=== PATIENT | male | born 1940 | race Caucasian/White ===

== ENCOUNTER 2021-06-28 12:51 | Inpatient (IN) | payer MEDICARE, OTHER ==
[~2021-06-28] VITALS: Ht 162.6 cm; Wt 66.7 kg
--- NOTE | 2021-06-28 13:00 | NUR ---
TONA PA FROM [facility]ARE [facility]ACILITY,LACERATION TO LEFT EYEBROW,S/P UNWITNESSED GLF. THE PATIENT DENIES PAIN. IN ROOM AIR AND DENIES SOB. RESPIRATION REGULAR AND UNLABORED. WILL CONTINUE TO MONITOR THE PATIENT.
--- NOTE | 2021-06-28 13:01 | NUR ---
PT ABLE TO AMBULATE. AWARE.
[2021-06-28] MEDS ORDERED: BACI/NEOM/POLY B OINT PKT 1 UDPKT PACKET TP ONE (13:30)
[2021-06-28] MEDS ORDERED: IV NS 0.9% 500 ML BAG IV ONE (14:00)
[2021-06-28 14:10] LABS: BASOPHILS % (AUTO) 0.3 % (0.0-2.0); HEMATOCRIT 34 % (39-51); HEMOGLOBIN 11.4 g/dL (13.5-17.5); LYMPHOCYTES # (AUTO) 0.8 K/uL (0.8-4.8); LYMPHOCYTES % (AUTO) 15.6 % (20.0-44.0); MEAN CORPUSCULAR HGB CONC 33 g/dl (31.0-36.0); MEAN CORPUSCULAR VOLUME 83 fL (80-96); MONOCYTES # (AUTO) 0.4 K/uL (0.1-1.30); MONOCYTES % (AUTO) 7.9 % (2.0-12.0); NEUTROPHILS # (AUTO) 3.8 K/uL (1.8-8.9); NEUTROPHILS % (AUTO) 72.2 % (43.0-81.0); PLATELET COUNT (AUTO) 172 K/uL (150-450); RED BLOOD CELL COUNT(AUTO) 4.12 MIL/uL (4.5-6.0); WHITE BLOOD COUNT (AUTO) 5.3 K/uL (4.3-11.0)
[2021-06-28] MEDS ORDERED: DOCU-270 PO (14:18)
[2021-06-28] MEDS ORDERED: CHOL200013 PO (14:18)
[2021-06-28] MEDS ORDERED: CRAN400C PO (14:18)
[2021-06-28] MEDS ORDERED: PROP10TA10 PO (14:18)
[2021-06-28] MEDS ORDERED: FERR325T23 PO (14:18)
[2021-06-28] MEDS ORDERED: RISP2TAB85 PO (14:18)
[2021-06-28] MEDS ORDERED: TAMS-12 PO (14:18)
[2021-06-28] MEDS ORDERED: DONE5TAB34 PO (14:18)
[2021-06-28] MEDS ORDERED: GABA-532 PO (14:18)
[2021-06-28] MEDS ORDERED: TRAZ-257 PO (14:18)
[2021-06-28 14:26] LABS: CALCIUM, SERUM 8.6 mg/dL (8.5-10.1); CARBON DIOXIDE 27 mmol/L (21-32); CHLORIDE 94 mmol/L (98-107); CREATININE 0.6 mg/dL (0.6-1.3); GLUCOSE 102 mg/dL (74-106); POTASSIUM 5.1 mmol/L (3.5-5.1); SODIUM SERUM 126 mmol/L (136-145); UREA NITROGEN, BLOOD 20 mg/dL (7-18)
[2021-06-28 14:33] LABS: ALANINE AMINOTRANSFERASE 25 U/L (12-78); ALBUMIN 3.7 g/dL (3.4-5.0); ALKALINE PHOSPHATASE 101 U/L (46-116); ASPARTATE AMINOTRANSFERASE 27 U/L (15-37); BILIRUBIN,DIRECT 0.1 mg/dL (0.0-0.2); BILIRUBIN,TOTAL 0.4 mg/dL (0.2-1.0)
--- NOTE | 2021-06-28 14:34 | NUR ---
COVID ANTIGEN SWAB DONE AND SENT TO THE LAB
[2021-06-28 14:35] LABS: SERUM AMMONIA 16 umol/L (11-32)
[2021-06-28 14:37] LABS: ACETAMINOPHEN < 0 ug/ml (10-30); ALCOHOL, BLOOD < 3 mg/dL (0-0)
--- NOTE | 2021-06-28 15:00 | NUR ---
URINE COLLECTED AND SENT TO THE LAB
[2021-06-28 15:21] LABS: THYROID STIMULATING HORMONE 2.243 uIU/mL (0.358-3.74)
[2021-06-28 15:36] LABS: BILIRUBIN,URINE NEGATIVE (NEGATIVE); COLOR,URINE YELLOW (YELLOW); LEUKOCYTE ESTERASE ,URINE NEGATIVE (NEGATIVE); NITRITE, URINE NEGATIVE (NEGATIVE); PH,URINE 6.5 (5.0-8.0); PROTEIN,URINE NEGATIVE (NEGATIVE); UGLUCOSE NEGATIVE (NEGATIVE); UROBILINOGEN,URINE 0.2 EU/dL (0.2)
[2021-06-28 16:15] LABS: BACTERIA,URINE Few /HPF (None Seen); RBC,URINE 0-2 /HPF (0-2); SQUAMOUS EPITHELIAL CELL,UR Few /HPF (None Seen); WBC,URINE 0-2 /HPF (0-3)
[2021-06-28] MEDS ORDERED: TDAP [DIPH/PERTUSSIS/TET] 0.5 ML VIAL IM ONE ×2 (16:30→16:38)
--- NOTE | 2021-06-28 19:12 | NUR ---
REPORT GIVEN TO NURSE CARLIN FOR JUAN
--- NOTE | 2021-06-28 22:20 | NUR ---
GAVE REPORT TO AKOSUA LANE FOR JUAN
--- NOTE | 2021-06-28 22:30 | NUR ---
RN NOTES TELE PT RECEIVED FROM ER ASSESTED BY TWO PERSONEL WITH DELL.PT AOX1 ABLE TO FOLLOW SIMPLE DIRECTION.RM AIR CAROLINA WELL.NO SIGN SOB DISTRESS NOTED.NO COMPLAIN OF PAIN/DISCOMFORT NOTED.V/S TAKEN AND RECORDED.ALL NEEDS ATTENDED.CALL LIGHT WITHIN REACH.BED LUCK AND LOW POSITION.CONTINUE TO MONITOR.
[2021-06-28] MEDS: TRAZODONE 50 MG TABLET PO SCH (23:24)
[2021-06-28] MEDS: DONEPEZIL 5 MG TABLET PO SCH (23:24)
[2021-06-28] MEDS: TAMSULOSIN 0.4 MG CAP.SR.24H PO SCH (23:24)
[2021-06-28] MEDS: GABAPENTIN 100 MG CAPSULE PO SCH (23:24)
[2021-06-28 23:30] VITALS: BP 123/55
[2021-06-29] VITALS: BP 127/58
[2021-06-29] MEDS: IV NS 0.9% 1,000 ML IV PRN (01:18)
[2021-06-29] MEDS ORDERED: ACETAMINOPHEN 325 MG TABLET PO PRN (01:30)
[2021-06-29] MEDS ORDERED: MAG HYDROX/AL HYDROX/SIMETH 30 ML UDC PO PRN (01:30)
[2021-06-29] MEDS ORDERED: MAGNESIUM HYDROXIDE 30 ML UDC PO PRN (01:30)
[2021-06-29] MEDS ORDERED: ONDANSETRON HCL/PF 4 MG/2 ML VIAL IVP PRN (01:30)
[2021-06-29] MEDS: ENOXAPARIN SODIUM 40 MG/0.4 ML DISP.SYRIN SQ SCH ×2 (01:32→21:27)
--- NOTE | 2021-06-29 01:55 | NUR ---
RN NOTES TELE PT WAS AGITATED.GETTING OUT OF BED MANYTIMES.WONDERING AROUND THE HALLWAY.DOC DEX ORDERED SEROQUEL 25 MG PO ONE TIME.EFFECTIVE.NO A/R NOTED.
[2021-06-29] MEDS ORDERED: QUETIAPINE FUMARATE 25 MG TABLET PO ONE (02:30)
[2021-06-29 03:01] VITALS: BP 123/55
[2021-06-29 04:00] VITALS: BP_SYST 105; BP_SYST 127; BP_DIAS 58; BP_DIAS 60
--- NOTE | 2021-06-29 06:25 | NUR ---
RN CLOSING NOTES TELE PT IN BED SLEEPING IN RM AIR SATING 98%.NO SIGN SOB/DISTRESS NOTED.IV LINE RFA #20G PATENT/INTACT RUNNING 0.9% NS @ 75ML/HRS CAROLINA WELL.BREATHING EVEN AND UNLABORED.NO COMPLAIN PAIN/DISCOMFORT DURING SHIFT.CALL LIGHT WITHIN REACH,SAFETY MEASURED INPLACE.BED LOCKED AND LOW POSITION.WILL ENDORSED NEXT SHIFT.
--- NOTE | 2021-06-29 07:26 | NUR ---
RN NOTES RESTING IN BED, AWAKE AND VERBALLY RESPONSIVE. NOT IN ACUTE DISTRESS. ABLE TO AMBULATE TO BATHROOM W/ ASSIST. CONFUSED, REORIENTATION PROVIDED APPLICABLE. IV LINE INTACT W/ IVF INFUSING. SAFETY MEASURES IN PLACE.
[2021-06-29 08:00] VITALS: BP 139/78
[2021-06-29] MEDS: PROPRANOLOL HCL 10 MG TABLET PO SCH ×2 (08:07→17:10)
[2021-06-29] MEDS: FERROUS SULFATE (325 MG) 325 MG/TAB TABLET PO SCH (08:07)
[2021-06-29] MEDS: DOCUSATE SODIUM 100 MG CAPSULE PO SCH (08:07)
[2021-06-29] MEDS: GABAPENTIN 100 MG CAPSULE PO SCH ×4 (08:07→21:23)
[2021-06-29] MEDS: risperiDONE 0.25 MG TABLET PO SCH ×3 (08:07→17:10)
--- NOTE | 2021-06-29 09:22 | NUR ---
RN NOTES SITTING UP IN CHAIR NEAR BED; DOES NOT WANT IVF AT THIS TIME. ABLE TO EAT BREAKFAST AND DRINK FLUIDS.
--- NOTE | 2021-06-29 09:45 | NUR ---
RN NOTES PT AT BEDSIDE FOR EVAL AND TX.
--- NOTE | 2021-06-29 10:50 | NUR ---
RN NOTES PATIENT SEEN BY SPEECH THERAPIST FOR EVAL; NO SWALLOWING ISSUES PER ST.
[2021-06-29 16:00] VITALS: BP 117/59
--- NOTE | 2021-06-29 19:28 | NUR ---
RN OPENING NOTES TELE PT IN BED SLEEPING IN AIR SATING 98%.NO SIGN SOB/DISTRESS NOTED.IV LINE RFA #20G PATENT/INTACT RUNNING 0.9% NS @ 75ML/HRS CAROLINA WELL.BREATHING EVEN AND UNLABORED.NO COMPLAIN PAIN/DISCOMFORT DURING SHIFT.CALL LIGHT WITHIN REACH,SAFETY MEASURED INPLACE.BED LOCKED AND LOW POSITION.WILL CONTINUE TO MONITOR.. Addendum: 06/30/21 at 1947 by LIANA NICOLE RN ON TELE MONITOR READING NS 76
[2021-06-29 20:00] VITALS: BP 119/60
[2021-06-29] MEDS: DONEPEZIL 5 MG TABLET PO SCH (21:23)
[2021-06-29] MEDS: TRAZODONE 50 MG TABLET PO SCH (21:23)
[2021-06-29] MEDS: TAMSULOSIN 0.4 MG CAP.SR.24H PO SCH (21:23)
[2021-06-30] VITALS: BP 137/69
[2021-06-30] MEDS: IV NS 0.9% 1,000 ML IV PRN (01:02)
[2021-06-30 01:17] VITALS: BP 119/60
[2021-06-30 04:00] VITALS: BP 129/52
--- NOTE | 2021-06-30 06:35 | NUR ---
RN CLOSING NOTES TELE PT IN BED SLEEPING CAROLINA WELL ON ROOM AIR.NO SIGN SOB/DISTRESS NOTED.IV LINE RFA #20G PATENT/INTACT RUNNING 0.9% NS @ 75ML/HRS CAROLINA WELL.BREATHING EVEN AND UNLABORED.NO COMPLAIN PAIN/DISCOMFORT DURING SHIFT.CALL LIGHT WITHIN REACH,SAFETY MEASURED INPLACE.BED LOCKED AND LOW POSITION.WILL ENDORSED NEXT SHIFT.
[2021-06-30 06:42] LABS: BASOPHILS % (AUTO) 0.6 % (0.0-2.0); HEMATOCRIT 32 % (39-51); HEMOGLOBIN 10.6 g/dL (13.5-17.5); LYMPHOCYTES # (AUTO) 1.2 K/uL (0.8-4.8); LYMPHOCYTES % (AUTO) 32.4 % (20.0-44.0); MEAN CORPUSCULAR HGB CONC 33 g/dl (31.0-36.0); MEAN CORPUSCULAR VOLUME 83 fL (80-96); MONOCYTES # (AUTO) 0.6 K/uL (0.1-1.30); MONOCYTES % (AUTO) 15.5 % (2.0-12.0); NEUTROPHILS # (AUTO) 1.7 K/uL (1.8-8.9); NEUTROPHILS % (AUTO) 44.5 % (43.0-81.0); PLATELET COUNT (AUTO) 173 K/uL (150-450); RED BLOOD CELL COUNT(AUTO) 3.83 MIL/uL (4.5-6.0); WHITE BLOOD COUNT (AUTO) 3.8 K/uL (4.3-11.0)
--- NOTE | 2021-06-30 07:00 | NUR ---
FLAKING ROLL OPERATOR NOTES PATIENT WITH TELE MONITOR READING NS 78
--- NOTE | 2021-06-30 07:00 | NUR ---
PRODUCT DEVELOPMENT MANAGER OPENING NOTES PATIENT LAYING IN BED, A/O X 1, ABLE TO MAKE NEEDS KNOWN BUT WITH PERIODS OF CONFUSION. TOLERATING WELL ON ROOM AIR WITH NO SOB OR S/S RESPIRATORY DISTRESS. NO COMPLAINTS OF PAIN OR DISCOMFORT AT THIS TIME. R FA # 20G IV CLEAN, INTACT, AND FLUSHING WELL WITH NS @ 75 ML/HR. SAFETY MEASURES IN PLACE: BED IN LOWEST LOCKED POSITION, SIDE RAILS UP X 2, CALL LIGHT WITHIN REACH. WILL CONTINUE TO MONITOR.
[2021-06-30 07:25] LABS: ALBUMIN 3.2 g/dL (3.4-5.0); BILIRUBIN,TOTAL 0.3 mg/dL (0.2-1.0); CALCIUM, SERUM 8.2 mg/dL (8.5-10.1); CREATININE 0.7 mg/dL (0.6-1.3); MAGNESIUM 2.1 mg/dL (1.8-2.4); PHOSPHORUS 3.9 mg/dL (2.5-4.9); POTASSIUM 4.1 mmol/L (3.5-5.1); TOTAL PROTEIN, SERUM 6.2 g/dL (6.4-8.2)
[2021-06-30 07:48] LABS: THYROID STIMULATING HORMONE 2.51 uIU/mL (0.358-3.74)
[2021-06-30] MEDS: DOCUSATE SODIUM 100 MG CAPSULE PO SCH (08:57)
[2021-06-30] MEDS: GABAPENTIN 100 MG CAPSULE PO SCH ×4 (08:57→21:57)
[2021-06-30] MEDS: risperiDONE 0.25 MG TABLET PO SCH ×3 (08:57→17:19)
[2021-06-30] MEDS: FERROUS SULFATE (325 MG) 325 MG/TAB TABLET PO SCH (08:57)
[2021-06-30] MEDS: PROPRANOLOL HCL 10 MG TABLET PO SCH ×2 (08:58→17:20)
[2021-06-30 09:55] LABS: EOSINOPHILS % (MANUAL) 6 % (0-4); LYMPHOCYTES % (MANUAL) 41 % (16-48); MONOCYTES % (MANUAL) 11 % (0-11.0); NEUTROPHILS % (MANUAL) 42 (42-76)
--- NOTE | 2021-06-30 19:00 | NUR ---
IRRIGATION SPECIALIST CLOSING NOTES PATIENT LAYING IN BED, A/O X 1, ABLE TO MAKE NEEDS KNOWN BUT WITH PERIODS OF CONFUSION. TOLERATING WELL ON ROOM AIR WITH NO SOB OR S/S RESPIRATORY DISTRESS. NO COMPLAINTS OF PAIN OR DISCOMFORT AT THIS TIME. TELE MONITOR IN PLACE READING NS 82. PATIENT WITH IV LINE RECENTLY PULLED OUT, NO IV ACCESS AT THIS TIME. WILL ENDORSE TO HELPER/DRIVER. SAFETY MEASURES IN PLACE: BED IN LOWEST LOCKED POSITION, SIDE RAILS UP X 2, CALL LIGHT WITHIN REACH. ALL NEEDS MET. WILL ENDORSE TO HELPER/DRIVER FOR JUAN.
--- NOTE | 2021-06-30 19:26 | NUR ---
RN OPENING NOTES TELE PT RECEIVED IN AAOX1 ABLE TO FOLLOW SIMPLE DIRECTION.ON RM AIR CAROLINA WELL,NO SIGN SOB/DISTRESS NOTED.NO COMPLAIN PAIN/DISCOMFORT AT THIS TIME.NOTED IV LINE WAS OUT.MORNING NURSE AWARE.PT IN GOOD POSITION HOB ELEVATED.CALL LIGHT WITHIN REACH,SAFETY MEASURED INPLACE.BED LOCKED AND LOW POSITION.WILL CONTINUE TO MONITOR..
[2021-06-30 20:00] VITALS: BP 151/67
[2021-06-30] MEDS: DONEPEZIL 5 MG TABLET PO SCH (21:57)
[2021-06-30] MEDS: TAMSULOSIN 0.4 MG CAP.SR.24H PO SCH (21:57)
[2021-06-30] MEDS: TRAZODONE 50 MG TABLET PO SCH (21:58)
[2021-06-30] MEDS: ENOXAPARIN SODIUM 40 MG/0.4 ML DISP.SYRIN SQ SCH (22:00)
[2021-07-01] VITALS: BP 159/66
[2021-07-01] MEDS: IV NS 0.9% 1,000 ML IV PRN (03:11)
[2021-07-01 03:30] VITALS: BP 156/67
[2021-07-01 04:00] VITALS: BP 125/60
[2021-07-01 06:31] LABS: BASOPHILS % (AUTO) 0.4 % (0.0-2.0); EOSINOPHILS % (AUTO) 6.5 % (0.0-6.0); HEMATOCRIT 33 % (39-51); HEMOGLOBIN 11.1 g/dL (13.5-17.5); LYMPHOCYTES # (AUTO) 1.2 K/uL (0.8-4.8); LYMPHOCYTES % (AUTO) 29.9 % (20.0-44.0); MEAN CORPUSCULAR HGB CONC 33 g/dl (31.0-36.0); MEAN CORPUSCULAR VOLUME 83 fL (80-96); MONOCYTES # (AUTO) 0.6 K/uL (0.1-1.30); MONOCYTES % (AUTO) 16.3 % (2.0-12.0); NEUTROPHILS # (AUTO) 1.8 K/uL (1.8-8.9); NEUTROPHILS % (AUTO) 46.9 % (43.0-81.0); PLATELET COUNT (AUTO) 169 K/uL (150-450); RED BLOOD CELL COUNT(AUTO) 4.03 MIL/uL (4.5-6.0); WHITE BLOOD COUNT (AUTO) 3.9 K/uL (4.3-11.0)
[2021-07-01 06:45] LABS: CALCIUM, SERUM 8.6 mg/dL (8.5-10.1); CREATININE 0.7 mg/dL (0.6-1.3); MAGNESIUM 2.2 mg/dL (1.8-2.4); PHOSPHORUS 3.6 mg/dL (2.5-4.9); POTASSIUM 4.1 mmol/L (3.5-5.1)
--- NOTE | 2021-07-01 07:08 | NUR ---
WHISKEY FILTERER CLOSING NOTES PATIENT LAYING IN BED, A/O X 1, ABLE TO MAKE NEEDS KNOWN BUT WITH PERIODS OF CONFUSION. TOLERATING WELL ON ROOM AIR WITH NO SOB OR S/S RESPIRATORY DISTRESS. NO COMPLAINTS OF PAIN OR DISCOMFORT AT THIS TIME. TELE MONITOR IN PLACE READING NS 61 PATIENT WITH IV LINE RECENTLY PULLED OUT, NO IV ACCESS AT THIS TIME. WILL ENDORSE TO HANDKERCHIEF FOLDER. SAFETY MEASURES IN PLACE: BED IN LOWEST LOCKED POSITION, SIDE RAILS UP X 2, CALL LIGHT WITHIN REACH. ALL NEEDS MET. WILL ENDORSE TO HANDKERCHIEF FOLDER FOR JUAN.
--- NOTE | 2021-07-01 07:30 | NUR ---
SAND SLINGER OPERATOR OPENING NOTES RECEIVED PATIENT ON BED, AWAKE AND A/O X1. ON ROOM AIR TOLERATING WELL. NO SOB NOTED. NOT IN DISTRESS. WITH NO COMPLAINTS OF PAIN AT THIS TIME. ON TELE MONITOR CURRENTLY READING SINUS BRADYCARDIA AT 56BPM. WITH IV ACCESS AT THE RIGHT FOREARM G20 WITH IVF NS AT 75ML/HR INFUSING WELL. SAFETY MEASURES IN PLACED. CALL LIGHT WITHIN REACH. BED ON LOWEST LOCKED POSITION, SIDE RAILS UP X2. WILL CONTINUE TO MONITOR.
--- NOTE | 2021-07-01 07:30 | NUR ---
OPTOMETRY ASSISTANT OPENING NOTES RECEIVED PATIENT ON BED, AWAKE AND A/O X4. ON ROOM AIR TOLERATING WELL. NO SOB NOTED. NOT IN DISTRESS. WITH NO COMPLAINTS OF PAIN AT THIS TIME. ON TELE MONITOR CURRENTLY READING SINUS BRADYCARDIA AT 56BPM. WITH IV ACCESS AT THE RIGHT FOREARM G20 WITH IVF NS AT 75ML/HR INFUSING WELL. SAFETY MEASURES IN PLACED. CALL LIGHT WITHIN REACH. BED ON LOWEST LOCKED POSITION, SIDE RAILS UP X2. WILL CONTINUE TO MONITOR. Addendum: 07/01/21 at 1430 by FAUSTO MANZANO RN ERROR
[2021-07-01 07:56] VITALS: BP 127/51
[2021-07-01] MEDS: PROPRANOLOL HCL 10 MG TABLET PO SCH (09:00)
[2021-07-01] MEDS: GABAPENTIN 100 MG CAPSULE PO SCH ×2 (09:29→12:05)
[2021-07-01] MEDS: FERROUS SULFATE (325 MG) 325 MG/TAB TABLET PO SCH (09:29)
[2021-07-01] MEDS: DOCUSATE SODIUM 100 MG CAPSULE PO SCH (09:29)
[2021-07-01] MEDS: risperiDONE 1 MG TABLET PO SCH ×2 (09:32→12:05)
[2021-07-01 12:00] VITALS: BP 133/51
[2021-07-01 15:57] VITALS: BP 135/89
--- NOTE | 2021-07-01 16:25 | NUR ---
SENIOR APPLICATION SOFTWARE ENGINEERSALES EXHIBITOR NOTES PATIENT WAS SEEN BY DR. KING AND ORDERED PATIENT FOR DISCHARGE TO SNF. DISCHARGE INSTRUCTION AND EDUCATION PROVIDED TO PATIENT AND EXPLAINED MEDICATIONS AND PRESCRIPTIONS. PATIENT VERBALIZED UNDERSTANDING. DISCHARGE FORM AND BELONGINGS LIST FORM SIGNED BY PATIENT. ALL BELONGINGS ACCOUNTED FOR. NAME WRIST BAND AND IV LINE REMOVED. PATIENT WAS PICKED UP BY AMBULANCE PERSONNEL IN STABLE CONDITION VIA GURNEY. MD AND CHARGE NURSE ARE AWARE OF THE DISCHARGE.
== END 2021-07-01 16:20 | DRG 640 ==
LOC: ER 12:53 → TELE 21:57
PROVIDERS: ADMIT Nurse Practitioner Acute Care; ATTEND Nurse Practitioner Acute Care
DX: E86.0 Dehydration (principal); G93.41 Metabolic encephalopathy; M84.48XA Pathological fracture, other site, initial encounter for fracture; S01.112A Laceration without foreign body of left eyelid and periocular area, initial encounter; E87.1 Hypo-osmolality and hyponatremia; G20 Parkinson's disease; Z20.822 Contact with and (suspected) exposure to COVID-19; G30.9 Alzheimer's disease, unspecified; F02.80 Dementia in other diseases classified elsewhere, unspecified severity, without behavioral disturbance, psychotic disturbance, mood disturbance, and anxiety; I10 Essential (primary) hypertension; N40.0 Benign prostatic hyperplasia without lower urinary tract symptoms; D50.9 Iron deficiency anemia, unspecified; H26.9 Unspecified cataract; H52.4 Presbyopia; R26.9 Unspecified abnormalities of gait and mobility; G62.9 Polyneuropathy, unspecified; F32.9 Major depressive disorder, single episode, unspecified; F41.9 Anxiety disorder, unspecified; Z86.16 Personal history of COVID-19; Z79.899 Other long term (current) drug therapy; Y92.129 Unspecified place in nursing home as the place of occurrence of the external cause; W07.XXXA Fall from chair, initial encounter; E86.1 Hypovolemia; Z66 Do not resuscitate; F32.A Depression, unspecified; M19.90 Unspecified osteoarthritis, unspecified site
CPT/HCPCS: 36415; 70450-TC; 71045-TC; 72125-TC; 80048-TC; 80053-TC; 80061-TC; 80076-TC; 81001; 82140-TC; 83540-TC; 83735-TC; 84100-TC; 84443-TC; 84484-TC; 85025-TC; 85730-TC; 87081-TC; 90715; 92526; 92611-TC; 93307-TC; 97116-TC; 97530-TC; C9803; G0378; G0480; J1650; J7030; J7040

== ENCOUNTER 2021-07-31 18:59 | Inpatient (IN) | payer MEDICARE, OTHER ==
[~2021-07-31] VITALS: Ht 165.1 cm; Wt 71.7 kg
[~2021-07-31 18:59] MED LIST: CHOL200013 PO; CRAN400C PO; DOCU-270 PO; DONE5TAB34 PO; FERR325T23 PO; GABA-532 PO; PROP10TA10 PO; RISP2TAB85 PO; TAMS-12 PO; TRAZ-257 PO
--- NOTE | 2021-07-31 19:17 | NUR ---
BRAEDEN FROM [facility] FOR C/O COUGH AND SOB X 1 DAY. PATIENT IS ABLE TO AMBULATE, PLACED ON BED, AAOX4, WITH O2 2LIT VIA NC SATURATING AT 95%, BREATHING EVEN UNLABORED.
--- NOTE | 2021-07-31 19:45 | NUR ---
BLOOD DRAWN, SWAB FOR COVID19, RAPID ANTIGEN SENT TO LAB
[2021-07-31 20:06] LABS: BASOPHILS % (AUTO) 0.2 % (0.0-2.0); EOSINOPHILS % (AUTO) 7.2 % (0.0-6.0); HEMATOCRIT 30 % (39-51); HEMOGLOBIN 10.1 g/dL (13.5-17.5); LYMPHOCYTES # (AUTO) 0.4 K/uL (0.8-4.8); MEAN CORPUSCULAR HGB CONC 34 g/dl (31.0-36.0); MEAN CORPUSCULAR VOLUME 82 fL (80-96); MONOCYTES # (AUTO) 0.5 K/uL (0.1-1.30); MONOCYTES % (AUTO) 8.2 % (2.0-12.0); NEUTROPHILS # (AUTO) 4.8 K/uL (1.8-8.9); NEUTROPHILS % (AUTO) 78.4 % (43.0-81.0); PLATELET COUNT (AUTO) 162 K/uL (150-450); RED BLOOD CELL COUNT(AUTO) 3.62 MIL/uL (4.5-6.0); WHITE BLOOD COUNT (AUTO) 6.1 K/uL (4.3-11.0)
[2021-07-31 20:10] LABS: ABG BASE EXCESS 0.9 mmol/L; ABG PCO2 41.9 mmHg (35.0-45.0); ABG PH 7.406 (7.350-7.450); ABG PO2 81.3 mmHg (75.0-100.0); COHb 0.5 % (0.5-1.5); MetHb 0.3 % (0.0-1.5); O2Hb 94.3 % (94.0-97.0); SITE, ABG Right Radial
[2021-07-31 20:30] LABS: CALCIUM, SERUM 8.2 mg/dL (8.5-10.1); CARBON DIOXIDE 26 mmol/L (21-32); CHLORIDE 95 mmol/L (98-107); CREATININE 1.1 mg/dL (0.6-1.3); GLUCOSE 181 mg/dL (74-106); POTASSIUM 4.2 mmol/L (3.5-5.1); SODIUM SERUM 128 mmol/L (136-145); UREA NITROGEN, BLOOD 23 mg/dL (7-18)
--- NOTE | 2021-07-31 20:31 | NUR ---
MRSA SWAB COLLECTED AND SENT TO LAB. PATIENT'S BELONGINGS LIST DONE.
--- NOTE | 2021-07-31 20:42 | NUR ---
LACTIC ACID 2.6; DR ALEXANDRIA YANCEY AWARE
[2021-07-31 20:43] LABS: ALANINE AMINOTRANSFERASE 21 U/L (12-78); ALBUMIN 3.3 g/dL (3.4-5.0); ALKALINE PHOSPHATASE 97 U/L (46-116); ASPARTATE AMINOTRANSFERASE 15 U/L (15-37); BILIRUBIN,DIRECT 0.1 mg/dL (0.0-0.2); BILIRUBIN,TOTAL 0.2 mg/dL (0.2-1.0); TOTAL PROTEIN, SERUM 6.7 g/dL (6.4-8.2)
[2021-07-31] MEDS ORDERED: CEFEPIME 1 GM in IV D5W 50 ML IV ONE (21:00)
[2021-07-31] MEDS ORDERED: CEFEPIME 1 GM VIAL ONE (21:02)
[2021-07-31] MEDS ORDERED: LIDOCAINE 2% JEL UROJET 10 ML MM ONE (21:04)
--- NOTE | 2021-07-31 21:12 | NUR ---
URINE SAMPLE COLLECTED AND SENT TO LAB
--- NOTE | 2021-07-31 21:13 | NUR ---
URINE SAMPLE SENT TO LAB
[2021-07-31 21:27] LABS: BILIRUBIN,URINE NEGATIVE (NEGATIVE); COLOR,URINE YELLOW (YELLOW); LEUKOCYTE ESTERASE ,URINE NEGATIVE (NEGATIVE); NITRITE, URINE NEGATIVE (NEGATIVE); PH,URINE 5.5 (5.0-8.0); PROTEIN,URINE NEGATIVE (NEGATIVE); UGLUCOSE NEGATIVE (NEGATIVE); UROBILINOGEN,URINE 0.2 EU/dL (0.2)
[2021-07-31 21:30] LABS: BACTERIA,URINE None seen /HPF (None Seen); MUCUS,URINE Few /LPF (None Seen); WBC,URINE 0-2 /HPF (0-3)
[2021-07-31] MEDS ORDERED: ONDANSETRON HCL/PF 4 MG/2 ML VIAL IVP PRN (21:30)
[2021-07-31] MEDS ORDERED: IV NS 0.9% 1,000 ML IV PRN (21:30)
[2021-07-31] MEDS ORDERED: Z GUARD REMEDY 4 OZ OINT TP PRN (21:30)
[2021-07-31] MEDS ORDERED: ZOLPIDEM TARTRATE 5 MG TABLET PO PRN (21:30)
[2021-07-31] MEDS ORDERED: MAG HYDROX/AL HYDROX/SIMETH 30 ML UDC PO PRN (21:30)
[2021-07-31] MEDS ORDERED: ACETAMINOPHEN 325 MG TABLET PO PRN (21:30)
[2021-07-31] MEDS ORDERED: MAGNESIUM HYDROXIDE 30 ML UDC PO PRN (21:30)
[2021-07-31 21:31] LABS: SQUAMOUS EPITHELIAL CELL,UR 0-2 /HPF (None Seen)
[2021-07-31] MEDS ORDERED: FUROSEMIDE 20 MG/2 ML VIAL IV ONE (22:30)
[2021-07-31] MEDS ORDERED: GABAPENTIN 100 MG CAPSULE ONE (23:23)
[2021-08-01] MEDS ORDERED: VANCOMYCIN 1.25 GM in IV D5W 250 ML IV ONE (01:00)
[2021-08-01] MEDS ORDERED: VANCOMYCIN 1 GM VIAL ONE (01:06)
[2021-08-01] MEDS ORDERED: FUROSEMIDE 20 MG/2 ML VIAL ONE (01:06)
[2021-08-01] MEDS ORDERED: GABAPENTIN 100 MG CAPSULE ONE (01:06)
[2021-08-01] MEDS ORDERED: DONEPEZIL 5 MG TABLET ONE (01:07)
[2021-08-01] MEDS ORDERED: TAMSULOSIN 0.4 MG CAP.SR.24H ONE (01:07)
[2021-08-01] MEDS ORDERED: VANCOMYCIN 500 MG VIAL ONE (01:08)
[2021-08-01] MEDS: DONEPEZIL 5 MG TABLET PO SCH ×2 (01:18→21:11)
[2021-08-01] MEDS: GABAPENTIN 100 MG CAPSULE PO SCH ×5 (01:18→20:47)
[2021-08-01] MEDS: TAMSULOSIN 0.4 MG CAP.SR.24H PO SCH ×2 (01:18→21:11)
--- NOTE | 2021-08-01 02:49 | NUR ---
CALLED RADIOLOGY FOR STAT CTA
[2021-08-01] MEDS ORDERED: IPRATROPIUM NEB FS 0.5 MG/2.5 ML AMPUL.NEB NEB PRN (03:00)
[2021-08-01] MEDS ORDERED: IV NS 0.9% 250 ML IV ONE (03:14)
[2021-08-01] MEDS ORDERED: IOHEXOL-350 100 ML VIAL IV ONE (03:14)
--- NOTE | 2021-08-01 04:03 | NUR ---
PT AMBULATED TO RESTROOM WITH ASSIST. ADLS DONE.
[2021-08-01 06:07] LABS: BASOPHILS % (AUTO) 0.2 % (0.0-2.0); EOSINOPHILS % (AUTO) 7.3 % (0.0-6.0); HEMATOCRIT 33 % (39-51); HEMOGLOBIN 11.1 g/dL (13.5-17.5); LYMPHOCYTES # (AUTO) 0.5 K/uL (0.8-4.8); LYMPHOCYTES % (AUTO) 8.5 % (20.0-44.0); MEAN CORPUSCULAR HGB CONC 33 g/dl (31.0-36.0); MEAN CORPUSCULAR VOLUME 82 fL (80-96); MONOCYTES # (AUTO) 1.1 K/uL (0.1-1.30); NEUTROPHILS # (AUTO) 4.1 K/uL (1.8-8.9); PLATELET COUNT (AUTO) 166 K/uL (150-450); RED BLOOD CELL COUNT(AUTO) 4.04 MIL/uL (4.5-6.0); WHITE BLOOD COUNT (AUTO) 6.2 K/uL (4.3-11.0)
[2021-08-01 06:48] LABS: CALCIUM, SERUM 8.5 mg/dL (8.5-10.1); CARBON DIOXIDE 30 mmol/L (21-32); CHLORIDE 94 mmol/L (98-107); CREATININE 0.8 mg/dL (0.6-1.3); GLUCOSE 103 mg/dL (74-106); MAGNESIUM 2.1 mg/dL (1.8-2.4); PHOSPHORUS 3.7 mg/dL (2.5-4.9); SODIUM SERUM 130 mmol/L (136-145); UREA NITROGEN, BLOOD 17 mg/dL (7-18)
--- NOTE | 2021-08-01 07:15 | NUR ---
RECEIVING PT IN ROOM ASLEEPY RESPIRATION SPONT AND EASY WATING FOR TELMETRY BED VS STABLE
--- NOTE | 2021-08-01 07:59 | NUR ---
report given to the floor nurse, continue plan of care.
--- NOTE | 2021-08-01 08:08 | NUR ---
TO ROOM 315-1 VIA ARJUN STABLE VS NO SOB
[2021-08-01] MEDS ORDERED: ACET-868 PO (08:30)
[2021-08-01] MEDS ORDERED: BISA10SU11 RC (08:30)
[2021-08-01] MEDS ORDERED: SODI1TAB66 PO (08:30)
[2021-08-01] MEDS ORDERED: NA P133E RC (08:30)
[2021-08-01] MEDS ORDERED: MAG30ORA PO (08:30)
[2021-08-01] MEDS ORDERED: MAGN400O6 PO (08:30)
[2021-08-01] MEDS ORDERED: CRANBERRY PO SCH (09:00)
[2021-08-01] MEDS: CHOLECALCIFEROL 1,000 UNIT TABLET (VIT D3) PO SCH (09:22)
[2021-08-01] MEDS: FERROUS SULFATE (325 MG) 325 MG/TAB TABLET PO SCH (09:22)
[2021-08-01] MEDS: DOCUSATE SODIUM 100 MG CAPSULE PO SCH (09:22)
[2021-08-01] MEDS: PROPRANOLOL HCL 10 MG TABLET PO SCH ×2 (09:23→20:49)
[2021-08-01 12:00] VITALS: BP 124/57
[2021-08-01] MEDS: ENOXAPARIN SODIUM 40 MG/0.4 ML DISP.SYRIN SQ SCH (12:02)
[2021-08-01 14:06] LABS: BAND % (MANUAL) 2 % (0.0-5.0); EOSINOPHILS % (MANUAL) 10 % (0-4); LYMPHOCYTES % (MANUAL) 8 % (16-48); MONOCYTES % (MANUAL) 13 % (0-11.0); NEUTROPHILS % (MANUAL) 67 (42-76)
[2021-08-01] MEDS: VANCOMYCIN 0.75 GM in IV D5W 250 ML IV SCH (14:42)
[2021-08-01] MEDS: ACETYLCYSTEINE 10% SOLN 400 MG/4 ML VIAL NEB SCH (15:30)
[2021-08-01 16:00] VITALS: BP 131/68
--- NOTE | 2021-08-01 18:09 | NUR ---
SHIFT SUMMARY VSS, AFEBRILE, A/O X1-2. WITH EPISODES OF CONFUSION. FREQUENT RE-ORIENTATION NEEDED. ON 02 AT 5 LPM VIA NC, SOB NOTED. HOB KEPT 45 DEGREES AT ALL TIMES. IV ACCESS ON R WRIST #20G SL, SR 70S ON THE TELE MONITOR. SAFETY MEASURES MAINTAINED. BED IN LOWEST POSITION, BRAKES LOCKED. SIDE RAILS UP X2. CALL LIGHT WITHIN REACH. WILL ENDORSE CONTINUITY OF CARE TO ONCOMING SHIFT.
--- NOTE | 2021-08-01 19:33 | NUR ---
SCALEMAKER OPENING NOTES RECEIVED PT IN THE RESTROOM. A/O X 1-2. RE-ORIENTED TO SITUATION AND ADVISED TO ASK FOR ASSISTANCE. NO C/O PAIN OR DISCOMFORT AT THIS TIME. RE-ATTACHED O2 AT 5 LPM VIA NC. NO SOB OR NOTED. HOB KEPT AT 45 DEGREES. ON TELE MONITOR READING SINUS RHYTHM AT 83 BPM. HAS RIGHT WRIST IV ACCESS #20G WITH IVPB VANCO RUNNING AT 250 ML/HR. NO S/S OF INFILTRATION NOTED. SAFETY PRECAUTIONS IN PLACE. WILL CONTINUE PLAN OF CARE.
[2021-08-01 20:00] VITALS: BP 109/57
[2021-08-01] MEDS ORDERED: CEFEPIME 1 GM in IV D5W 50 ML IV SCH (21:00)
[2021-08-01] MEDS: TRAZODONE 50 MG TABLET PO SCH (21:11)
[2021-08-02] VITALS: BP 136/53
[2021-08-02] MEDS: ACETYLCYSTEINE 10% SOLN 400 MG/4 ML VIAL NEB SCH ×4 (00:26→23:55)
[2021-08-02] MEDS: ALBUTEROL FS 2.5 MG/3 ML VIAL.NEB NEB PRN ×2 (00:26→23:55)
[2021-08-02] MEDS: VANCOMYCIN 0.75 GM in IV D5W 250 ML IV SCH ×2 (01:14→13:17)
--- NOTE | 2021-08-02 01:46 | NUR ---
FIELD SPECIALIST NOTES PT PULLED OUT HIS IV LINE. WHEN I ASKED HIM WHY HE DID THAT, HE ANSWERED "I DON'T SEE ANY REASON WHY NOT". EXPLAINED THAT HE NEEDS HIS IV LINE FOR HIS ANTIBIOTICS. NEEDS FREQUENT RE-ORIENTATION. RE-INSERTED IV LINE ON RIGHT FOREARM AND COVERED W/ GAUZE TO SECURE.
[2021-08-02 04:00] VITALS: BP 109/48
[2021-08-02 06:15] LABS: BASOPHILS % (AUTO) 0.4 % (0.0-2.0); HEMATOCRIT 28 % (39-51); HEMOGLOBIN 9.8 g/dL (13.5-17.5); LYMPHOCYTES # (AUTO) 0.9 K/uL (0.8-4.8); LYMPHOCYTES % (AUTO) 24.5 % (20.0-44.0); MEAN CORPUSCULAR HGB CONC 35 g/dl (31.0-36.0); MEAN CORPUSCULAR VOLUME 81 fL (80-96); MONOCYTES % (AUTO) 29.5 % (2.0-12.0); NEUTROPHILS # (AUTO) 1.3 K/uL (1.8-8.9); NEUTROPHILS % (AUTO) 36.6 % (43.0-81.0); PLATELET COUNT (AUTO) 167 K/uL (150-450); RED BLOOD CELL COUNT(AUTO) 3.49 MIL/uL (4.5-6.0); WHITE BLOOD COUNT (AUTO) 3.5 K/uL (4.3-11.0)
[2021-08-02 06:16] LABS: CALCIUM, SERUM 7.9 mg/dL (8.5-10.1); CARBON DIOXIDE 29 mmol/L (21-32); CHLORIDE 94 mmol/L (98-107); CREATININE 0.7 mg/dL (0.6-1.3); GLUCOSE 85 mg/dL (74-106); POTASSIUM 3.9 mmol/L (3.5-5.1); SODIUM SERUM 128 mmol/L (136-145); UREA NITROGEN, BLOOD 18 mg/dL (7-18)
--- NOTE | 2021-08-02 06:50 | NUR ---
WATER CONSERVATION SPECIALIST CLOSING NOTES PT LYING IN BED WITH EYES CLOSED. EASY TO AROUSE. A/O X 1-2. FREQUENT RE-ORIENTATION NEEDED. BREATHING EVEN AND NON-LABORED. HAS O2 AT 5 LPM VIA NC. DENIES PAIN AT THIS TIME. AFEBRILE. ON TELE MONITOR READING SINUS RHYTHM AT 63 BPM. HAS RIGHT FOREARM IV ACCESS #20G AND SALINE LOCKED. INTACT, PATENT AND FLUSHING. ALL NEEDS ATTENDED AND ANTICIPATED. SAFETY PRECAUTIONS IN PLACE: BED LOW AND LOCKED, SIDE RAILS UP X2, CALL LIGHT WITHIN REACH.
--- NOTE | 2021-08-02 07:52 | NUR ---
SECURITY GUARD OPENING NOTES: RECEIVED PATIENT AWAKE, ALERT AND ORIENTED X 1 PATIENT NEEDS TO BE REORIENTED, PATIENT IS FORGETFUL. NO SOB OR CARDIAC DISTRESS NOTED, ON O2 INHALATION @5LPM VIA NC, AFEBRILE. DENIES PAIN AT THIS TIME. ON BLOCK MACHINE OPERATOR: WITH CURRENT READING OF SINUS @59 BPM WITH BBB. NOTED WITH RFA G#20 SALINE LOCKED PATENT AND INTACT. KEPT RESTED AND COMFORTABLE. SAFETY MEASURES MAINTAINED: BED IN LOWEST AND LOCKED POSITION, SIDE RAILS UP X2. CALL LIGHT IN EASY REACH FOR HELP/ASSISTANCE. WILL MONITOR ACCORDINGLY.
[2021-08-02 08:00] VITALS: BP 134/67
[2021-08-02] MEDS: PROPRANOLOL HCL 10 MG TABLET PO SCH ×2 (08:39→20:11)
[2021-08-02] MEDS: CHOLECALCIFEROL 1,000 UNIT TABLET (VIT D3) PO SCH (08:40)
[2021-08-02] MEDS: GABAPENTIN 100 MG CAPSULE PO SCH ×4 (08:40→20:11)
[2021-08-02] MEDS: FERROUS SULFATE (325 MG) 325 MG/TAB TABLET PO SCH (08:40)
[2021-08-02] MEDS: DOCUSATE SODIUM 100 MG CAPSULE PO SCH (08:41)
[2021-08-02] MEDS: ENOXAPARIN SODIUM 40 MG/0.4 ML DISP.SYRIN SQ SCH (08:47)
[2021-08-02] MEDS: CEFEPIME 1 GM in IV D5W 50 ML IV SCH ×2 (11:22→23:24)
[2021-08-02 12:00] VITALS: BP 128/68
[2021-08-02 14:02] LABS: EOSINOPHILS % (MANUAL) 11 % (0-4); LYMPHOCYTES % (MANUAL) 25 % (16-48); MONOCYTES % (MANUAL) 28 % (0-11.0); NEUTROPHILS % (MANUAL) 36 (42-76)
[2021-08-02 18:00] VITALS: BP 115/71
--- NOTE | 2021-08-02 18:46 | NUR ---
WILDLIFE REFUGE MANAGER CLOSING NOTES: PATIENT AWAKE, ALERT AND ORIENTED X 1 PATIENT NEEDS TO BE REORIENTED, PATIENT IS FORGETFUL. NO SOB OR CARDIAC DISTRESS NOTED, ON O2 INHALATION @5LPM VIA NC, AFEBRILE. DENIES PAIN AT THIS TIME. ON SLAB POLISHER: WITH CURRENT READING OF SINUS @ 68 BPM WITH BBB. NOTED WITH RFA G#20 SALINE LOCKED PATENT AND INTACT. EPISODES OF COUGH NOTED. KEPT RESTED AND COMFORTABLE. SAFETY MEASURES MAINTAINED: BED IN LOWEST AND LOCKED POSITION, SIDE RAILS UP X2. CALL LIGHT IN EASY REACH FOR HELP/ASSISTANCE. WILL MONITOR ACCORDINGLY. ENDORSED TO BULB INSPECTOR NURSE FOR CONTINUITY OF CARE.
--- NOTE | 2021-08-02 19:14 | NUR ---
SENIOR SOFTWARE QA ANALYST OPENING NOTES RECEIVED PT LYING IN BED AWAKE, HOB ELEVATED AT 75 DEGREES. A/O X1. FREQUENT RE-ORIENTATION NEEDED. NO SOB OR NOTED. ON O2 AT 3LPM VIA NC. NO C/O PAIN OR DISCOMFORT AT THIS TIME. ON TELE MONITOR READING SINUS RHYTHM AT 75 BPM. HAS RIGHT FOREARM IV ACCESS #20G AND SALINE LOCKED. NO S/S OF INFILTRATION NOTED. SAFETY MEASURES IN PLACE. WILL CONTINUE PLAN OF CARE.
[2021-08-02 20:00] VITALS: BP 137/63
[2021-08-02] MEDS: TRAZODONE 50 MG TABLET PO SCH (23:08)
[2021-08-02] MEDS: TAMSULOSIN 0.4 MG CAP.SR.24H PO SCH (23:08)
[2021-08-02] MEDS: DONEPEZIL 5 MG TABLET PO SCH (23:08)
[2021-08-03] VITALS: BP 139/69
[2021-08-03] MEDS: VANCOMYCIN 0.75 GM in IV D5W 250 ML IV SCH ×2 (01:14→12:27)
--- NOTE | 2021-08-03 01:29 | NUR ---
RAG SORTER AND CUTTER NOTES PT KEPT COUGHING, DIFFICULTY GETTING THE SPUTUM OUT. NOTIFIED DARREL CASTILLO AND ORDERED MUCINEX 600 MG Q6H PRN. NOTED AND CARRIED OUT. Addendum: 08/03/21 at 0553 by July WILMER SOUTH CALLED C[facility]AL BENIGNO AND SPOKE W/ SHIV TO GET AN ALTERNATIVE FOR MUCINEX 600 MG SINCE PT IS HAVING TROUBLE SWALLOWING BIG PILLS, CAN'T CRUSH OR CUT. SHE GAVE GUAIFENESIN 300 MG/15 ML. UPDATING ORDER. Addendum: 08/03/21 at 0621 by July WILMER SOUTH GUAIFENESIN 300MG/15 ML STILL UNVERIFIED. WILL ENDORSE TO AM NURSE.
[2021-08-03] MEDS ORDERED: GUAIFENESIN LA 600 MG TABLET.SA PO PRN (01:30)
[2021-08-03 04:00] VITALS: BP 145/61
[2021-08-03 06:17] LABS: BASOPHILS % (AUTO) 0.4 % (0.0-2.0); EOSINOPHILS % (AUTO) 9.4 % (0.0-6.0); HEMATOCRIT 30 % (39-51); LYMPHOCYTES % (AUTO) 28.7 % (20.0-44.0); MEAN CORPUSCULAR HGB CONC 33 g/dl (31.0-36.0); MEAN CORPUSCULAR VOLUME 82 fL (80-96); MONOCYTES # (AUTO) 0.9 K/uL (0.1-1.30); NEUTROPHILS # (AUTO) 1.2 K/uL (1.8-8.9); NEUTROPHILS % (AUTO) 35.5 % (43.0-81.0); PLATELET COUNT (AUTO) 181 K/uL (150-450); RED BLOOD CELL COUNT(AUTO) 3.68 MIL/uL (4.5-6.0); WHITE BLOOD COUNT (AUTO) 3.4 K/uL (4.3-11.0)
--- NOTE | 2021-08-03 06:21 | NUR ---
BOILING HOUSE HAND CLOSING NOTES PT LYING IN BED ASLEEP. HOB ELEVATED AT 45 DEGREES. EASY TO AROUSE. A/O X1-2. NEEDS FREQUENT RE-ORIENTATION AND RE-DIRECTION. UNSTEADY GAIT NOTED WHEN GETTING OUT OF BED. REMINDED THAT HE CAN USE THE URINAL OR PRESS THE CALL LIGHT FOR ASSISTANCE. ON O2 AT 3LPM VIA NC. OCCASIONAL SOB NOTED. DENIES PAIN AT THIS TIME. AFEBRILE. ON TELE MONITOR READING SINUS RHYTHM AT 65 BPM. HAS RIGHT FOREARM IV ACCESS #20G AND SALINE LOCKED. INTACT, PATENT AND FLUSHING. ALL NEEDS ATTENDED AND ANTICIPATED. SAFETY MEASURES IN PLACE: BED LOW AND LOCKED, SIDE RAILS UP X3, CALL LIGHT WITHIN REACH.
[2021-08-03 06:43] LABS: CALCIUM, SERUM 8.2 mg/dL (8.5-10.1); CREATININE 0.6 mg/dL (0.6-1.3)
--- NOTE | 2021-08-03 07:55 | NUR ---
RN OPENING NOTE PATIENT RECEIVED IN BED, SLEEPING, CONFUSED. ABLE TO RESPONDS ALL STIMULI. IN NO ACUTE DISTRESS NOTED. RESPIRATORY EVEN AND UNLABORED ON OXYGEN AT 3Ls VIA NC, NOTICED PATIENT IS ATTEMPT PULLING OFF OXYGEN TUBE. SKIN IS WARM TO TOUCH, KEEP CLEAN/DRY. KEPT ELEVATED HOB FOR ENSURE AIRWAY AND ASPIRATION PRECAUTION, ALSO LOWEST POSITION OF THE BED, S/R UP X 3, BED ALARM IS ON AT ALL THE TIMES. ALL SAFETY PRECAUTION APPLIED. CALL LIGHT WITHIN REACH, WILL CONTINUE TO MONITOR.
[2021-08-03 08:00] VITALS: BP 137/55
[2021-08-03] MEDS: ACETYLCYSTEINE 10% SOLN 400 MG/4 ML VIAL NEB SCH ×3 (08:09→23:18)
[2021-08-03] MEDS: FERROUS SULFATE (325 MG) 325 MG/TAB TABLET PO SCH (09:11)
[2021-08-03] MEDS: DOCUSATE SODIUM 100 MG CAPSULE PO SCH (09:11)
[2021-08-03] MEDS: GABAPENTIN 100 MG CAPSULE PO SCH ×4 (09:11→21:15)
[2021-08-03] MEDS: CHOLECALCIFEROL 1,000 UNIT TABLET (VIT D3) PO SCH (09:11)
[2021-08-03] MEDS: ENOXAPARIN SODIUM 40 MG/0.4 ML DISP.SYRIN SQ SCH (09:13)
[2021-08-03] MEDS: PROPRANOLOL HCL 10 MG TABLET PO SCH ×2 (09:13→21:15)
[2021-08-03 09:55] LABS: BAND % (MANUAL) 1 % (0.0-5.0); EOSINOPHILS % (MANUAL) 8 % (0-4); LYMPHOCYTES % (MANUAL) 30 % (16-48); MONOCYTES % (MANUAL) 19 % (0-11.0); NEUTROPHILS % (MANUAL) 42 (42-76)
[2021-08-03] MEDS: GUAIFENESIN 300 MG/15 ML UDC PO PRN ×2 (11:13→21:17)
[2021-08-03] MEDS: CEFEPIME 1 GM in IV D5W 50 ML IV SCH (11:36)
[2021-08-03 16:00] VITALS: BP 156/65
--- NOTE | 2021-08-03 18:46 | NUR ---
RN CLOSING NOTE PATIENT IN BED RESTING, IN NO ACUTE DISTRESS OBSERVED. NOTED ATTEMPTING OUT OF BED AND TAKING OFF OXYGEN TUBE. PATIENT STARTING SOFT WRIST RESTRAINTS ON BILATERAL. RESPIRATORY EVEN AND UNLABORED ON OXYGEN AT 3 Ls VIA NC. SKIN IS WARM TO TOUCH, KEEP CLEAN/DRY, INTACT IN SITE. KEPT ELEVATED HOB FOR ENSURE AIRWAY AND ASPIRATION PRECAUTION. ALSO LOWEST POSITION OF THE BED FOR SAFETY. BED ALARM IS ON AT ALL THE TIMES FOR SAFETY. CALL LIGHT WITHIN REACH, WILL ENDORSE TO ASSISTANT DIRECTOR OF NURSING.
--- NOTE | 2021-08-03 19:30 | NUR ---
RN OPENING NOTES RECEIVED PATIENT IN BED; AWAKE, ALERT AND ORIENTED X1. WITH OXYGEN INHALATION VIA NASAL CANNULA @ 3LPM. BREATHING EVENLY AND NONLABORED. NOT IN ANY FORM OF RESPIRATORY DISTRESS. WITH BILATERAL SOFT WRIST RESTRAINTS; SKIN AND CIRCULATION WITHIN NORMAL LIMITS. WITH IV ACCESS ON RIGHT FOREARM G#20; PATENT, INTACT AND SALINE LOCKED. ON TELEMETRY MONITORING WITH CURRENT READING OF SINUS RHYTHM HR 66 BPM. SAFETY MEASURES AND ASPIRATION PRECAUTION IMPLEMENTED: HEAD OF BED ELEVATED @ 45 DEGREES, CALL LIGHT AND TABLE WITHIN EASY REACH, SIDE RAILS UP X2, BED IN LOWEST LOCKED POSITION. WILL CONTINUE TO MONITOR
[2021-08-03 20:00] VITALS: BP 171/66
[2021-08-03] MEDS: DONEPEZIL 5 MG TABLET PO SCH (21:15)
[2021-08-03] MEDS: TAMSULOSIN 0.4 MG CAP.SR.24H PO SCH (21:16)
[2021-08-03] MEDS: TRAZODONE 50 MG TABLET PO SCH (21:16)
[2021-08-03] MEDS: ALBUTEROL FS 2.5 MG/3 ML VIAL.NEB NEB PRN (23:18)
[2021-08-04] VITALS: BP_SYST 124; BP_SYST 141; BP_DIAS 58; BP_DIAS 65
[2021-08-04] MEDS ORDERED: IPRATROPIUM NEB FS 0.5 MG/2.5 ML AMPUL.NEB NEB PRN (02:00)
[2021-08-04] MEDS ORDERED: ALBUTEROL FS 2.5 MG/0.5 ML VIAL.NEB NEB PRN (02:00)
[2021-08-04 04:00] VITALS: BP 137/59
--- NOTE | 2021-08-04 07:00 | NUR ---
MS RN OPENING NOTES PATIENT LAYING IN BED, A/O X 1, ABLE TO MAKE NEEDS KNOWN. TOLERATING WELL ON 2 LPM O2 VIA CANNULA WITH NO S/S RESPIRATORY DISTRESS. BILATERAL SOFT WRIST RESTRAINTS IN PLACE WITH CIRCULATION, MOTOR, AND SENSATION INTACT DISTALLY X 2. ON TELE MONITOR READING SINUS LYNN 58. SAFETY MEASURES IN PLACE: BED IN LOWEST LOCKED POSITION, SIDE RAILS UP X 2, CALL LIGHT WITHIN REACH. WILL CONTINUE TO MONITOR.
--- NOTE | 2021-08-04 07:03 | NUR ---
RN CLOSING NOTES PATIENT IS IN BED; AWAKE, A/O X1. WITH O2 INHALATION @ 2LPM VIA NASAL CANNULA. WITH BILATERAL SOFT RESTRAINTS; SKIN AND CIRCULATION WITHIN NORMAL LIMITS. IN NO ACUTE DISTRESS NOTED. ON TELEMETRY MONITORING WITH CURRENT READING OF SINUS RHYTHM HR-68 BPM. NEEDS ATTENDED. KEPT COMFORTABLE. SAFETY MEASURES IN PLACE. ENDORSED TO MORNING NURSE FOR JUAN.
[2021-08-04] MEDS: ACETYLCYSTEINE 10% SOLN 400 MG/4 ML VIAL NEB SCH ×2 (07:51→15:09)
[2021-08-04 08:27] VITALS: BP 140/56
[2021-08-04] MEDS: CHOLECALCIFEROL 1,000 UNIT TABLET (VIT D3) PO SCH (08:37)
[2021-08-04] MEDS: FERROUS SULFATE (325 MG) 325 MG/TAB TABLET PO SCH (08:38)
[2021-08-04] MEDS: GABAPENTIN 100 MG CAPSULE PO SCH ×3 (08:38→17:15)
[2021-08-04] MEDS: DOCUSATE SODIUM 100 MG CAPSULE PO SCH (08:38)
[2021-08-04] MEDS: PROPRANOLOL HCL 10 MG TABLET PO SCH (08:38)
[2021-08-04] MEDS: ENOXAPARIN SODIUM 40 MG/0.4 ML DISP.SYRIN SQ SCH (08:39)
[2021-08-04 15:45] VITALS: BP 146/56
--- NOTE | 2021-08-04 16:06 | NUR ---
RECEIVED PATIENT ON 2LNC SATURATIONS AT 98%. Q8 MUCOMYST HHN TX TOLERATING WELL WITH NO ADVERSE REACTION NOTED.
[2021-08-04] MEDS ORDERED: IPRA0.2S9 NEB (16:12)
[2021-08-04] MEDS ORDERED: ACET1OOV6 NEB (16:12)
[2021-08-04] MEDS ORDERED: ALBUT2 NEB (16:12)
--- NOTE | 2021-08-04 18:30 | NUR ---
MUFFLER MECHANICMEAT PACKAGER NOTES PATIENT INFORMED OF MD DISCHARGE ORDER. PATIENT UNABLE TO VERBALIZE OR SIGN MD DISCHARGE INSTRUCTIONS, INSTRUCTIONS WERE EXPLAINED IN PRESENCE OF PATIENT AND FORM WAS CO-SIGNED WITH RN. PATIENT ALSO UNABLE TO VERBALIZE POSSESSION OF BELONGINGS OR SIGN BELONGINGS SHEET, PER SHEET PATIENT HAD NO BELONGINGS AND NO BELONGINGS WERE VISIBLE IN ROOM. PATIENT BELONGINGS LIST WAS CO-SIGNED WITH CLIENT REPRESENTATIVE. IV LINE AND ID BADGE REMOVED. TELE MONITOR REMOVED. PATIENT TITRATED OFF OF OXYGEN AND TOLERATED WELL ON ROOM AIR. PATIENT REMOVED FROM BILATERAL SOFT WRIST RESTRAINTS AND DID NOT DISPLAY AGITATION OR WANDERING. REPORT CALLED TO [facility] AND SPOKE WITH AKOSUA COLE. REPORT GIVEN TO 2 PIN INSERTER AND PATIENT TRANSPORTED OFF OF UNIT VIA GURNEY.
== END 2021-08-04 18:46 | DRG 871 ==
LOC: ER 19:01 → TRANSITION 08-01 00:07 → TELE 08-01 07:55
PROVIDERS: ADMIT Nurse Practitioner Acute Care; ATTEND Nurse Practitioner Acute Care
DX: A41.9 Sepsis, unspecified organism (principal); J96.01 Acute respiratory failure with hypoxia; G93.41 Metabolic encephalopathy; I50.31 Acute diastolic (congestive) heart failure; D68.59 Other primary thrombophilia; E87.2 Acidosis; E44.0 Moderate protein-calorie malnutrition; E87.1 Hypo-osmolality and hyponatremia; Z86.16 Personal history of COVID-19; E88.09 Other disorders of plasma-protein metabolism, not elsewhere classified; Z20.822 Contact with and (suspected) exposure to COVID-19; F02.80 Dementia in other diseases classified elsewhere, unspecified severity, without behavioral disturbance, psychotic disturbance, mood disturbance, and anxiety; G30.9 Alzheimer's disease, unspecified; G20 Parkinson's disease; N40.0 Benign prostatic hyperplasia without lower urinary tract symptoms; G62.9 Polyneuropathy, unspecified; R26.9 Unspecified abnormalities of gait and mobility; F32.A Depression, unspecified; F41.9 Anxiety disorder, unspecified; G47.00 Insomnia, unspecified; D50.9 Iron deficiency anemia, unspecified; H26.9 Unspecified cataract; H52.4 Presbyopia; Z79.899 Other long term (current) drug therapy; I11.0 Hypertensive heart disease with heart failure; M19.90 Unspecified osteoarthritis, unspecified site; Z74.09 Other reduced mobility; S09.90XS Unspecified injury of head, sequela; X58.XXXS Exposure to other specified factors, sequela; R79.89 Other specified abnormal findings of blood chemistry; F29 Unspecified psychosis not due to a substance or known physiological condition
CPT/HCPCS: 36415; 36600; 71045-TC; 76770-TC; 80048-TC; 80076-TC; 80202-TC; 81001; 82803-TC; 83605-TC; 83735-TC; 83880; 84100-TC; 84484-TC; 85025-TC; 85378-TC; 85730-TC; 87040-TC; 87081-TC; 87086-TC; 92526; 92611-TC; 94799-TC; C9803; G0378; J0692; J1650; J1940; J2405; J3370; J3490; J7050; J7060; Q9967

== ENCOUNTER 2021-11-07 10:46 | Inpatient (IN) | payer MEDICARE, OTHER ==
[~2021-11-07] VITALS: Ht 160 cm; Wt 73.9 kg
[~2021-11-07 10:46] MED LIST changes: +ACET-868 PO; +ACET1OOV6 NEB; +ALBUT2 NEB; +BISA10SU11 RC; +IPRA0.2S9 NEB; +MAG30ORA PO; +MAGN400O6 PO; +NA P133E RC; +SODI1TAB66 PO
--- NOTE | 2021-11-07 10:46 | NUR ---
BRAEDEN from [facility] for increase agitation, weakness productive cough since yesterday. PLACED ON BED, AWAKE ALERT RESPONDING TO VERBAL STIMULI, BREATHING EVEN AND UNLABORED SATURATING AT 97%RA.
[2021-11-07] MEDS ORDERED: BENZ1TAB7 PO (11:04)
[2021-11-07] MEDS ORDERED: IPRA12.9 IH (11:04)
[2021-11-07] MEDS ORDERED: AMIN30LI2 PO (11:04)
[2021-11-07] MEDS ORDERED: ALBU8.5H8 IH ×2 (11:04)
[2021-11-07] MEDS ORDERED: RISP0.2515 PO (11:04)
--- NOTE | 2021-11-07 11:50 | NUR ---
BLOOD DRAWN AND SENT TO LAB
--- NOTE | 2021-11-07 11:51 | NUR ---
PATIENT TAKEN TO CT VIA DELL
[2021-11-07 12:06] LABS: BASOPHILS % (AUTO) 0.3 % (0.0-2.0); HEMATOCRIT 31 % (39-51); LYMPHOCYTES % (AUTO) 28.1 % (20.0-44.0); MEAN CORPUSCULAR HGB CONC 33 g/dl (31.0-36.0); MEAN CORPUSCULAR VOLUME 79 fL (80-96); MONOCYTES # (AUTO) 0.6 K/uL (0.1-1.30); MONOCYTES % (AUTO) 17.3 % (2.0-12.0); NEUTROPHILS # (AUTO) 1.4 K/uL (1.8-8.9); NEUTROPHILS % (AUTO) 39.3 % (43.0-81.0); PLATELET COUNT (AUTO) 194 K/uL (150-450); RED BLOOD CELL COUNT(AUTO) 3.85 MIL/uL (4.5-6.0); WHITE BLOOD COUNT (AUTO) 3.7 K/uL (4.3-11.0)
--- NOTE | 2021-11-07 12:26 | NUR ---
urine sample sent to lab
[2021-11-07 12:30] LABS: CALCIUM, SERUM 8.6 mg/dL (8.5-10.1); CARBON DIOXIDE 30 mmol/L (21-32); CHLORIDE 98 mmol/L (98-107); CREATININE 0.8 mg/dL (0.6-1.3); GLUCOSE 87 mg/dL (74-106); POTASSIUM 4.4 mmol/L (3.5-5.1); SODIUM SERUM 134 mmol/L (136-145); UREA NITROGEN, BLOOD 27 mg/dL (7-18)
[2021-11-07 12:34] LABS: ALANINE AMINOTRANSFERASE 25 U/L (12-78); ALBUMIN 3.6 g/dL (3.4-5.0); ALKALINE PHOSPHATASE 81 U/L (46-116); ASPARTATE AMINOTRANSFERASE 17 U/L (15-37); BILIRUBIN,DIRECT 0.1 mg/dL (0.0-0.2); BILIRUBIN,TOTAL 0.2 mg/dL (0.2-1.0); TOTAL PROTEIN, SERUM 7.1 g/dL (6.4-8.2)
[2021-11-07 12:41] LABS: SERUM AMMONIA 24 umol/L (11-32)
[2021-11-07 12:46] LABS: THYROID STIMULATING HORMONE 2.507 uIU/mL (0.358-3.74)
--- NOTE | 2021-11-07 12:52 | NUR ---
SWAB FOR COVID19 SENT TO LAB
[2021-11-07 13:31] LABS: BILIRUBIN,URINE NEGATIVE (NEGATIVE); COLOR,URINE YELLOW (YELLOW); LEUKOCYTE ESTERASE ,URINE NEGATIVE (NEGATIVE); NITRITE, URINE NEGATIVE (NEGATIVE); PROTEIN,URINE NEGATIVE (NEGATIVE); UGLUCOSE NEGATIVE (NEGATIVE); UROBILINOGEN,URINE 0.2 EU/dL (0.2)
--- NOTE | 2021-11-07 15:33 | NUR ---
PT REPORT GIVEN TO AKOSUA MARCIAL
[2021-11-07] MEDS ORDERED: MAGNESIUM HYDROXIDE 30 ML UDC PO PRN ×2 (16:00→18:30)
[2021-11-07] MEDS ORDERED: ACETAMINOPHEN 325 MG TABLET PO PRN ×2 (16:00→18:30)
[2021-11-07] MEDS ORDERED: BLOOD SUGAR DIAGNOSTIC 1 EACH STRIP IN ONE (16:00)
[2021-11-07] MEDS ORDERED: MAG HYDROX/AL HYDROX/SIMETH 30 ML UDC PO PRN ×2 (16:00→18:30)
--- NOTE | 2021-11-07 16:10 | NUR ---
RN-CO: LIYAH WAS NOTIFIED OF THIS ADMISSION AND GAVE HIS ADMITTING ORDERS. DR DOYLE MADE AWARE AND REQUESTED TO RECONCILE HOME MEDICATIONS. PATIENTS RIGHTS BOOKLET WAS GIVEN TO THE PATIENT.
[2021-11-07 16:28] LABS: BASOPHILS % (MANUAL) 0 % (0.0-2.0); EOSINOPHILS % (MANUAL) 7 % (0-4); LYMPHOCYTES % (MANUAL) 27 % (16-48); MONOCYTES % (MANUAL) 15 % (0-11.0); NEUTROPHILS % (MANUAL) 51 (42-76)
--- NOTE | 2021-11-07 17:27 | NUR ---
RN-CO: Patient was admitted on a 5150 hold for GD, per hold patient is agitated, non compliant , confused and disorganized. Patient came from [facility]. Upon face to face assessment patient is alert to name only, confused, restless and disorganized. He can ambulate with a walker and he needs constant redirections. His skin is intact and free from open wound and bruises. All belongings were screened from contraband. He was oriented to the unit and plan of care were initiated.His rights as a patient were discussed (with agricultural plow operator.)
--- NOTE | 2021-11-07 18:18 | NUR ---
RN-CO: Per sister Ann, patient had complete COVID vaccine.
[2021-11-07] MEDS ORDERED: NA PHOS,M-B/NA PHOS,DI-BA 1 EA ENEMA RC PRN (18:30)
[2021-11-07] MEDS ORDERED: BISACODYL SUPP (10 MG) 10 MG/SUPP.RECT SUPP.RECT RC PRN (18:30)
--- NOTE | 2021-11-07 19:30 | NUR ---
GPS RN OPENING NOTES: RECEIVED PATIENT IN HALLWAY SITTING IN ARACELI CHAIR, AWAKE A/O TO NAME ONLY. PATIENT APPEARS DEPRESSED, LABILE, FLAT AFFECT, ANXIOUS, RESTLESS, DISORGANIZED, DISORIENTED CONFUSED. UNABLE TO GIVE APPROPRIATE ANSWERS TO QUESTIONS. NEEDS FREQUENT REDIRECTION. NO S/S OF DISTRESS. RESPIRATION EVEN AND UNLABORED WITH EQUAL RISE AND FALL OF THE CHEST, ON ROOM AIR. PATIENT IS OFFERED FLUID AND SNACKS TOLERATED. WILL CONTINUE TO MONITOR Q15 MINS FOR MOOD, BEHAVIOR AND SAFETY. Addendum: 11/07/21 at 2024 by ZAMZAM MELENDEZ RN ERROR CHARTED UNDER ANOTHER STAFF
[2021-11-07] MEDS: ALBUTEROL FS 2.5 MG/0.5 ML VIAL.NEB NEB SCH (20:30)
[2021-11-07] MEDS: GABAPENTIN 100 MG CAPSULE PO SCH (20:38)
[2021-11-07] MEDS: SODIUM CHLORIDE 1000 MG TABLET PO SCH (20:38)
[2021-11-07] MEDS: LORAZEPAM 0.5 MG TABLET PO PRN (20:44)
--- NOTE | 2021-11-07 20:44 | NUR ---
RT Pt refused Q12 neb tx. Was in activity room, and educated on the purpose of tx. Does not appear SOB . RN Fa notified and aware. Left number in case pt calls for tx.
--- NOTE | 2021-11-07 20:48 | NUR ---
GPS RN NOTES: PATIENT IS RESTLESS, ANXIOUS, DIFFICULT TO REDIRECT. ATIVAN 0.5MG 2TABS GIVEN PO AT 2043. WILL CONTINUE TO MONITOR.
[2021-11-07] MEDS: ZOLPIDEM TARTRATE 5 MG TABLET PO PRN (21:27)
[2021-11-07] MEDS: TAMSULOSIN 0.4 MG CAP.SR.24H PO SCH (21:27)
[2021-11-07] MEDS: DONEPEZIL 5 MG TABLET PO SCH (21:27)
--- NOTE | 2021-11-07 21:31 | NUR ---
GPS RN NOTES: AMBIEN 5MG GIVEN PO FOR SLEEP AT 2126. WILL CONTINUE TO MONITOR.
[2021-11-07 21:59] VITALS: BP 129/71
[2021-11-08 07:03] LABS: ALANINE AMINOTRANSFERASE 25 U/L (12-78); ALKALINE PHOSPHATASE 86 U/L (46-116); ASPARTATE AMINOTRANSFERASE 19 U/L (15-37); BILIRUBIN,TOTAL 0.4 mg/dL (0.2-1.0); CALCIUM, SERUM 8.9 mg/dL (8.5-10.1); CARBON DIOXIDE 26 mmol/L (21-32); CHLORIDE 97 mmol/L (98-107); CREATININE 0.9 mg/dL (0.6-1.3); GLUCOSE 120 mg/dL (74-106); POTASSIUM 4.5 mmol/L (3.5-5.1); SODIUM SERUM 133 mmol/L (136-145); TOTAL PROTEIN, SERUM 7.6 g/dL (6.4-8.2); UREA NITROGEN, BLOOD 27 mg/dL (7-18)
[2021-11-08 07:06] LABS: CHOLESTEROL 167 mg/dL (<200); HDL CHOLESTEROL 60 mg/dL (40-60); LDL 97 mg/dL (0-99); TRIGLYCERIDES 47 mg/dL (30-150)
[2021-11-08] MEDS: ALBUTEROL FS 2.5 MG/0.5 ML VIAL.NEB NEB SCH ×2 (07:30→21:05)
[2021-11-08 08:00] VITALS: BP 128/64
--- NOTE | 2021-11-08 08:05 | NUR ---
RN OPENING NOTE PATIENT AWAKE IN ARACELI CHAIR. A/O X1, CONFUSED, DISORIENTED. NO S/S OF PAIN NOTED AT THIS TIME. ON ROOM AIR, NO DISTRESS OR SHORTNESS OF BREATH NOTED. PATIENT COMPLAINT WITH MEDICATION. PATIENT DENIES SUICIDE IDEATION AND HOMICIDAL IDEATION AT THIS TIME. PATIENT EDUCATED ON THE USE OF CALL ROCA. FALL AND SAFETY MEASURES IN PLACE, BED ALARM ON, BED IN LOW AND LOCK POSITION, CALL LIGHT AND TABLE WITHIN EASY REACH, SIDE RAILS UP X2. WILL CONTINUE TO MONITOR Q15 MINUTES WITH THE HELP OF STAFF TO MAINTAIN SAFETY.
[2021-11-08] MEDS: GABAPENTIN 100 MG CAPSULE PO SCH ×4 (08:41→21:38)
[2021-11-08] MEDS: SODIUM CHLORIDE 1000 MG TABLET PO SCH (08:41)
[2021-11-08] MEDS: PROPRANOLOL HCL 10 MG TABLET PO SCH ×2 (08:42→16:44)
[2021-11-08] MEDS ORDERED: Medication Not On Formulary EA (Sodium Chloride 1 GM) PO SCH (09:00)
[2021-11-08] MEDS ORDERED: ALBUTEROL SULFATE 8 GM HFA.AER.AD IH SCH (09:00)
--- NOTE | 2021-11-08 09:04 | NUR ---
AMILCAR Initial Discharge Plan: Patient resides at [facility] [address] [place] [address] ([phone]). AMILCAR contacted Ileana curtis who stated pt is welcomed back. AMILCAR will work with the MD, family, and treatment team to help coordinate appropriate discharge.
--- NOTE | 2021-11-08 09:04 | NUR ---
AMILCAR Clinical Note: Pt placed on a 5150 hold for GD. Pt was aggressive at her facility [facility] [id number] [place] [id number] ([phone]). AMILCAR spoke with Ileana curtis who stated pt is welcomed back.
--- NOTE | 2021-11-08 09:05 | NUR ---
Treatment Plan: Pt was very confused and unable to sign treatment plan.
--- NOTE | 2021-11-08 10:34 | NUR ---
AMILCAR Family Contact: AMILCAR contacted pt's sister Ann ([phone]) and notified of pt's admission. SW discussed treatment/discharge plan, she stated she would want pt back to [facility] when stable.
[2021-11-08 16:00] VITALS: BP 139/59
[2021-11-08] MEDS: risperiDONE 1 MG TABLET PO SCH (16:42)
[2021-11-08] MEDS: BENZTROPINE MESYLATE (1 MG) 1 MG TABLET PO SCH (16:42)
[2021-11-08] MEDS: FERROUS SULFATE (325 MG) 325 MG/TAB TABLET PO SCH (17:02)
[2021-11-08] MEDS: DOCUSATE SODIUM 100 MG CAPSULE PO SCH (17:02)
--- NOTE | 2021-11-08 19:44 | NUR ---
GPS RN OPENING NOTES: RECEIVED PATIENT IN HALLWAY SITTING IN ARACELI CHAIR, AWAKE A/O X1. PATIENT APPEARS DEPRESSED, FLAT AFFECT, DISHEVELED, PASSIVE, WITHDRAWN, DISORGANIZED, DISORIENTED CONFUSED. UNABLE TO GIVE APPROPRIATE ANSWERS TO QUESTIONS. NO S/S OF DISTRESS. RESPIRATION EVEN AND UNLABORED WITH EQUAL RISE AND FALL OF THE CHEST, ON ROOM AIR. PATIENT IS OFFERED FLUID AND SNACKS TOLERATED. WILL CONTINUE TO MONITOR Q15 MINS FOR MOOD, BEHAVIOR AND SAFETY.
[2021-11-08 20:00] VITALS: BP 121/71
[2021-11-08] MEDS: DONEPEZIL 5 MG TABLET PO SCH (21:50)
[2021-11-08] MEDS: TAMSULOSIN 0.4 MG CAP.SR.24H PO SCH (21:51)
[2021-11-08] MEDS: TRAZODONE 50 MG TABLET PO SCH (21:51)
[2021-11-08] MEDS: ZOLPIDEM TARTRATE 5 MG TABLET PO PRN (22:22)
--- NOTE | 2021-11-08 22:22 | NUR ---
GPS RN NOTES: AMBIEN 5MG GIVEN PO FOR SLEEP AT 2222. WILL CONTINUE TO MONITOR.
--- NOTE | 2021-11-09 03:25 | NUR ---
GPS RN NOTES: PATIENT HAS BEEN COUGHING FREQUENTLY WITH NON PRODUCTIVE COUGH. PATIENT TESTED NEGATIVE FOR COVID-19 ON 11/07/21. PATIENT IS ON SCHEDULED VENTOLIN BREATHING TREATMENT BRONCHOSPASM AND THE NEXT TREATMENT IS 729. DR ROMO HAS BEEN NOTIFIED AND VENTOLIN 2.5MG/0.5ML NEB Q6HRS PRN ORDERED. OUT PHARMACY HAVE BEEN CALLED TO VERIFY ORDER.
[2021-11-09] MEDS ORDERED: ALBUTEROL FS 2.5 MG/3 ML VIAL.NEB NEB PRN (03:30)
[2021-11-09] MEDS: ALBUTEROL FS 2.5 MG/0.5 ML VIAL.NEB NEB SCH ×2 (07:46→20:43)
[2021-11-09 08:00] VITALS: BP 149/89
[2021-11-09] MEDS: SODIUM CHLORIDE 1000 MG TABLET PO SCH (08:50)
[2021-11-09] MEDS: GABAPENTIN 100 MG CAPSULE PO SCH ×4 (08:50→21:00)
[2021-11-09] MEDS: PROPRANOLOL HCL 10 MG TABLET PO SCH ×2 (08:51→16:39)
[2021-11-09] MEDS: risperiDONE 1 MG TABLET PO SCH ×2 (08:51→16:38)
[2021-11-09] MEDS: BENZTROPINE MESYLATE (1 MG) 1 MG TABLET PO SCH ×2 (08:51→16:38)
[2021-11-09] MEDS: LORAZEPAM 0.5 MG TABLET PO PRN (15:48)
--- NOTE | 2021-11-09 15:49 | NUR ---
RN-NOTES NOTED PATIENT VERY ANXIOUS GETTING OUT THE CHAIR UNATTENDED. ATIVAN 1MG P.O GIVEN PRN ORDER. WILL CONT. MONITORING FOR SAFETY AND BEHAVIOR.
[2021-11-09 16:00] VITALS: BP 147/68
--- NOTE | 2021-11-09 16:50 | NUR ---
RN-NOTES PATIENT IN THE DAY ROOM WATCHING TV,CALM,NO ACUTE DISTRESS NOTED.
[2021-11-09] MEDS: DOCUSATE SODIUM 100 MG CAPSULE PO SCH (17:32)
[2021-11-09] MEDS: FERROUS SULFATE (325 MG) 325 MG/TAB TABLET PO SCH (17:32)
--- NOTE | 2021-11-09 19:30 | NUR ---
RECEIVED PT SITTING IN ARACELI CHAIR, AWAKE A/O X1. PATIENT APPEARS DEPRESSED, FLAT AFFECT, DISHEVELED, PASSIVE, WITHDRAWN, DISORGANIZED, DISORIENTED CONFUSED. UNABLE TO GIVE APPROPRIATE ANSWERS TO QUESTIONS. NO S/S OF DISTRESS. RESPIRATION EVEN AND UNLABORED WITH EQUAL RISE AND FALL OF THE CHEST, ON ROOM AIR. NO S/S OR COMPLAINTS OF PAIN AT THIS TIME. PT IS DISPLAYING NO S/S OF APPARENT DISTRESS AT THIS TIME. PT DENIES SUICIDE IDEATIONS AND HOMICIDAL IDEATIONS AT THIS TIME. PT IS AMBULATORY STEADY GAIT. PT HAS NO NEEDS AT THIS TIME. WILL CONTINUE TO MONITOR Q15 MIN WITH THE HELP OF STAFF TO MAINTAIN SAFETY.
[2021-11-09 20:00] VITALS: BP 114/89
[2021-11-09] MEDS: TAMSULOSIN 0.4 MG CAP.SR.24H PO SCH (21:00)
[2021-11-09] MEDS: DONEPEZIL 5 MG TABLET PO SCH (21:00)
[2021-11-09] MEDS: TRAZODONE 50 MG TABLET PO SCH (21:00)
[2021-11-09] MEDS: ZOLPIDEM TARTRATE 5 MG TABLET PO PRN (22:10)
[2021-11-10] MEDS: LORAZEPAM 0.5 MG TABLET PO PRN (01:51)
--- NOTE | 2021-11-10 06:40 | NUR ---
PT ASLEEP IN BED BUT EASILY AWAKENS, NO S/S OR COMPLAINTS OF PAIN AT THIS TIME. PT IS DISPLAYING NO S/S OF APPARENT DISTRESS AT THIS TIME. PT BREATHING IS UNLABORED WITH EQUAL RISE AND FALL OF THE CHEST. PT IS ALERT AND ORIENTED X1. ON ROOM AIR. PT DENIES SUICIDE IDEATIONS AND HOMICIDAL IDEATIONS AT THIS TIME. DUE MEDS AND PRN MED GIVEN ORDERED AND NEEDED. NEEDS ATTENDED. SAFETY PRECAUTIONS MAINTAINED, PT BED SIDE RAILS UP X2 FOR SAFETY. BED IS LOCKED AND IN LOW POSITION. WILL ENDORSE TO NEXT NURSE ON DUTY FOR CONTINUITY OF CARE.
[2021-11-10 08:00] VITALS: BP 113/71
[2021-11-10] MEDS: ALBUTEROL FS 2.5 MG/0.5 ML VIAL.NEB NEB SCH ×2 (08:17→21:11)
[2021-11-10] MEDS: BENZTROPINE MESYLATE (1 MG) 1 MG TABLET PO SCH ×2 (08:32→17:29)
[2021-11-10] MEDS: SODIUM CHLORIDE 1000 MG TABLET PO SCH (08:32)
[2021-11-10] MEDS: risperiDONE 1 MG TABLET PO SCH ×2 (08:32→17:29)
[2021-11-10] MEDS: PROPRANOLOL HCL 10 MG TABLET PO SCH ×2 (08:33→17:30)
[2021-11-10] MEDS: GABAPENTIN 100 MG CAPSULE PO SCH ×4 (08:35→21:25)
[2021-11-10 16:00] VITALS: BP 140/60
[2021-11-10] MEDS: ALBUTEROL FS 2.5 MG/0.5 ML VIAL.NEB NEB PRN (16:03)
[2021-11-10] MEDS: DOCUSATE SODIUM 100 MG CAPSULE PO SCH (17:29)
[2021-11-10] MEDS: FERROUS SULFATE (325 MG) 325 MG/TAB TABLET PO SCH (17:31)
--- NOTE | 2021-11-10 18:53 | NUR ---
RN-NOTES PATIENT IS CALM AND COOPERATIVE WITH CARE,COMPLIANT WITH MEDICATIONS. NEEDS MODERATE ASSIST WITH ADL'S AND AMBULATIONS. ALL NEEDS ATTENDED AND ANTICIPATED. WILL CONT. MONITORING FOR SAFETY AND BEHAVIOR. WILL ENDORSE TO INCOMING SHIFT FOR CONTINUITY OF CARE.
--- NOTE | 2021-11-10 19:30 | NUR ---
RECEIVED PT SITTING IN ARACELI CHAIR, AWAKE A/O X1. PATIENT HAS FLAT AFFECT, PASSIVE, DISORIENTED AND CONFUSED. UNABLE TO GIVE APPROPRIATE ANSWERS TO QUESTIONS. NO S/S OF DISTRESS. NO SOB, RESPIRATION EVEN AND UNLABORED WITH EQUAL RISE AND FALL OF THE CHEST, ON ROOM AIR. NO S/S OR COMPLAINTS OF PAIN AT THIS TIME. PT DENIES SUICIDE IDEATIONS AND HOMICIDAL IDEATIONS AT THIS TIME. PT AMBULATES WITH ASSISTANCE AND WITH WALKER. PT HAS NO NEEDS AT THIS TIME. WILL CONTINUE TO MONITOR Q15 MIN WITH THE HELP OF STAFF TO MAINTAIN SAFETY.
[2021-11-10 20:45] VITALS: BP 147/62
[2021-11-10] MEDS: TAMSULOSIN 0.4 MG CAP.SR.24H PO SCH (21:25)
[2021-11-10] MEDS: TRAZODONE 50 MG TABLET PO SCH (21:25)
[2021-11-10] MEDS: ZOLPIDEM TARTRATE 5 MG TABLET PO PRN (21:25)
[2021-11-10] MEDS: DONEPEZIL 5 MG TABLET PO SCH (21:25)
--- NOTE | 2021-11-11 06:10 | NUR ---
PT ASLEEP IN BED, A/O X1. PATIENT IS PASSIVE, DISORIENTED AND CONFUSED. UNABLE TO GIVE APPROPRIATE ANSWERS TO QUESTIONS. NO S/S OF DISTRESS. NO SOB, RESPIRATION EVEN AND UNLABORED WITH EQUAL RISE AND FALL OF THE CHEST, ON ROOM AIR. NO S/S OR COMPLAINTS OF PAIN AT THIS TIME. PT DENIES SUICIDE IDEATIONS AND HOMICIDAL IDEATIONS AT THIS TIME. PT AMBULATES WITH ASSISTANCE AND WITH WALKER. DUE MEDS AND PRN MEDS GIVEN ORDERED AND NEEDED. PT HAS NO NEEDS AT THIS TIME. SAFETY PRECAUTIONS MAINTAINED. WILL ENDORSE TO NEXT NURSE ON DUTY FOR CONTINUITY OF CARE.
[2021-11-11 07:38] LABS: BASOPHILS % (AUTO) 0.3 % (0.0-2.0); EOSINOPHILS % (AUTO) 2.7 % (0.0-6.0); HEMATOCRIT 28 % (39-51); HEMOGLOBIN 9.3 g/dL (13.5-17.5); LYMPHOCYTES # (AUTO) 1.1 K/uL (0.8-4.8); LYMPHOCYTES % (AUTO) 21.7 % (20.0-44.0); MEAN CORPUSCULAR HGB CONC 33 g/dl (31.0-36.0); MEAN CORPUSCULAR VOLUME 78 fL (80-96); MONOCYTES # (AUTO) 0.8 K/uL (0.1-1.30); MONOCYTES % (AUTO) 15.9 % (2.0-12.0); NEUTROPHILS # (AUTO) 3.1 K/uL (1.8-8.9); NEUTROPHILS % (AUTO) 59.4 % (43.0-81.0); PLATELET COUNT (AUTO) 196 K/uL (150-450); RED BLOOD CELL COUNT(AUTO) 3.63 MIL/uL (4.5-6.0); WHITE BLOOD COUNT (AUTO) 5.3 K/uL (4.3-11.0)
[2021-11-11 08:00] VITALS: BP 153/62
[2021-11-11] MEDS: ALBUTEROL FS 2.5 MG/0.5 ML VIAL.NEB NEB SCH ×2 (08:11→21:19)
[2021-11-11 08:29] LABS: CALCIUM, SERUM 8.1 mg/dL (8.5-10.1); CREATININE 0.7 mg/dL (0.6-1.3); POTASSIUM 3.9 mmol/L (3.5-5.1)
[2021-11-11] MEDS: GABAPENTIN 100 MG CAPSULE PO SCH ×4 (08:40→21:11)
[2021-11-11] MEDS: BENZTROPINE MESYLATE (1 MG) 1 MG TABLET PO SCH ×2 (08:40→17:28)
[2021-11-11] MEDS: risperiDONE 1 MG TABLET PO SCH ×2 (08:40→17:28)
[2021-11-11] MEDS: PROPRANOLOL HCL 10 MG TABLET PO SCH ×2 (08:41→17:00)
[2021-11-11] MEDS: SODIUM CHLORIDE 1000 MG TABLET PO SCH (08:41)
[2021-11-11 10:22] LABS: EOSINOPHILS % (MANUAL) 4 % (0-4); LYMPHOCYTES % (MANUAL) 18 % (16-48); MONOCYTES % (MANUAL) 11 % (0-11.0); NEUTROPHILS % (MANUAL) 67 (42-76)
[2021-11-11] MEDS: LORAZEPAM 0.5 MG TABLET PO PRN (10:43)
--- NOTE | 2021-11-11 10:45 | NUR ---
NURSE NOTE: PT AGITATED AT THIS TIME. ATIVAN ADMINISTERED ORDERED. WILL CONT TO MONITOR.
--- NOTE | 2021-11-11 11:15 | NUR ---
NURSE NOTES: PT CALM AT THIS TIME. NO AGITATION NOTED. ATIVAN EFFECTIVE. WILL CONT TO MONITOR.
[2021-11-11 16:00] VITALS: BP 111/52
[2021-11-11] MEDS: DOCUSATE SODIUM 100 MG CAPSULE PO SCH (17:27)
[2021-11-11] MEDS: FERROUS SULFATE (325 MG) 325 MG/TAB TABLET PO SCH (17:28)
--- NOTE | 2021-11-11 18:47 | NUR ---
NURSE NOTE: PT IS CALM AND COOPERATIVE WITH CARE,MED COMPLIANT. MODERATE ASSIST WITH ADL'S AND AMBULATIONS. DID REQUIRE PRN BREATHING TREATMENT D/T WHEEZING. ALL NEEDS ATTENDED AND ANTICIPATED. WILL CONT. TO MONITOR FOR SAFETY AND BEHAVIOR. WILL ENDORSE TO INCOMING SHIFT FOR CONTINUITY OF CARE.
[2021-11-11 20:42] VITALS: BP 151/64
[2021-11-11] MEDS: TAMSULOSIN 0.4 MG CAP.SR.24H PO SCH (21:11)
[2021-11-11] MEDS: DONEPEZIL 5 MG TABLET PO SCH (21:11)
[2021-11-11] MEDS: TRAZODONE 50 MG TABLET PO SCH (21:12)
[2021-11-11] MEDS: ZOLPIDEM TARTRATE 5 MG TABLET PO PRN (22:55)
--- NOTE | 2021-11-12 04:13 | NUR ---
GPS RN NOTES NOTIFIED LOGISTICS MANAGER KELLY REGARDING SODIUM LEVEL RESULT OF 129. AWAITING RESPONSE. CHARGE NURSE AWARE. WILL ENDORSE TO DAY SHIFT NURSE FOR CONTINUITY OF CARE.
[2021-11-12 06:20] LABS: BASOPHILS % (AUTO) 0.2 % (0.0-2.0); EOSINOPHILS % (AUTO) 2.6 % (0.0-6.0); HEMATOCRIT 28 % (39-51); HEMOGLOBIN 9.1 g/dL (13.5-17.5); LYMPHOCYTES # (AUTO) 1.2 K/uL (0.8-4.8); LYMPHOCYTES % (AUTO) 21.8 % (20.0-44.0); MEAN CORPUSCULAR HGB CONC 33 g/dl (31.0-36.0); MEAN CORPUSCULAR VOLUME 78 fL (80-96); MONOCYTES % (AUTO) 18.6 % (2.0-12.0); NEUTROPHILS # (AUTO) 3.2 K/uL (1.8-8.9); NEUTROPHILS % (AUTO) 56.8 % (43.0-81.0); PLATELET COUNT (AUTO) 197 K/uL (150-450); RED BLOOD CELL COUNT(AUTO) 3.54 MIL/uL (4.5-6.0); WHITE BLOOD COUNT (AUTO) 5.6 K/uL (4.3-11.0)
[2021-11-12 06:59] LABS: CALCIUM, SERUM 8.2 mg/dL (8.5-10.1); CREATININE 0.7 mg/dL (0.6-1.3); MAGNESIUM 2.1 mg/dL (1.8-2.4); PHOSPHORUS 3.9 mg/dL (2.5-4.9)
[2021-11-12] MEDS: ALBUTEROL FS 2.5 MG/0.5 ML VIAL.NEB NEB SCH ×2 (07:00→15:29)
[2021-11-12 08:00] VITALS: BP 158/90
[2021-11-12] MEDS: risperiDONE 1 MG TABLET PO SCH ×2 (08:50→17:43)
[2021-11-12] MEDS: GABAPENTIN 100 MG CAPSULE PO SCH ×4 (08:50→20:20)
[2021-11-12] MEDS: PROPRANOLOL HCL 10 MG TABLET PO SCH ×2 (08:51→17:44)
[2021-11-12] MEDS: BENZTROPINE MESYLATE (1 MG) 1 MG TABLET PO SCH ×2 (08:51→17:43)
[2021-11-12] MEDS: SODIUM CHLORIDE 1000 MG TABLET PO SCH (09:14)
[2021-11-12 16:04] VITALS: BP 127/64
--- NOTE | 2021-11-12 18:00 | NUR ---
TEXTED DR DOYLE REGARDING ELEVATED WBC IN URINE WELL ELEVATED WBC. NO NEW ORDERS AT THIS TIME. Addendum: 11/12/21 at 1927 by ROXIE NORRIS RN WRONG PT
[2021-11-12] MEDS: DOCUSATE SODIUM 100 MG CAPSULE PO SCH (18:21)
[2021-11-12] MEDS: FERROUS SULFATE (325 MG) 325 MG/TAB TABLET PO SCH (18:21)
[2021-11-12] MEDS: ALBUTEROL FS 2.5 MG/0.5 ML VIAL.NEB NEB PRN (19:22)
[2021-11-12 20:15] VITALS: BP 119/75
[2021-11-12] MEDS: TAMSULOSIN 0.4 MG CAP.SR.24H PO SCH (21:12)
[2021-11-12] MEDS: DONEPEZIL 5 MG TABLET PO SCH (21:12)
[2021-11-12] MEDS: TRAZODONE 50 MG TABLET PO SCH (21:12)
[2021-11-12] MEDS: ZOLPIDEM TARTRATE 5 MG TABLET PO PRN (21:14)
--- NOTE | 2021-11-12 21:15 | NUR ---
GPS RN NOTES: AMBIEN 5MG 1TAB GIVEN PO AT 2113 FOR SLEEP D/T INSOMNIA. WILL CONTINUE TO .
[2021-11-13 05:53] LABS: BASOPHILS % (AUTO) 0.5 % (0.0-2.0); EOSINOPHILS % (AUTO) 2.9 % (0.0-6.0); HEMATOCRIT 29 % (39-51); HEMOGLOBIN 9.4 g/dL (13.5-17.5); LYMPHOCYTES # (AUTO) 1.2 K/uL (0.8-4.8); LYMPHOCYTES % (AUTO) 23.4 % (20.0-44.0); MEAN CORPUSCULAR HGB CONC 33 g/dl (31.0-36.0); MEAN CORPUSCULAR VOLUME 79 fL (80-96); MONOCYTES % (AUTO) 18.5 % (2.0-12.0); NEUTROPHILS # (AUTO) 2.9 K/uL (1.8-8.9); NEUTROPHILS % (AUTO) 54.7 % (43.0-81.0); PLATELET COUNT (AUTO) 205 K/uL (150-450); RED BLOOD CELL COUNT(AUTO) 3.64 MIL/uL (4.5-6.0); WHITE BLOOD COUNT (AUTO) 5.3 K/uL (4.3-11.0)
[2021-11-13 06:23] LABS: CALCIUM, SERUM 8.1 mg/dL (8.5-10.1); CREATININE 0.7 mg/dL (0.6-1.3); MAGNESIUM 2.1 mg/dL (1.8-2.4); PHOSPHORUS 3.7 mg/dL (2.5-4.9); POTASSIUM 4.2 mmol/L (3.5-5.1)
--- NOTE | 2021-11-13 06:49 | NUR ---
GPS RN CLOSING NOTES: PATIENT IS CURRENTLY SLEEPING IN BED. PATIENT SLEPT 7HRS THIS SHIFT. WEEKLY SKIN ASSESSMENT DONE, PICTURES TAKEN AND PLACED IN PATIENT CHART. PATIENT CLEANED AND Z-GUARD APPLIED TO SACRAL AREA FOR PROTECTION. ALL PATIENT CARE NEEDS HAVE BEEN MET ANTICIPATED. WILL CONTINUE TO MONITOR Q15 MINS AND ENDORSE TO AM SHIFT.
[2021-11-13] MEDS: ALBUTEROL FS 2.5 MG/0.5 ML VIAL.NEB NEB SCH ×3 (07:30→21:02)
[2021-11-13 07:50] LABS: EOSINOPHILS % (MANUAL) 1 % (0-4); LYMPHOCYTES % (MANUAL) 28 % (16-48); MONOCYTES % (MANUAL) 19 % (0-11.0); NEUTROPHILS % (MANUAL) 52 (42-76)
[2021-11-13 08:00] VITALS: BP 148/69
[2021-11-13] MEDS: PROPRANOLOL HCL 10 MG TABLET PO SCH ×2 (08:31→17:47)
[2021-11-13] MEDS: GABAPENTIN 100 MG CAPSULE PO SCH ×4 (08:31→21:49)
[2021-11-13] MEDS: risperiDONE 1 MG TABLET PO SCH ×2 (08:31→17:47)
[2021-11-13] MEDS: BENZTROPINE MESYLATE (1 MG) 1 MG TABLET PO SCH ×2 (08:31→17:48)
[2021-11-13] MEDS: SODIUM CHLORIDE 1000 MG TABLET PO SCH (08:32)
--- NOTE | 2021-11-13 10:25 | NUR ---
Court Notifications: AMILCAR contacted pt's sister Ann ([phone]) and left a voicemail of 1140 hearing.
--- NOTE | 2021-11-13 10:26 | NUR ---
Court Hearing: Patient's court hearing for 1390 was today and it was upheld for GD.
--- NOTE | 2021-11-13 12:49 | NUR ---
AMILCAR Family Contact: SW received a call from pt's sister Erica ([phone]) who left a voicemail. SW contacted back and left a voicemail. SW contacted pt's other sister Ann ([phone]) and discussed pt's current status.
[2021-11-13 16:00] VITALS: BP 135/60
[2021-11-13] MEDS: FERROUS SULFATE (325 MG) 325 MG/TAB TABLET PO SCH (17:47)
[2021-11-13] MEDS: DOCUSATE SODIUM 100 MG CAPSULE PO SCH (17:48)
--- NOTE | 2021-11-13 18:51 | NUR ---
NURSE NOTE: PT IS CALM AND COOPERATIVE WITH CARE, MED COMPLIANT. MODERATE ASSIST WITH ADL'S AND AMBULATIONS. DID NOT REQUIRE PRN BREATHING TREATMENT. ALL NEEDS ATTENDED AND ANTICIPATED. WILL CONT. TO MONITOR FOR SAFETY AND BEHAVIOR. WILL ENDORSE TO INCOMING SHIFT FOR CONTINUITY OF CARE.
[2021-11-13 19:56] VITALS: BP 125/81
[2021-11-13] MEDS: TAMSULOSIN 0.4 MG CAP.SR.24H PO SCH (21:49)
[2021-11-13] MEDS: TRAZODONE 50 MG TABLET PO SCH (21:50)
[2021-11-13] MEDS: DONEPEZIL 5 MG TABLET PO SCH (21:50)
[2021-11-14 08:00] VITALS: BP 138/63
[2021-11-14] MEDS: risperiDONE 1 MG TABLET PO SCH ×2 (08:18→18:01)
[2021-11-14] MEDS: SODIUM CHLORIDE 1000 MG TABLET PO SCH ×3 (08:19→08:25)
[2021-11-14] MEDS: PROPRANOLOL HCL 10 MG TABLET PO SCH ×2 (08:22→18:01)
[2021-11-14] MEDS: BENZTROPINE MESYLATE (1 MG) 1 MG TABLET PO SCH ×2 (08:23→18:00)
[2021-11-14] MEDS: GABAPENTIN 100 MG CAPSULE PO SCH ×4 (08:24→21:17)
--- NOTE | 2021-11-14 08:26 | NUR ---
RN NOTES RECEIVED PT IN BED ASLEEP, EASY TO AROUSE, GAVE THE SODIUM CHLORIDE PO MED PER MD ORDER , NOT GIVEN TWO TIMES - DELETED THE RECORDED SECOND DOSE ERROR ON eMAR AND NOTED ONLY ONE ORDER OF NA CHL GIVEN PO AND ONLY ONE PULLED FROM PYXIS, NO ASPIRATION NOTED AND NO C/O PAIN AT THIS TIME, BED LOW TO FLOOR , WHEELS LOCKED, ALL NEEDS MET IN A TIMELY MANNER, WILL CONTINUE TO MONITOR CLOSELY FOR ALL NEEDS & FOR SAFETY REQUIREMENTS TO BE MET.
[2021-11-14] MEDS: ALBUTEROL FS 2.5 MG/0.5 ML VIAL.NEB NEB SCH ×2 (09:54→20:41)
[2021-11-14 16:00] VITALS: BP 124/61
[2021-11-14] MEDS: FERROUS SULFATE (325 MG) 325 MG/TAB TABLET PO SCH (18:00)
[2021-11-14] MEDS: DOCUSATE SODIUM 100 MG CAPSULE PO SCH (18:00)
[2021-11-14 20:18] VITALS: BP 132/59
[2021-11-14] MEDS: TAMSULOSIN 0.4 MG CAP.SR.24H PO SCH (21:17)
[2021-11-14] MEDS: DONEPEZIL 5 MG TABLET PO SCH (21:17)
[2021-11-14] MEDS: TRAZODONE 50 MG TABLET PO SCH (21:18)
[2021-11-14] MEDS: ZOLPIDEM TARTRATE 5 MG TABLET PO PRN (22:52)
--- NOTE | 2021-11-14 22:53 | NUR ---
Pt c/o insomnia. Least restrictive measures ineffective. Ambien 5 mg 1 tab po prn given as ordered. Will continue to monitor.
--- NOTE | 2021-11-15 00:05 | NUR ---
Post 1 hr [place]ien effective. Pt asleep in bed easy to arouse. Frequent visual check done for safety. Will continue to monitor. Will endorse to next shift.
[2021-11-15 08:00] VITALS: BP 141/66
[2021-11-15] MEDS: PROPRANOLOL HCL 10 MG TABLET PO SCH ×2 (08:15→16:16)
[2021-11-15] MEDS: BENZTROPINE MESYLATE (1 MG) 1 MG TABLET PO SCH ×2 (08:16→16:16)
[2021-11-15] MEDS: risperiDONE 1 MG TABLET PO SCH ×2 (08:16→16:16)
[2021-11-15] MEDS: GABAPENTIN 100 MG CAPSULE PO SCH ×4 (08:16→20:18)
[2021-11-15] MEDS: SODIUM CHLORIDE 1000 MG TABLET PO SCH (08:17)
--- NOTE | 2021-11-15 09:50 | NUR ---
RN-CO: PATIENT HAS BLUNTED AFFECT, CALM AND COOPERATIVE. NO S/S OF PAIN AND DISCOMFORTS. ALERT TO NAME ONLY OTHERWISE CONFUSED. I WILL CONTINUE TO MONITOR AND ANTICIPATE NEEDS.
[2021-11-15] MEDS: ALBUTEROL FS 2.5 MG/0.5 ML VIAL.NEB NEB SCH ×2 (10:00→21:13)
--- NOTE | 2021-11-15 14:23 | NUR ---
AMILCAR Note: AMILCAR received a call from law office of [place] ([phone]) who stated that the office needs to serve pt with conservatorship and stated that the court hearing is on November 23.
[2021-11-15 16:00] VITALS: BP 124/53
[2021-11-15] MEDS: FERROUS SULFATE (325 MG) 325 MG/TAB TABLET PO SCH (17:01)
[2021-11-15] MEDS: DOCUSATE SODIUM 100 MG CAPSULE PO SCH (17:01)
[2021-11-15 20:00] VITALS: BP 117/54
[2021-11-15] MEDS: DONEPEZIL 5 MG TABLET PO SCH (21:03)
[2021-11-15] MEDS: TAMSULOSIN 0.4 MG CAP.SR.24H PO SCH (21:04)
[2021-11-15] MEDS: TRAZODONE 50 MG TABLET PO SCH (21:04)
[2021-11-16 08:00] VITALS: BP 143/81
[2021-11-16] MEDS: BENZTROPINE MESYLATE (1 MG) 1 MG TABLET PO SCH ×2 (08:13→16:22)
[2021-11-16] MEDS: SODIUM CHLORIDE 1000 MG TABLET PO SCH (08:13)
[2021-11-16] MEDS: risperiDONE 1 MG TABLET PO SCH ×2 (08:13→16:22)
[2021-11-16] MEDS: GABAPENTIN 100 MG CAPSULE PO SCH ×4 (08:14→21:16)
[2021-11-16] MEDS: PROPRANOLOL HCL 10 MG TABLET PO SCH ×2 (08:14→16:23)
[2021-11-16] MEDS: ALBUTEROL FS 2.5 MG/0.5 ML VIAL.NEB NEB SCH ×2 (08:56→20:44)
--- NOTE | 2021-11-16 11:30 | NUR ---
RN Notes: Received pt. in the caro chair in the hallway. Ate 100% for breakfast with staff assistance and due meds given. Morning care rendered and pt. is cooperative with care and treatment. Pt. is confused and disoriented and was reoriented to person, place, day, date and situation. No distress and no agitation noted. Will continue to monitor for safety.
[2021-11-16 16:00] VITALS: BP 138/76
[2021-11-16] MEDS: DOCUSATE SODIUM 100 MG CAPSULE PO SCH (17:26)
[2021-11-16] MEDS: FERROUS SULFATE (325 MG) 325 MG/TAB TABLET PO SCH (17:26)
[2021-11-16 20:00] VITALS: BP 115/69
--- NOTE | 2021-11-16 20:21 | NUR ---
RN NOTES: RECEIVED PATIENT IN THE DINING ROOM WATCHING TV. NO S/SX OF ACUTE DISTRESS NOTED.EASILY AGITAED, PARANOID,CONFUSED, DISORIENTED, DISORGANIZED.ENCOURAGED TO VERVALIZED ANY FEELING OR CONCERN. SAFETY PRECAUTIONS MAINTAINED. WILL CONTINUE TO MONITOR Q15 MIN ROUNDS FOR SAFETY AND BEHAVIOR.
[2021-11-16 20:30] VITALS: BP 115/65
[2021-11-16] MEDS: TAMSULOSIN 0.4 MG CAP.SR.24H PO SCH (21:16)
[2021-11-16] MEDS: DONEPEZIL 5 MG TABLET PO SCH (21:16)
[2021-11-16] MEDS: TRAZODONE 50 MG TABLET PO SCH (21:16)
[2021-11-17] MEDS: ALBUTEROL FS 2.5 MG/0.5 ML VIAL.NEB NEB SCH (07:30)
--- NOTE | 2021-11-17 07:52 | NUR ---
RT NOTE Pt refused med was eating breakfast. Pt is currently stable showing no signs of s.o.b.
[2021-11-17 08:00] VITALS: BP 133/70
--- NOTE | 2021-11-17 08:12 | NUR ---
SW Discharge Note: Patient will be discharged to [facility] [address] [facility] [facility] [address], [place] [address] ([phone]). Please arrange ambulance transportation at 2PM. Spoke with Ileana, Admin Coordinator at the facility who states they are ready to accept the patient today. Patients sister Erica ([phone]) is aware and agreeable. Patient is alert and oriented x1, is unable to plan for self-care at this time, however, is willing to accept care at [facility]. Patient denies any suicidal or homicidal ideation. Patient will follow-up at the facility with Dr. Matthews (psychiatrist) [address] [address]; ([phone]) and ([facility] [employer]) Dr. Fletcher [address], [place] [address]; ([phone]). Patient presents with euthymic mood and congruent affect.
[2021-11-17] MEDS: BENZTROPINE MESYLATE (1 MG) 1 MG TABLET PO SCH (08:15)
[2021-11-17] MEDS: risperiDONE 1 MG TABLET PO SCH (08:15)
[2021-11-17 08:16] VITALS: BP 133/70
[2021-11-17] MEDS: SODIUM CHLORIDE 1000 MG TABLET PO SCH (08:16)
[2021-11-17] MEDS: GABAPENTIN 100 MG CAPSULE PO SCH ×2 (08:16→12:40)
[2021-11-17] MEDS: PROPRANOLOL HCL 10 MG TABLET PO SCH (08:16)
--- NOTE | 2021-11-17 09:35 | NUR ---
Dr. Matthews gave an order to D/C hold and D/C to [facility] and to follow up with psych and medical doctors. Dr. Matthews gave an order to continue same meds including prn. Dr. Fletcher made aware of the discharge and reconciled meds to continue in the facility. Pt. without distress, denies suicidal and homicidal. Belongings ready and discharge papers ready.
--- NOTE | 2021-11-17 09:45 | NUR ---
Conservatorship: Pt got served with probate conservatorship by Wilfr[employer] ([phone]). AMILCAR faxed documents to admin Ileana from [employer] ([phone]) and notified of this. Addendum: 11/17/21 at 0948 by AMILCAR FORTE AMILCAR placed a copy of it in the chart.
--- NOTE | 2021-11-17 12:38 | NUR ---
Report given to Sophie luna the facility Addendum: 11/17/21 at 1339 by ANICETO VUONG RN Picture taken for the skin issue.
--- NOTE | 2021-11-17 13:35 | NUR ---
Pt. left the unit via ambulance with belongings and transported via a gurney. Left without distress, v/s taken: BP 153/77, CT 70, RR 18, temp 98.2 and oxygen sat 96%.
== END 2021-11-17 13:35 | DRG 885 ==
LOC: ER 11:17 → GPS 15:49
PROVIDERS: ADMIT Psychiatry & Neurology Psychiatry; ATTEND Internal Medicine
DX: F20.0 Paranoid schizophrenia (principal); E22.2 Syndrome of inappropriate secretion of antidiuretic hormone; F29 Unspecified psychosis not due to a substance or known physiological condition; F41.9 Anxiety disorder, unspecified; G20 Parkinson's disease; G30.9 Alzheimer's disease, unspecified; F02.80 Dementia in other diseases classified elsewhere, unspecified severity, without behavioral disturbance, psychotic disturbance, mood disturbance, and anxiety; F32.9 Major depressive disorder, single episode, unspecified; I12.9 Hypertensive chronic kidney disease with stage 1 through stage 4 chronic kidney disease, or unspecified chronic kidney disease; N40.0 Benign prostatic hyperplasia without lower urinary tract symptoms; Z79.899 Other long term (current) drug therapy; Z91.81 History of falling; D63.8 Anemia in other chronic diseases classified elsewhere; D50.9 Iron deficiency anemia, unspecified; H26.9 Unspecified cataract; H52.4 Presbyopia; Z79.51 Long term (current) use of inhaled steroids; R53.1 Weakness; Z73.6 Limitation of activities due to disability; R27.8 Other lack of coordination
CPT/HCPCS: 36415; 70450-TC; 71045-TC; 80048-TC; 80053-TC; 80061-TC; 80076-TC; 82140-TC; 82962-TC; 83735-TC; 83880; 84100-TC; 84443-TC; 84484-TC; 85025-TC; 87081-TC; 94760-TC; 94799-TC; C9803

== ENCOUNTER 2021-11-28 11:39 | Inpatient (IN) | payer MEDICARE, OTHER ==
[~2021-11-28] VITALS: Ht 170.2 cm; Wt 63.5 kg
[~2021-11-28 11:39] MED LIST changes: -ACET1OOV6 NEB; +ALBU8.5H8 IH; -ALBUT2 NEB; +AMIN30LI2 PO; +BENZ1TAB7 PO; -IPRA0.2S9 NEB; +IPRA12.9 IH; +RISP0.2515 PO; -RISP2TAB85 PO
--- NOTE | 2021-11-28 11:55 | NUR ---
urine specimen taken sent to lab.
--- NOTE | 2021-11-28 12:00 | NUR ---
ariel, from [facility], c/o sob 90% on room air and put him on 5lpm 93%. kept comfortable, will continue to monitor accordingly.
--- NOTE | 2021-11-28 12:37 | NUR ---
covid swab collected and sent to lab.
[2021-11-28 12:49] LABS: BASOPHILS % (AUTO) 0.2 % (0.0-2.0); EOSINOPHILS % (AUTO) 2.9 % (0.0-6.0); HEMATOCRIT 29 % (39-51); HEMOGLOBIN 9.2 g/dL (13.5-17.5); LYMPHOCYTES # (AUTO) 0.6 K/uL (0.8-4.8); LYMPHOCYTES % (AUTO) 22.4 % (20.0-44.0); MEAN CORPUSCULAR HGB CONC 32 g/dl (31.0-36.0); MEAN CORPUSCULAR VOLUME 82 fL (80-96); MONOCYTES # (AUTO) 0.6 K/uL (0.1-1.30); MONOCYTES % (AUTO) 20.6 % (2.0-12.0); NEUTROPHILS # (AUTO) 1.6 K/uL (1.8-8.9); NEUTROPHILS % (AUTO) 53.9 % (43.0-81.0); PLATELET COUNT (AUTO) 222 K/uL (150-450); RED BLOOD CELL COUNT(AUTO) 3.51 MIL/uL (4.5-6.0); WHITE BLOOD COUNT (AUTO) 2.9 K/uL (4.3-11.0)
[2021-11-28 13:00] LABS: CALCIUM, SERUM 8.7 mg/dL (8.5-10.1); CREATININE 0.9 mg/dL (0.6-1.3)
[2021-11-28 13:13] LABS: ALBUMIN 3.1 g/dL (3.4-5.0)
[2021-11-28] MEDS ORDERED: ZOLP5TAB8 PO (13:13)
[2021-11-28] MEDS ORDERED: LORA-259 PO (13:13)
--- NOTE | 2021-11-28 13:45 | NUR ---
unable to urinate. distended bladder
--- NOTE | 2021-11-28 14:00 | NUR ---
inserted billy catherter
[2021-11-28 14:25] LABS: BILIRUBIN,TOTAL 0.2 mg/dL (0.2-1.0); TOTAL PROTEIN, SERUM 6.7 g/dL (6.4-8.2)
[2021-11-28] MEDS ORDERED: LORAZEPAM INJ 2 MG/ML VIAL IV ONE (15:00)
[2021-11-28] MEDS ORDERED: DOXYCYCLINE 100 MG in IV D5W 100 ML IV SCH (15:00)
[2021-11-28] MEDS ORDERED: CEFTRIAXONE 1 G in IV D5W 50 ML IV ONE (15:00)
[2021-11-28] MEDS ORDERED: CEFTRIAXONE 1GM BAG (ER ONLY) 50 ML IV ONE (15:00)
[2021-11-28] MEDS ORDERED: LORAZEPAM INJ 2 MG/ML VIAL ONE (15:05)
[2021-11-28 15:18] LABS: BILIRUBIN,URINE NEGATIVE (NEGATIVE); COLOR,URINE YELLOW (YELLOW); LEUKOCYTE ESTERASE ,URINE NEGATIVE (NEGATIVE); NITRITE, URINE NEGATIVE (NEGATIVE); PROTEIN,URINE NEGATIVE (NEGATIVE); UGLUCOSE NEGATIVE (NEGATIVE); UROBILINOGEN,URINE 0.2 EU/dL (0.2)
--- NOTE | 2021-11-28 15:26 | NUR ---
medicated as ordered
--- NOTE | 2021-11-28 15:27 | NUR ---
no adverse reaction noted
[2021-11-28] MEDS ORDERED: ALBUTEROL FS 2.5 MG/0.5 ML VIAL.NEB NEB PRN (16:30)
[2021-11-28] MEDS ORDERED: MAG HYDROX/AL HYDROX/SIMETH 30 ML UDC PO PRN ×2 (16:30→17:00)
[2021-11-28] MEDS ORDERED: BISACODYL SUPP (10 MG) 10 MG/SUPP.RECT SUPP.RECT RC PRN (16:30)
[2021-11-28] MEDS ORDERED: NA PHOS,M-B/NA PHOS,DI-BA 1 EA ENEMA RC PRN (16:30)
[2021-11-28] MEDS ORDERED: ACETAMINOPHEN 325 MG TABLET PO PRN ×2 (16:30→17:00)
--- NOTE | 2021-11-28 16:52 | NUR ---
room 323-1
--- NOTE | 2021-11-28 16:57 | NUR ---
report given to Larry to continue care.
[2021-11-28] MEDS ORDERED: MAGNESIUM HYDROXIDE 30 ML UDC PO PRN ×2 (17:00→22:00)
[2021-11-28] MEDS ORDERED: Z GUARD REMEDY 4 OZ OINT TP PRN (17:00)
[2021-11-28] MEDS ORDERED: risperiDONE 0.25 MG TABLET PO SCH (17:00)
[2021-11-28] MEDS: risperiDONE 1 MG TABLET PO SCH (17:00)
[2021-11-28] MEDS: PROPRANOLOL HCL 10 MG TABLET PO SCH (17:00)
[2021-11-28] MEDS: GABAPENTIN 100 MG CAPSULE PO SCH ×2 (17:00→21:24)
[2021-11-28] MEDS ORDERED: ONDANSETRON HCL/PF 4 MG/2 ML VIAL IVP PRN (17:00)
[2021-11-28] MEDS: BENZTROPINE MESYLATE (1 MG) 1 MG TABLET PO SCH (17:00)
[2021-11-28] MEDS: ENOXAPARIN SODIUM 40 MG/0.4 ML DISP.SYRIN SQ SCH (17:00)
--- NOTE | 2021-11-28 17:25 | NUR ---
wheeled pt via wheelchair in no distress rn assigned at bedside to continue care.
[2021-11-28] MEDS: FERROUS SULFATE (325 MG) 325 MG/TAB TABLET PO SCH (18:00)
--- NOTE | 2021-11-28 18:02 | NUR ---
RN NOTES RECEIVED PATIENT VIA WHEELCHAIR, PATIENT IS AOX2, CONFUSED, ANXIOUS, AMBULATORY, PATIENT WENT TO THE RESTROOM AND TOOK HIS TIME INSIDE, PATIENT HAS NO IV WHEN TRANSFERRED HERE. REPORTED TO THE CHARGE NURSE YUMIKO WHO CALLED THE ER TO REPORT. PATIENT REFUSED TELE MONITORING, REFUSED TO BE ASSESSED, REFUSED TO HAVE PICTURES TAKEN. WILL ENDORSE TO THE BUILD AND DEPLOYMENT ENGINEER.
--- NOTE | 2021-11-28 18:15 | NUR ---
RN NOTES PATIENT WILL NEED TO HAVE A SITTER, WILL BE TRANSFERRED TO [facility]. PATIENT REFUSED ANY TREATMENT INCLUDING IV INSERTION, TELEMETRY, ASSESSMENTS, CHARGE NURSE IS AWARE. WILL CONTINUE TO MONITOR PATIENT FOR SAFETY.
[2021-11-28] MEDS: LORAZEPAM 1 MG TABLET PO PRN (18:45)
--- NOTE | 2021-11-28 18:45 | NUR ---
RN NOTES PATIENT GIVEN ATIVAN 1 MG ORALLY. PATIENT IS WITH 1-ON-1 SITTER.
[2021-11-28 19:56] LABS: BASOPHILS % (MANUAL) 0 % (0.0-2.0); EOSINOPHILS % (MANUAL) 0 % (0-4)
[2021-11-28 19:58] LABS: LYMPHOCYTES % (MANUAL) 13 % (16-48); MONOCYTES % (MANUAL) 15 % (0-11.0); NEUTROPHILS % (MANUAL) 72 (42-76)
[2021-11-28 20:00] VITALS: BP 112/79
[2021-11-28] MEDS: ZOSYN IVPB 3.375 G in IV D5W 50ml IV SCH (20:22)
[2021-11-28] MEDS: TAMSULOSIN 0.4 MG CAP.SR.24H PO SCH (21:24)
[2021-11-28] MEDS: DONEPEZIL 5 MG TABLET PO SCH (21:24)
[2021-11-28] MEDS ORDERED: ZOLPIDEM TARTRATE 5 MG TABLET PO PRN (22:00)
[2021-11-29] MEDS: ZOSYN IVPB 3.375 G in IV D5W 50ml IV SCH ×2 (00:10→06:00)
--- NOTE | 2021-11-29 06:16 | NUR ---
RN NOTES PATIENT WITH SITTER AT BEDSIDE PATIENT IS AOX2, CONFUSED, ANXIOUS, AMBULATORY, PATIENT PULLED OUT IV ACCESS ON THE L HAND NEW IV ACCESS ESTABLISHED ON THE R WRIST 20G TOLERATED WELL WRAPPED WITH KERLIX. PT ON TELE MONITOR EARLIER READING SR 70S PT CONTINUOS TO TAKE OFF TELE MONITOR ALL NIGHT DESPITE CONSTANT REMINDERS. REFUSED TO BE ASSESSED, REFUSED TO HAVE PICTURES TAKEN. PT AT THIS TIME ON CHAIR SO SOB ON ROOM AIR TOLERATING WELL.
--- NOTE | 2021-11-29 06:31 | NUR ---
RN NOTE PT COMPLAINING OF ABDOMINAL PAIN AND NOT ABLE TO URINATE BLADDER SCANNED THE PT NOTED WITH > 700 CC ON BLADDER SCAN CONTACTED ZIPPER CUTTER FOR POSSIBLE WELLINGTON OR STRAIGHT CATHETERIZATION AWAITING RESPONSE.
--- NOTE | 2021-11-29 07:30 | NUR ---
RN NOTES RECEIVED PATIENT IN BED AWAKE. PATIENT IS A/OX2, WITH EPISODES OF CONFUSION. REORIENT THE PATIENT. PATIENT HAD URINE RETENTION. THE PREVIOUS SHIFT DID STRAIGHT CATHETER. URINE OUTPUT NOTED. IV ACCESS ON THE RIGHT WRIST IVY 20 INTACT RUNNING NS AT 75 ML/HR. REFUSED TELE MONITOR. ALL SAFETY MEASURES IN PLACE. BED LOCKED IN THE LOWEST POSITION. CALL LIGHT AND TABLE IN EASY REACH. BED ALARM ON. WILL CONTINUE TO MONITOR CLOSELY.
[2021-11-29 07:43] LABS: BASOPHILS % (AUTO) 0.2 % (0.0-2.0); EOSINOPHILS % (AUTO) 2.8 % (0.0-6.0); HEMATOCRIT 28 % (39-51); HEMOGLOBIN 9.1 g/dL (13.5-17.5); LYMPHOCYTES # (AUTO) 0.9 K/uL (0.8-4.8); LYMPHOCYTES % (AUTO) 21.3 % (20.0-44.0); MEAN CORPUSCULAR HGB CONC 33 g/dl (31.0-36.0); MEAN CORPUSCULAR VOLUME 81 fL (80-96); MONOCYTES # (AUTO) 0.8 K/uL (0.1-1.30); MONOCYTES % (AUTO) 17.4 % (2.0-12.0); NEUTROPHILS # (AUTO) 2.6 K/uL (1.8-8.9); NEUTROPHILS % (AUTO) 58.3 % (43.0-81.0); PLATELET COUNT (AUTO) 232 K/uL (150-450); RED BLOOD CELL COUNT(AUTO) 3.46 MIL/uL (4.5-6.0); WHITE BLOOD COUNT (AUTO) 4.4 K/uL (4.3-11.0)
[2021-11-29 08:00] VITALS: BP 117/58
[2021-11-29 08:12] LABS: CALCIUM, SERUM 8.6 mg/dL (8.5-10.1); CARBON DIOXIDE 27 mmol/L (21-32); CHLORIDE 102 mmol/L (98-107); CREATININE 0.9 mg/dL (0.6-1.3); GLUCOSE 88 mg/dL (74-106); MAGNESIUM 1.9 mg/dL (1.8-2.4); PHOSPHORUS 3.8 mg/dL (2.5-4.9); POTASSIUM 3.5 mmol/L (3.5-5.1); SODIUM SERUM 140 mmol/L (136-145); UREA NITROGEN, BLOOD 22 mg/dL (7-18)
[2021-11-29] MEDS: GABAPENTIN 100 MG CAPSULE PO SCH ×4 (08:47→21:49)
[2021-11-29] MEDS: SODIUM CHLORIDE 1000 MG TABLET PO SCH (08:47)
[2021-11-29] MEDS: risperiDONE 1 MG TABLET PO SCH ×3 (08:47→16:17)
[2021-11-29] MEDS: DOCUSATE SODIUM 100 MG CAPSULE PO SCH (08:47)
[2021-11-29] MEDS: PROPRANOLOL HCL 10 MG TABLET PO SCH ×2 (08:48→16:18)
[2021-11-29] MEDS: BENZTROPINE MESYLATE (1 MG) 1 MG TABLET PO SCH ×2 (08:48→16:17)
[2021-11-29] MEDS: PIPERACILLIN /TAZOBACTAM 3.375 G in IV D5W 100 ML IV SCH ×2 (12:45→21:49)
[2021-11-29] MEDS: LORAZEPAM 1 MG TABLET PO PRN ×2 (13:20→23:35)
[2021-11-29] MEDS: ENOXAPARIN SODIUM 40 MG/0.4 ML DISP.SYRIN SQ SCH (16:19)
[2021-11-29 17:00] VITALS: BP 158/65
[2021-11-29] MEDS: FERROUS SULFATE (325 MG) 325 MG/TAB TABLET PO SCH (17:09)
--- NOTE | 2021-11-29 17:21 | NUR ---
RN NOTES HELD LOVENOX 40 MG FOR EPISODES OF BLEEDING OF WELLINGTON CATHETER INSERTION. CHARGE NURSE JACOBO AWARE OF IT.
--- NOTE | 2021-11-29 18:09 | NUR ---
RN NOTES ALL THE INTERVENTIONS SUCH ASSISTING PATIENT TO BATHROOM, FEEDING, HYDRATING, CLOSE MONITORING, ALL COMFORT MEASURES, REORIENTATION AND MEDICATION DONE. PATIENT STILL RESTLESS . GOT ORDER FOR MEDICAL SOFT RESTRAINS FOR THE PATIENT.
--- NOTE | 2021-11-29 18:54 | NUR ---
BUS COMPANY MANAGER CLOSING NOTES PATIENT IN BED AWAKE. PATIENT IS A/OX2, WITH EPISODES OF CONFUSION. REORIENT THE PATIENT CONSTANTLY. PATIENT HAD URINE RETENTION. IV ACCESS ON THE RIGHT WRIST IVY 20 INTACT RUNNING NS AT 75 ML/HR. ON TELE MONITOR READING SR 75. ALL DUE MEDS GIVEN ORDERED. SOFT RESTRAINS ON FOR SAFETY. SKIN CHECKS AND CIRCULATION DONE . WELLINGTON CATHETER IN PLACE. PATIENT WAS TRYING TO PULL IT OUT. ALL SAFETY MEASURES IN PLACE. BED LOCKED IN THE LOWEST POSITION. CALL LIGHT AND TABLE IN EASY REACH. BED ALARM ON. WILL ENDORSE FOR JUAN
--- NOTE | 2021-11-29 19:50 | NUR ---
FINANCIAL MANAGEMENT OPENING NOTE: PATIENT IN BED AWAKE. PATIENT IS A/O X 1, WITH EPISODES OF RESTLESSNESS, AGITATION AND CONFUSION. PATIENT NEEDS CONSTANT REORIENTATION WITH COMMANDS. PATIENT KEEPS TUGGING AT HIS WELLINGTON CATHETER AND DOES NOT SEEM TO UNDERSTAND WHY IT IS THERE. IV ACCESS TO THE RIGHT WRIST # 20G, PATENT AND INTACT RUNNING NS AT 75 ML/HR. TELE MONITOR READS SR 68. SOFT RESTRAINS ON BILATERAL WRISTS FOR SAFETY. SAFETY MEASURES IN PLACE: BED LOCKED AND IN THE LOWEST POSITION. BED ALARM ON. SIDE RAILS UP X 2. CALL LIGHT AND TABLE WITHIN EASY REACH. WILL CONTINUE TO MONITOR.
[2021-11-29] MEDS: TAMSULOSIN 0.4 MG CAP.SR.24H PO SCH (21:49)
[2021-11-29] MEDS: IV NS 0.9% 1,000 ML IV PRN ×2 (21:56→21:58)
[2021-11-29] MEDS: DONEPEZIL 5 MG TABLET PO SCH (22:12)
[2021-11-29 22:22] LABS: EOSINOPHILS % (MANUAL) 5 % (0-4); LYMPHOCYTES % (MANUAL) 28 % (16-48); MONOCYTES % (MANUAL) 5 % (0-11.0); NEUTROPHILS % (MANUAL) 62 (42-76)
[2021-11-30] MEDS: PIPERACILLIN /TAZOBACTAM 3.375 G in IV D5W 100 ML IV SCH ×3 (05:01→20:55)
[2021-11-30 07:00] VITALS: BP 135/73
[2021-11-30 07:01] LABS: BASOPHILS % (AUTO) 0.2 % (0.0-2.0); EOSINOPHILS % (AUTO) 1.8 % (0.0-6.0); HEMATOCRIT 26 % (39-51); HEMOGLOBIN 8.5 g/dL (13.5-17.5); LYMPHOCYTES # (AUTO) 0.9 K/uL (0.8-4.8); LYMPHOCYTES % (AUTO) 13.6 % (20.0-44.0); MEAN CORPUSCULAR HGB CONC 33 g/dl (31.0-36.0); MEAN CORPUSCULAR VOLUME 80 fL (80-96); MONOCYTES # (AUTO) 1.1 K/uL (0.1-1.30); MONOCYTES % (AUTO) 17.3 % (2.0-12.0); NEUTROPHILS # (AUTO) 4.3 K/uL (1.8-8.9); NEUTROPHILS % (AUTO) 67.1 % (43.0-81.0); PLATELET COUNT (AUTO) 207 K/uL (150-450); RED BLOOD CELL COUNT(AUTO) 3.24 MIL/uL (4.5-6.0); WHITE BLOOD COUNT (AUTO) 6.4 K/uL (4.3-11.0)
[2021-11-30 07:14] LABS: CALCIUM, SERUM 8.1 mg/dL (8.5-10.1); CREATININE 0.8 mg/dL (0.6-1.3); POTASSIUM 3.3 mmol/L (3.5-5.1)
--- NOTE | 2021-11-30 07:45 | NUR ---
LAWN SPECIALIST NOTES: RECEIVED PATIENT IN BED ASLEEP. A/O X 1, WITH EPISODES OF RESTLESSNESS, AGITATION. IV ACCESS TO THE RIGHT WRIST # 20G, PATENT AND INTACT RUNNING NS AT 75 ML/HR. TELE MONITOR READS SR 63 WITH BBB. WELLINGTON CATH DRAINING CLEAR YELLOW URINE, BLOOD TINGED D/T PT PULLING PER PM RN. PT WITH SOFT RESTRAINS ON BILATERAL WRISTS FOR SAFETY PURPOSES, WILL ASSESS ORDERED. SAFETY MEASURES MAINTAINED: BED LOCKED AND IN THE LOWEST POSITION. BED ALARM ON. SIDE RAILS UP X 2. CALL LIGHT AND TABLE WITHIN EASY REACH. WILL CONTINUE WITH PLAN OF CARE DURING SHIFT.
[2021-11-30] MEDS ORDERED: POTASSIUM CHLORIDE 20 MEQ TAB.PRT.SR PO ONE (08:00)
--- NOTE | 2021-11-30 08:10 | NUR ---
X RAY EQUIPMENT MECHANIC CLOSING NOTE: PATIENT IN BED ASLEEP. A/O X 1, WITH EPISODES OF RESTLESSNESS, AGITATION AND CONFUSION THE ENTIRE FOUNDER AND CHIEF EXECUTIVE OFFICER. IV ACCESS TO THE RIGHT WRIST # 20G, PATENT AND INTACT RUNNING NS AT 75 ML/HR. TELE MONITOR READS SR 64 WITH BBB. SOFT RESTRAINS ON BILATERAL WRISTS FOR SAFETY PURPOSES. SAFETY MEASURES MAINTAINED: BED LOCKED AND IN THE LOWEST POSITION. BED ALARM ON. SIDE RAILS UP X 2. CALL LIGHT AND TABLE WITHIN EASY REACH. WILL ENDORSE TO NEXT SHIFT FOR JUAN.
[2021-11-30] MEDS: SODIUM CHLORIDE 1000 MG TABLET PO SCH (09:26)
[2021-11-30] MEDS: PROPRANOLOL HCL 10 MG TABLET PO SCH ×2 (09:27→17:15)
[2021-11-30] MEDS: DOCUSATE SODIUM 100 MG CAPSULE PO SCH (09:27)
[2021-11-30] MEDS: risperiDONE 1 MG TABLET PO SCH ×3 (09:27→17:12)
[2021-11-30] MEDS: BENZTROPINE MESYLATE (1 MG) 1 MG TABLET PO SCH ×2 (09:28→17:12)
[2021-11-30] MEDS: GABAPENTIN 100 MG CAPSULE PO SCH ×4 (09:28→20:54)
[2021-11-30 12:00] VITALS: BP 134/66
[2021-11-30 13:14] LABS: BAND % (MANUAL) 1 % (0.0-5.0); EOSINOPHILS % (MANUAL) 3 % (0-4); LYMPHOCYTES % (MANUAL) 8 % (16-48); MONOCYTES % (MANUAL) 11 % (0-11.0); MYELOCYTES % 1 % (0-0); NEUTROPHILS % (MANUAL) 78 (42-76)
[2021-11-30 16:00] VITALS: BP 148/79
[2021-11-30] MEDS: ENOXAPARIN SODIUM 40 MG/0.4 ML DISP.SYRIN SQ SCH ×2 (17:00→17:14)
--- NOTE | 2021-11-30 17:00 | NUR ---
HELD 1700- LOVENOX DUE TO PT CONSTANT PULLING ON URETHRAL CATH WHICH CAUSES BLEEDING, MADE ACQUISITION CONSULTANT AWARE.
[2021-11-30] MEDS: FERROUS SULFATE (325 MG) 325 MG/TAB TABLET PO SCH (17:11)
--- NOTE | 2021-11-30 19:12 | NUR ---
MS AKOSUA NOTES: PATIENT IN BED ASLEEP. A/O X 1, WITH EPISODES OF RESTLESSNESS, AGITATION. IV ACCESS TO THE RIGHT WRIST # 20G, PATENT AND INTACT, SL. TELE MONITOR READS SR 66 WITH BBB. WELLINGTON CATH DRAINING CLEAR YELLOW URINE, BLOOD TINGED D/T PT PULLING. PT WITH SOFT RESTRAINS ON BILATERAL WRISTS FOR SAFETY PURPOSES, WILL ASSESS ORDERED. SAFETY MEASURES MAINTAINED: BED LOCKED AND IN THE LOWEST POSITION. BED ALARM ON. SIDE RAILS UP X 2. CALL LIGHT AND TABLE WITHIN EASY REACH, WILL ENDORSE TO PM SHIFT. Addendum: 11/30/21 at 1926 by SKYE BAZZI RN RN CLOSING NOTES:
--- NOTE | 2021-11-30 19:26 | NUR ---
CARTRIDGE LOADER CLOSING NOTES: PATIENT IN BED ASLEEP. A/O X 1, WITH EPISODES OF RESTLESSNESS, AGITATION. IV ACCESS TO THE RIGHT WRIST # 20G, PATENT AND INTACT, SL. TELE MONITOR READS SR 66 WITH BBB. WELLINGTON CATH DRAINING CLEAR YELLOW URINE, BLOOD TINGED D/T PT PULLING. PT WITH SOFT RESTRAINS ON BILATERAL WRISTS FOR SAFETY PURPOSES, WILL ASSESS ORDERED. SAFETY MEASURES MAINTAINED: BED LOCKED AND IN THE LOWEST POSITION. BED ALARM ON. SIDE RAILS UP X 2. CALL LIGHT AND TABLE WITHIN EASY REACH, WILL ENDORSE TO PM SHIFT.
--- NOTE | 2021-11-30 19:55 | NUR ---
BASEBALL GLOVE STUFFER OPENING NOTE: PATIENT IN BED AWAKE. PATIENT IS A/O X 2, WITH EPISODES OF CONFUSION. IV ACCESS TO THE RIGHT WRIST # 20G, SL. IVF BEING HELD DUE TO POSSIBLE CHF AND FLUID OVERLOAD. ZOSYN ANTIBIOTIC STILL BEING GIVEN ORDERED EVERY 6 HOURS. TELE MONITOR SHOWS SR AT 67 BPM WITH A BUNDLE BRANCH BLOCK. SOFT RESTRAINTS ON BILATERAL WRISTS FOR PROTECTION OF LINES AND CATHETERS. SAFETY MEASURES IN PLACE: BED LOCKED AND IN THE LOWEST POSITION. BED ALARM ON. SIDE RAILS UP X 2. CALL LIGHT AND TABLE WITHIN EASY REACH. WILL CONTINUE TO MONITOR.
[2021-11-30 20:00] VITALS: BP 122/58
[2021-11-30] MEDS: TAMSULOSIN 0.4 MG CAP.SR.24H PO SCH (21:04)
[2021-11-30] MEDS: DONEPEZIL 5 MG TABLET PO SCH (21:04)
[2021-12-01] VITALS: BP 131/73
[2021-12-01 04:00] VITALS: BP 131/57
[2021-12-01] MEDS: PIPERACILLIN /TAZOBACTAM 3.375 G in IV D5W 100 ML IV SCH ×2 (04:34→12:11)
[2021-12-01 06:01] LABS: BASOPHILS % (AUTO) 0.2 % (0.0-2.0); HEMATOCRIT 28 % (39-51); HEMOGLOBIN 9.3 g/dL (13.5-17.5); LYMPHOCYTES # (AUTO) 1.1 K/uL (0.8-4.8); LYMPHOCYTES % (AUTO) 15.3 % (20.0-44.0); MEAN CORPUSCULAR HGB CONC 33 g/dl (31.0-36.0); MEAN CORPUSCULAR VOLUME 80 fL (80-96); MONOCYTES # (AUTO) 0.9 K/uL (0.1-1.30); MONOCYTES % (AUTO) 12.9 % (2.0-12.0); NEUTROPHILS # (AUTO) 4.9 K/uL (1.8-8.9); NEUTROPHILS % (AUTO) 69.6 % (43.0-81.0); PLATELET COUNT (AUTO) 212 K/uL (150-450); RED BLOOD CELL COUNT(AUTO) 3.55 MIL/uL (4.5-6.0)
[2021-12-01 07:00] VITALS: BP 145/70
[2021-12-01 07:06] LABS: CALCIUM, SERUM 8.2 mg/dL (8.5-10.1); CREATININE 0.9 mg/dL (0.6-1.3); POTASSIUM 3.4 mmol/L (3.5-5.1)
--- NOTE | 2021-12-01 07:35 | NUR ---
LABORER SYRUP MACHINE OPENING NOTE: PATIENT RECEIVED AWAKE IN BED PATIENT IS A/O X 2, WITH EPISODES OF CONFUSION. PATIENT ON 2LPM VIA NC SATURATING AT 96%. IV ACCESS TO THE RIGHT WRIST G#20G SL. TELE MONITOR SHOWS SR AT 54 BPM. SOFT RESTRAINTS ON BILATERAL WRISTS PATIENT IS TRYING TO PULL OUT IV AND WELLINGTON CATHETER. SAFETY MEASURES IN PLACE: BED LOCKED AND IN THE LOWEST POSITION. BED ALARM ON. SIDE RAILS UP X 2. CALL LIGHT AND TABLE WITHIN EASY REACH. WILL CONTINUE TO MONITOR.
[2021-12-01 08:00] VITALS: BP 145/70
--- NOTE | 2021-12-01 08:14 | NUR ---
SHAKE FEEDER CLOSING NOTE: PATIENT IN BED ASLEEP. PATIENT IS A/O X 1-2, WITH EPISODES OF CONFUSION. IV ACCESS TO THE RIGHT WRIST # 20G, SL. IVF BEING HELD DUE TO POSSIBLE CHF AND FLUID OVERLOAD. ZOSYN ANTIBIOTIC STILL BEING GIVEN ORDERED EVERY 8 HOURS. TELE MONITOR SHOWS SR AT 61 BPM WITH A BUNDLE BRANCH BLOCK. SOFT RESTRAINTS ON BILATERAL WRISTS FOR PROTECTION OF LINES AND CATHETERS. SAFETY MEASURES MAINTAINED: BED LOCKED AND IN THE LOWEST POSITION. BED ALARM ON. SIDE RAILS UP X 2. CALL LIGHT AND TABLE WITHIN EASY REACH. WILL ENDORSE TO NEXT SHIFT FOR JUAN.
[2021-12-01] MEDS: GABAPENTIN 100 MG CAPSULE PO SCH ×2 (09:19→12:12)
[2021-12-01] MEDS: SODIUM CHLORIDE 1000 MG TABLET PO SCH (09:19)
[2021-12-01] MEDS: PROPRANOLOL HCL 10 MG TABLET PO SCH (09:19)
[2021-12-01] MEDS: BENZTROPINE MESYLATE (1 MG) 1 MG TABLET PO SCH (09:20)
[2021-12-01] MEDS: risperiDONE 1 MG TABLET PO SCH ×2 (09:20→12:12)
[2021-12-01] MEDS: DOCUSATE SODIUM 100 MG CAPSULE PO SCH (09:20)
[2021-12-01] MEDS ORDERED: TAMS-12 PO (10:32)
[2021-12-01] MEDS ORDERED: LEVO500T90 PO (10:33)
[2021-12-01 11:47] LABS: ABG BASE EXCESS -0.9 mmol/L; ABG OXYGEN SATURATION 94.9 % (92.0-98.5); ABG PCO2 33.8 mmHg (35.0-45.0); ABG PH 7.447 (7.350-7.450); ABG PO2 73.6 mmHg (75.0-100.0); AaDO2 35.7 mmHg; COHb 0.7 % (0.5-1.5); MetHb 0.1 % (0.0-1.5); O2Hb 94.1 % (94.0-97.0); SITE, ABG Left Radial; VENT MODE, BG room air
[2021-12-01 12:00] VITALS: BP 146/73
[2021-12-01] MEDS ORDERED: POTASSIUM CHLORIDE 20 MEQ POWDER PACKET PO ONE (12:00)
--- NOTE | 2021-12-01 16:00 | NUR ---
RELAY ASSOCIATE DISCHARGE NOTE PT DISCHARGED TO [facility] IN STABLE CONDITION. PT AOX2, ABLE TO MAKE NEEDS KNOWN. ON 2 LPM VIA NC SATURATING WELL AT 94% WITH NO SOB AND NO RESPIRATORY DISTRESS. VITAL SIGNS TAKEN, STABLE, AND RECORDED. PT'S SKIN'S INTACT. PT DENIES PAIN NOR DISCOMFORT AT THIS TIME. NO BELONGINGS FOR THIS PATIENT. DISCHARGE INSTRUCTIONS GIVEN TO AKOSUA VARGHESE. PATIENT IS GOING TO BED 26A. MEDS RECONCILIATION AND COVID TEST DONE. IV ACCESS ON LFA G#20 SL REMOVED WITH NO ACTIVE BLEEDING APPLIED AT SITE. WELLINGTON CATHETER REMOVED WELL PER SNF'S REQUEST. PT LEFT THE UNIT AT 1550 VIA [employer] ACCOMPANIED BY 2 SADDLE TREE STITCHER. CHARGE AND MD AWARE OF THE DC.
== END 2021-12-01 15:59 | DRG 177 ==
LOC: ER 11:41 → TELE 16:55
PROVIDERS: ADMIT Internal Medicine; ATTEND Internal Medicine
DX: J15.6 Pneumonia due to other Gram-negative bacteria (principal); G93.41 Metabolic encephalopathy; J96.01 Acute respiratory failure with hypoxia; N17.0 Acute kidney failure with tubular necrosis; N13.8 Other obstructive and reflux uropathy; E22.2 Syndrome of inappropriate secretion of antidiuretic hormone; J98.11 Atelectasis; Z20.822 Contact with and (suspected) exposure to COVID-19; F02.80 Dementia in other diseases classified elsewhere, unspecified severity, without behavioral disturbance, psychotic disturbance, mood disturbance, and anxiety; G20 Parkinson's disease; G30.9 Alzheimer's disease, unspecified; G62.9 Polyneuropathy, unspecified; I10 Essential (primary) hypertension; N40.1 Benign prostatic hyperplasia with lower urinary tract symptoms; Y95 Nosocomial condition; F32.9 Major depressive disorder, single episode, unspecified; F41.9 Anxiety disorder, unspecified; F20.9 Schizophrenia, unspecified; Z86.16 Personal history of COVID-19; H26.9 Unspecified cataract; H52.4 Presbyopia; Z79.899 Other long term (current) drug therapy; D50.9 Iron deficiency anemia, unspecified; R33.9 Retention of urine, unspecified; F09 Unspecified mental disorder due to known physiological condition; Z99.81 Dependence on supplemental oxygen
CPT/HCPCS: 36415; 36600; 71045-TC; 80048-TC; 80053-TC; 82803-TC; 83735-TC; 83880; 84100-TC; 84484-TC; 85025-TC; 87081-TC; 92526; 92611-TC; 93970-TC; C9803; G0378; J0696; J1650; J2060; J2543; J3490; J7030; J7060

== ENCOUNTER 2021-12-05 14:10 | Inpatient (IN) | payer MEDICARE, OTHER ==
[~2021-12-05] VITALS: Ht 165.1 cm; Wt 72.1 kg
[~2021-12-05 14:10] MED LIST changes: -ALBU8.5H8 IH; -IPRA12.9 IH; +LEVO500T90 PO; +LORA-259 PO; +ZOLP5TAB8 PO
--- NOTE | 2021-12-05 14:15 | NUR ---
Received pt 81 yrs male transfer from [facility] DNR AWAKE CONGESTED AND COUGHING
--- NOTE | 2021-12-05 14:35 | NUR ---
INSERTED ANGO CATHETER G 20 ON LT WREST PATENT well
--- NOTE | 2021-12-05 15:00 | NUR ---
SEEN BY DR. ROSALES
[2021-12-05] MEDS ORDERED: PIPERACILLIN /TAZOBACTAM 3.375 G in IV D5W 50 ML IV ONE (15:30)
[2021-12-05] MEDS ORDERED: VANCOMYCIN 1 GM in IV D5W 250 ML IV ONE (15:30)
[2021-12-05] MEDS ORDERED: IV NS 0.9% 1,000 ML BAG IV ONE (15:30)
[2021-12-05] MEDS ORDERED: PIPERACILLIN /TAZOBACTAM 3.375 G VIAL IV ONE (15:54)
[2021-12-05] MEDS ORDERED: VANCOMYCIN 1 GM VIAL ONE (15:54)
[2021-12-05 16:02] LABS: BASOPHILS # (AUTO) 0.1 K/uL (0.0-0.2); BASOPHILS % (AUTO) 0.4 % (0.0-2.0); EOSINOPHILS % (AUTO) 0.8 % (0.0-6.0); HEMATOCRIT 26 % (39-51); HEMOGLOBIN 8.2 g/dL (13.5-17.5); LYMPHOCYTES % (AUTO) 8.4 % (20.0-44.0); MEAN CORPUSCULAR HGB CONC 32 g/dl (31.0-36.0); MEAN CORPUSCULAR VOLUME 80 fL (80-96); MONOCYTES # (AUTO) 1.4 K/uL (0.1-1.30); MONOCYTES % (AUTO) 12.2 % (2.0-12.0); NEUTROPHILS # (AUTO) 9.1 K/uL (1.8-8.9); NEUTROPHILS % (AUTO) 78.2 % (43.0-81.0); PLATELET COUNT (AUTO) 219 K/uL (150-450); RED BLOOD CELL COUNT(AUTO) 3.19 MIL/uL (4.5-6.0); WHITE BLOOD COUNT (AUTO) 11.7 K/uL (4.3-11.0)
[2021-12-05 16:12] LABS: CALCIUM, SERUM 8.7 mg/dL (8.5-10.1); CARBON DIOXIDE 32 mmol/L (21-32); CHLORIDE 103 mmol/L (98-107); GLUCOSE 104 mg/dL (74-106); POTASSIUM 3.9 mmol/L (3.5-5.1); SODIUM SERUM 140 mmol/L (136-145); UREA NITROGEN, BLOOD 31 mg/dL (7-18)
--- NOTE | 2021-12-05 16:15 | NUR ---
COVID SWAB SENT TO LAB
[2021-12-05 16:24] LABS: ALANINE AMINOTRANSFERASE 26 U/L (12-78); ALKALINE PHOSPHATASE 67 U/L (46-116); ASPARTATE AMINOTRANSFERASE 20 U/L (15-37); BILIRUBIN,DIRECT 0.1 mg/dL (0.0-0.2); BILIRUBIN,TOTAL 0.2 mg/dL (0.2-1.0)
[2021-12-05] MEDS ORDERED: IPRA12.9 IH (16:38)
[2021-12-05] MEDS ORDERED: TAMS-12 PO (16:38)
[2021-12-05] MEDS ORDERED: ALBU8.5H8 IH (16:38)
[2021-12-05] MEDS ORDERED: ALBUTEROL FS 2.5 MG/3 ML VIAL.NEB ONE (16:54)
[2021-12-05] MEDS ORDERED: IPRATROPIUM NEB FS 0.5 MG/2.5 ML AMPUL.NEB ONE (16:54)
--- NOTE | 2021-12-05 16:54 | NUR ---
RT AT BED SIDE nasophrange suction done
[2021-12-05] MEDS ORDERED: ALBUTEROL FS 2.5 MG/0.5 ML VIAL.NEB NEB ONE (17:00)
[2021-12-05] MEDS ORDERED: IPRATROPIUM NEB FS 0.5 MG/2.5 ML AMPUL.NEB NEB ONE (17:00)
[2021-12-05] MEDS ORDERED: ASPIRIN 325 MG TABLET PO ONE (17:00)
--- NOTE | 2021-12-05 17:00 | NUR ---
PT CONFUSED PULLING OUT IV LINE TRY TO GOT OUT OF BED
[2021-12-05] MEDS ORDERED: ENOXAPARIN SODIUM 60 MG/0.6 ML DISP.SYRIN SQ ONE ×2 (17:30→17:58)
[2021-12-05] MEDS ORDERED: ASPIRIN 325 MG TABLET ONE (17:59)
--- NOTE | 2021-12-05 18:00 | NUR ---
PT CONDITION UNSTABLE
--- NOTE | 2021-12-05 19:25 | NUR ---
HAND OFF KITELLIOT RN
[2021-12-05] MEDS ORDERED: MAGNESIUM HYDROXIDE 30 ML UDC PO PRN (20:00)
[2021-12-05] MEDS ORDERED: ONDANSETRON HCL/PF 4 MG/2 ML VIAL IVP PRN (20:00)
[2021-12-05] MEDS ORDERED: ACETAMINOPHEN 325 MG TABLET PO PRN (20:00)
[2021-12-05] MEDS ORDERED: HYDROCODONE/APAP 5/325MG TABLET PO PRN (20:00)
[2021-12-05] MEDS ORDERED: ZOLPIDEM TARTRATE 5 MG TABLET PO PRN (20:00)
[2021-12-05] MEDS ORDERED: MORPHINE SULFATE INJ 2 MG/ML DISP.SYRIN IV PRN (20:00)
[2021-12-05] MEDS ORDERED: Z GUARD REMEDY 4 OZ OINT TP PRN (20:00)
[2021-12-05] MEDS ORDERED: LORAZEPAM INJ 2 MG/ML VIAL IV PRN (20:00)
[2021-12-05] MEDS ORDERED: MAG HYDROX/AL HYDROX/SIMETH 30 ML UDC PO PRN (20:00)
--- NOTE | 2021-12-05 20:13 | NUR ---
REPORT GIVEN TO JOYCELYN
[2021-12-05 20:42] LABS: BILIRUBIN,URINE NEGATIVE (NEGATIVE); COLOR,URINE YELLOW (YELLOW); LEUKOCYTE ESTERASE ,URINE NEGATIVE (NEGATIVE); NITRITE, URINE NEGATIVE (NEGATIVE); PH,URINE 5.5 (5.0-8.0); PROTEIN,URINE NEGATIVE (NEGATIVE); UGLUCOSE NEGATIVE (NEGATIVE); UROBILINOGEN,URINE 0.2 EU/dL (0.2)
[2021-12-05 20:45] LABS: BACTERIA,URINE Rare /HPF (None Seen); SQUAMOUS EPITHELIAL CELL,UR Few /HPF (None Seen); WBC,URINE 0-2 /HPF (0-3)
--- NOTE | 2021-12-05 20:54 | NUR ---
PT TRANSPORTED TO 324 ON CARDIAC PER ACLS IN STABLE CONDITION
--- NOTE | 2021-12-05 21:00 | NUR ---
RN ADMITTING NOTE PATIENT FROM ER BEING ADMITTED FOR SOB. PATIENT IS A/OX 1 TO PERSON ONLY. PATIENT IS CONFUSED, MILDLY UNCOOPERATIVE. PATIENT ABLE TO WALK FROM GURNEY TO THE BED WITH ASSISTANCE. PATIENT RECEIVED ON 3 LPM VIA NC SATTING 85% AND PATIENT NOTED TO BE COUGHING AND WITH SOB. WHEEZING HEARD UPON AUSCULTATION OF THE LUNGS. INCREASED O2 TO 4 LPM NOW 95%-98% NOW THAT THE PATIENT IS CALMER. R HAND 20 G PATENT AND INTACT, SALINE LOCKED ONLY. PATIENT'S SKIN ISSUES PHOTOGRAPHED AND DOCUMENTED. BELONGINGS INVENTORIED. ORIENTED PATIENT TO ROOM, RN, AND RN INTENSIVE CARE UNIT. SAFETY MEASURES IN PLACE: BED LOCKED AND IN LOWEST POSITION, CALL LIGHT WITHIN REACH, SIDE RAILS UP. WILL MONITOR PATIENT CLOSELY.
[2021-12-05 22:00] VITALS: BP 146/81
--- NOTE | 2021-12-05 22:45 | NUR ---
RN NOTE PATIENT NOW HAS INCREASED AGITATION AND KEEPS TRYING TO GET OUT OF BED. PATIENT IS RESTLESS AND WANTING TO REMOVE IV ACCESS AND WELLINGTON CATHETER. PATIENT IS ALSO DESATTING WITH SATURATION IN THE 80'S. INFORMED MD REGARDING PATIENT'S BEHAVIOR AND OBTAINED SOFT WRIST RESTRAINTS ORDERS AND BREATHING TX.
--- NOTE | 2021-12-05 22:52 | NUR ---
RN NOTE PATIENT GIVEN ATIVAN 1 MG IV FOR INCREASED AGITATION. WASTED PARTIAL DOSE WITH AKOSUA STOKES.
[2021-12-05] MEDS ORDERED: ALBUTEROL FS 2.5 MG/3 ML VIAL.NEB NEB PRN (23:00)
[2021-12-05] MEDS ORDERED: IPRATROPIUM NEB FS 0.5 MG/2.5 ML AMPUL.NEB NEB PRN (23:00)
--- NOTE | 2021-12-05 23:00 | NUR ---
RN NOTE PATIENT NOW ON 3LPM VIA NC SATTING 96%, AFTER RT ADMINISTERED BREATHING TX.
[2021-12-06] VITALS (11 sets, daily range): BP systolic 101–147; BP diastolic 48–93
--- NOTE | 2021-12-06 00:48 | NUR ---
RN NOTE LAB REPORTED PATIENT'S TROPONIN LEVEL AT 261. WILL INFORM MD.
[2021-12-06] MEDS: GUAIFENESIN/CODEINE 10 ML UDC PO PRN ×2 (02:06→17:39)
--- NOTE | 2021-12-06 02:06 | NUR ---
RN NOTE PATIENT COUGHING EXCESSIVELY AND BECOMING RESTLESS D/T THE COUGHING. INFORMED BHARGAVI ICT SUPPORT AND TEST ENGINEERS MD ORDERED GUAIFENESIN 5 ML PO Q8HR PRN. ORDER READ BACK AND CARRIED OUT.
--- NOTE | 2021-12-06 03:05 | NUR ---
RN NOTE PATIENT SLEEPING, NO COUGHING NOTED AT THIS TIME.
[2021-12-06 06:54] LABS: BASOPHILS % (AUTO) 0.2 % (0.0-2.0); EOSINOPHILS % (AUTO) 0.9 % (0.0-6.0); LYMPHOCYTES # (AUTO) 0.7 K/uL (0.8-4.8); LYMPHOCYTES % (AUTO) 8.4 % (20.0-44.0); MEAN CORPUSCULAR HGB CONC 33 g/dl (31.0-36.0); MEAN CORPUSCULAR VOLUME 79 fL (80-96); MONOCYTES # (AUTO) 0.9 K/uL (0.1-1.30); MONOCYTES % (AUTO) 10.6 % (2.0-12.0); NEUTROPHILS # (AUTO) 6.7 K/uL (1.8-8.9); NEUTROPHILS % (AUTO) 79.9 % (43.0-81.0); PLATELET COUNT (AUTO) 175 K/uL (150-450); RED BLOOD CELL COUNT(AUTO) 2.55 MIL/uL (4.5-6.0); WHITE BLOOD COUNT (AUTO) 8.3 K/uL (4.3-11.0)
[2021-12-06 07:07] LABS: HEMOGLOBIN 6.7 g/dL (13.5-17.5)
[2021-12-06 07:08] LABS: HEMATOCRIT 20 % (39-51)
--- NOTE | 2021-12-06 07:24 | NUR ---
RN CLOSING NOTE PATIENT IN BED, AWAKE. PATIENT IS A/O X 1 AT THIS TIME. PATIENT ON 5 LPM VIA NC, SATTING 98-100%. PATIENT STILL COUGHING. BREATHING TX GIVEN PRN. JUNE FROM LAB REPORTED HGB OF 6.7, DIVYA VICK RN AWARE. ALL NEEDS MET AND ATTENDED, ALL ORDERS LYDIA OUT. SAFETY MEASURES IMPLEMENTED. ENDORSED TO DAY SHIFT NURSE FOR JUAN.
[2021-12-06 07:26] LABS: CALCIUM, SERUM 7.8 mg/dL (8.5-10.1); CREATININE 0.7 mg/dL (0.6-1.3); MAGNESIUM 1.8 mg/dL (1.8-2.4); PHOSPHORUS 2.9 mg/dL (2.5-4.9); POTASSIUM 3.4 mmol/L (3.5-5.1)
[2021-12-06] MEDS ORDERED: PANTOPRAZOLE 40 MG TABLET.DR PO SCH (07:30)
--- NOTE | 2021-12-06 07:30 | NUR ---
FISHER TERRAPIN OPENING NOTE RECEIVED PT AWAKE AND RESTING IN BED. PT IS A/O X1, REORIENTED PT NEEDED. ON O2 AT 5L/MIN VIA NASAL CANNULA WITH CURRENT SPO2 97%, TOLERATING WELL. NO SOB NOTED. NOT IN ANY SIGN OF RESPIRATORY DISTRESS. ON TELE CLEARING INSPECTOR WITH CURRENT READING OF SINUS RHYTHM, HR 92. NO C/O CARDIAC DISTRESS VOICED OUT AT THIS TIME. IV ACCESS IN R HAND G#20 INTACT AND PATENT. PT NOTED WITH BILATERAL SOFT WRIST RESTRAINTS ORDERED. NO CIRCULATION PROBLEM NOTED. SAFETY MEASURES IN PLACE: BED IN LOWEST AND LOCKED POSITION, SIDE RAILS UP X2, BED ALARM ON, AND CALL LIGHT WITHIN REACH. WILL CONTINUE TO MONITOR PT.
--- NOTE | 2021-12-06 07:31 | NUR ---
RN NOTE NIGHT NURSE AKOSUA HIRSCH ENDORSED OF CRITICAL LAB VALUE OF HGB LEVEL OF 6.7. MADE CHARGED NURSE, HOSSEIN CALDERON. PER YUMIKO YANCEY ORDERED FOR A STAT REPEAT DRAW OF HEMOGLOBIN AND HEMATOCRIT.
[2021-12-06] MEDS: ENOXAPARIN SODIUM 40 MG/0.4 ML DISP.SYRIN SQ SCH (08:30)
--- NOTE | 2021-12-06 08:30 | NUR ---
AKOSUA GARCIA RECEIVED A CALL FROM [employer] WITH A CRITICAL LAB VALUE OF TROPONIN LEVEL 234. CALLED DR. DARREL WARNER AND MADE AWARE OF THE CRITICAL LAB VALUE WITH NO NEW ORDER AT THIS TIME.
[2021-12-06] MEDS ORDERED: ENOXAPARIN SODIUM 80 MG/0.8 ML DISP.SYRIN SQ SCH (09:00)
[2021-12-06] MEDS ORDERED: POTASSIUM CHLORIDE 20 MEQ TAB.PRT.SR PO SCH (09:00)
[2021-12-06] MEDS ORDERED: risperiDONE 0.25 MG TABLET PO SCH (09:00)
[2021-12-06 09:05] LABS: HEMOGLOBIN 6.5 g/dL (13.5-17.5)
--- NOTE | 2021-12-06 09:06 | NUR ---
RN NOTE LOVENOX MEDICATION SCHEDULED AT 0830 NOT ADMINISTERED. PT'S HEMOGLOBIN IS 6.5.
[2021-12-06 09:10] LABS: THYROID STIMULATING HORMONE 1.075 uIU/mL (0.358-3.74)
--- NOTE | 2021-12-06 09:15 | NUR ---
RN NOTE RECEIVED A CALL FROM [employer], JUNE WITH A CRITICAL LAB VALUE OF THE REPEATED DRAW OF HEMOGLOBIN, IS 6.5. CALLED DR. DARREL WARNER AND MADE AWARE OF THE CRITICAL LAB VALUE WITH ORDERS TO TRANSFUSE PATIENT 1 UNIT OF PRBC.
--- NOTE | 2021-12-06 09:22 | NUR ---
RN NOTE TELEPHONE CONSENT FOR BLOOD TRANSFUSION OBTAINED FROM PT'S SISTER, KATHY MYERS AND AGREED ON THE BLOOD TRANSFUSION FOR THE PT. TELEPHONE CONSENT WAS VERIFIED AND WITNESSED BY RN NURSE, EMIGDIO.
--- NOTE | 2021-12-06 09:30 | NUR ---
RN NOTE CALLED DR. DARREL WARNER AND MADE HER AWARE THAT DR. SIMS ALREADY ORDERED THE PRBC. PER DR. WARNER TO CANCEL HER ORDER AND FOLLOW DR. SIMS'S ORDER.
[2021-12-06] MEDS: FUROSEMIDE 40 MG/4 ML VIAL IV SCH (09:40)
[2021-12-06] MEDS: GABAPENTIN 100 MG CAPSULE PO SCH ×4 (09:41→21:31)
[2021-12-06] MEDS: risperiDONE 1 MG TABLET PO SCH ×3 (10:07→16:42)
--- NOTE | 2021-12-06 12:49 | NUR ---
RN NOTE BLOOD VERIFIED AND WITNESSED BY AKOSUA ESPINOZA. BLOOD TRANSFUSION STARTED. VITAL SIGNS PRIOR TO BLOOD TRANSFUSION IS BP 133/65, P 74, TEMP 97.9, R 18, SPO2 98%. WILL CONTINUE TO MONITOR PT. Addendum: 12/06/21 at 1623 by DIVYA MAGUIRE RN ADDENDUM: PT WAS ON O2 AT 4L/MIN VIA NASAL CANNULA.
--- NOTE | 2021-12-06 13:04 | NUR ---
RN NOTE AFTER 15 MINUTES OF BLOOD TRANSFUSION. NO ADVERSE REACTIONS NOTED. NO SIGNS OF FEVER OR RASHES. NO C/O CHILLS VOICED OUT FROM PT AT THIS TIME. VITAL SIGNS: BP 131/58, P 75, R 18, TEMP 98.4, SPO2 97%. WILL CONTINUE TO MONITOR PT. Addendum: 12/06/21 at 1623 by DIVYA MAGUIRE RN ADDENDUM: PT WAS ON O2 AT 4L/MIN VIA NASAL CANNULA.
--- NOTE | 2021-12-06 13:34 | NUR ---
RN NOTE REASSESSED PT AFTER ANOTHER 30 MINUTES OF BLOOD TRANSFUSION. NO ADVERSE REACTIONS NOTED. NO SIGNS OF FEVER OR RASHES. NO C/O CHILLS VOICED OUT FROM PT AT THIS TIME. VITAL SIGNS: BP 101/48, P 80, R 18, TEMP 99.2, SPO2 97%. WILL CONTINUE TO MONITOR PT. Addendum: 12/06/21 at 1624 by DIVYA MAGUIRE RN ADDENDUM: PT WAS ON O2 AT 4L/MIN VIA NASAL CANNULA.
--- NOTE | 2021-12-06 14:34 | NUR ---
RN NOTE REASSESSED PT AFTER ANOTHER 1 HOUR OF BLOOD TRANSFUSION. NO ADVERSE REACTIONS NOTED. NO SIGNS OF FEVER OR RASHES. NO C/O CHILLS VOICED OUT FROM PT AT THIS TIME. VITAL SIGNS: BP 132/61, P 72, R 18, TEMP 99.3, SPO2 98%. WILL CONTINUE TO MONITOR PT. Addendum: 12/06/21 at 1624 by DIVYA MAGUIRE RN ADDENDUM: PT WAS ON O2 AT 4L/MIN VIA NASAL CANNULA.
--- NOTE | 2021-12-06 15:41 | NUR ---
RN NOTE BLOOD TRANSFUSION ENDED AND COMPLETED BY YUMIKO CHARGED NURSE AT 1534. NO ADVERSE REACTIONS NOTED. NO SIGNS OF FEVER OR RASHES. NO C/O CHILLS VOICED OUT FROM PT AT THIS TIME. VITAL SIGNS: BP 147/68, P 74, R 27, TEMP 98.4, SPO2 97% ON O2 AT 4L/MIN VIA NASAL CANNULA.
[2021-12-06 16:29] LABS: BAND % (MANUAL) 3 % (0.0-5.0); BASOPHILS % (MANUAL) 0 % (0.0-2.0); EOSINOPHILS % (MANUAL) 0 % (0-4); LYMPHOCYTES % (MANUAL) 5 % (16-48); MONOCYTES % (MANUAL) 11 % (0-11.0); NEUTROPHILS % (MANUAL) 81 (42-76)
[2021-12-06] MEDS ORDERED: IOHEXOL-350 100 ML VIAL IV ONE (16:32)
[2021-12-06] MEDS ORDERED: IV NS 0.9% 250 ML IV ONE (16:32)
--- NOTE | 2021-12-06 17:43 | NUR ---
RN NOTE PT NOTED WITH EPISODES OF COUGHING. ROBITUSSIN WITH CODEINE 5ML PO ORDERED PRN Q8H FOR COUGH. PARTIAL DOSE WASTED AND WAS WITNESSED BY AKOSUA ESPINOZA. WILL MONITOR AND REASSESS PT.
[2021-12-06 17:56] LABS: OCCULT BLOOD STOOL NEGATIVE (NEGATIVE)
--- NOTE | 2021-12-06 18:50 | NUR ---
COMPOUNDER STERILE PRODUCTS CLOSING NOTE PT AWAKE AND RESTING IN BED. PT IS A/O X1, REORIENTED PT NEEDED. ON O2 AT 4L/MIN VIA NASAL CANNULA WITH CURRENT SPO2 97%, TOLERATING WELL. NO SOB NOTED. NOT IN ANY SIGN OF RESPIRATORY DISTRESS. ON TELE BUS AND TROLLEY DISPATCHER WITH CURRENT READING OF SINUS RHYTHM, HR 86. NO C/O CARDIAC DISTRESS VOICED OUT AT THIS TIME. IV ACCESS IN R HAND G#20 AND RFA G#18 SALINE LOCK, INTACT AND PATENT. PT ON BILATERAL SOFT WRIST RESTRAINTS ORDERED. NO CIRCULATION PROBLEM NOTED. ALL NEEDS ATTENDED. KEPT CLEAN AND COMFORTABL. SAFETY MEASURES IN PLACE: BED IN LOWEST AND LOCKED POSITION, SIDE RAILS UP X2, BED ALARM ON, AND CALL LIGHT WITHIN REACH. WILL ENDORSE TO MEDICAL PHYSICIST NURSE FOR JUAN.
[2021-12-06] MEDS: DONEPEZIL 5 MG TABLET PO SCH (21:31)
[2021-12-06] MEDS: PANTOPRAZOLE 40 MG VIAL IV SCH (21:31)
[2021-12-06] MEDS: TAMSULOSIN 0.4 MG CAP.SR.24H PO SCH (21:31)
[2021-12-07] VITALS: BP 159/77
[2021-12-07 04:00] VITALS: BP 157/73
[2021-12-07 06:33] LABS: CALCIUM, SERUM 8.1 mg/dL (8.5-10.1); CREATININE 0.8 mg/dL (0.6-1.3)
--- NOTE | 2021-12-07 06:49 | NUR ---
POLISHING MACHINE TENDER CLOSING NOTE PT ASLEEP IN BED. PT IS A/O X1, REORIENTED PT NEEDED. ON O2 AT 4L/MIN VIA NASAL CANNULA WITH CURRENT SPO2 97%, TOLERATING WELL. NO SOB NOTED. NOT IN ANY SIGN OF RESPIRATORY DISTRESS. ON TELE TRESTLE MAINTERNANCE LABORER WITH CURRENT READING OF SINUS RHYTHM. NO C/O CARDIAC DISTRESS VOICED OUT AT THIS TIME. IV ACCESS IN R HAND G#20 AND RFA G#18 SALINE LOCK, INTACT AND PATENT. PT ON BILATERAL SOFT WRIST RESTRAINTS ORDERED. NO CIRCULATION PROBLEM NOTED. ALL NEEDS ATTENDED. KEPT CLEAN AND COMFORTABLE. SAFETY MEASURES IN PLACE: BED IN LOWEST AND LOCKED POSITION, SIDE RAILS UP X2, BED ALARM ON, AND CALL LIGHT WITHIN REACH. WILL CONTINUE TO MONITOR.
--- NOTE | 2021-12-07 07:20 | NUR ---
DISASSEMBLER PRODUCT OPENING NOTE Received patient in bed, A/O x1, on 02 at 4LPM via nasal cannula with current SP02 of 98%, breathing evenly and unlabored. No SOB noted. Patient on external groundwater monitoring technician with reading of SR, HR 60. IV access at Right hand #20 and Right forearm #18 Saline lock, intact and patent. Patient on Singh catheter, draining tea-colored urine with current output of 800cc. Pt on bilateral soft wrist restraints as ordered. no circulation problem noted. Safety measures in place: bed in lowest and locked position, side rails up x2, bed alarm on and call light within reach. Will continue to monitor.
[2021-12-07 08:00] VITALS: BP 137/62
[2021-12-07] MEDS: GABAPENTIN 100 MG CAPSULE PO SCH ×4 (08:14→21:08)
[2021-12-07] MEDS: PANTOPRAZOLE 40 MG VIAL IV SCH ×2 (08:14→21:08)
[2021-12-07] MEDS: FUROSEMIDE 40 MG/4 ML VIAL IV SCH (08:14)
[2021-12-07] MEDS: risperiDONE 1 MG TABLET PO SCH ×3 (08:14→16:27)
[2021-12-07] MEDS: ENOXAPARIN SODIUM 40 MG/0.4 ML DISP.SYRIN SQ SCH (08:30)
--- NOTE | 2021-12-07 08:46 | NUR ---
RN NOTES LOVENOX MEDICATION SCHEDULED AT 0830 NOT ADMINISTERED. PT WITH LOW H/H.
[2021-12-07 09:06] LABS: BASOPHILS % (AUTO) 0.2 % (0.0-2.0); EOSINOPHILS % (AUTO) 2.1 % (0.0-6.0); HEMATOCRIT 24 % (39-51); HEMOGLOBIN 7.6 g/dL (13.5-17.5); LYMPHOCYTES # (AUTO) 0.9 K/uL (0.8-4.8); LYMPHOCYTES % (AUTO) 13.4 % (20.0-44.0); MEAN CORPUSCULAR HGB CONC 32 g/dl (31.0-36.0); MEAN CORPUSCULAR VOLUME 81 fL (80-96); MONOCYTES # (AUTO) 1.2 K/uL (0.1-1.30); NEUTROPHILS # (AUTO) 4.7 K/uL (1.8-8.9); NEUTROPHILS % (AUTO) 67.3 % (43.0-81.0); PLATELET COUNT (AUTO) 181 K/uL (150-450)
[2021-12-07] MEDS ORDERED: POTASSIUM CHLORIDE 20 MEQ TAB.PRT.SR PO SCH (10:00)
[2021-12-07 10:37] LABS: LYMPHOCYTES % (MANUAL) 15 % (16-48); MONOCYTES % (MANUAL) 12 % (0-11.0); NEUTROPHILS % (MANUAL) 73 (42-76)
--- NOTE | 2021-12-07 10:42 | NUR ---
RN NOTES PT NOTED WITH HGB 7.6 THIS MORNING. CONFIRMED WITH DOCTOR'S ASSISTANT ALANA IF TO INFUSE PRBC X1 TODAY AND SHE STATED NOT TODAY.
[2021-12-07 12:00] VITALS: BP 141/57
[2021-12-07] MEDS: GUAIFENESIN/CODEINE 10 ML UDC PO PRN (14:21)
--- NOTE | 2021-12-07 14:30 | NUR ---
RN NOTE Noted coughing. Administered PRN Guaifenesin/ Codeine 5ml.
--- NOTE | 2021-12-07 18:43 | NUR ---
DIRECTOR OF CONSUMER AFFAIRS CLOSING NOTE Patient in bed, resting at this time, easily arousable. A/O x1, on 02 at 3LPM via nasal cannula with current SP02 of 98%, breathing evenly and unlabored. No SOB noted. Patient on external field interviewer with current reading of SR, HR 87 with BBB. IV access at Right hand #20 and Right forearm #18 Saline lock, intact and patent. Patient on Singh catheter, draining clear yellow urine. Patient on bilateral soft wrist restraints as ordered. no circulation problem noted. Safety measures in place: bed in lowest and locked position, side rails up x3, bed alarm on and call light within reach. Will endorse JUAN to restaurant shift supervisor nurse.
--- NOTE | 2021-12-07 19:30 | NUR ---
RN OPENING NOTES RECEIVED PT IN BED, ASLEEP, AWAKENS TO VERBAL STIMULI. AOx1, CONFUSED. ON NC 3LPM AND TOLERATING WELL. NO SOB NOTED. NO S/SX OF RESPIRATORY DISTRESS NOTED. ON TELE MONITOR AND DETECTS TELE MONITOR DETECTS SINUS RHYTHM WITH BBB AND RATE OF 85. IV ACCESS IN R HAND #20G AND RFA #18G. IV IS INTACT, PATENT, AND FLUSHING WELL. SAFETY PRECAUTIONS IN PLACE: BED IN LOWEST, LOCKED POSITION, SIDERAILS UPx2, AND BRAKES ON. TABLE AND CALL LIGHT WITHIN REACH. ALL NEEDS MET AT THIS TIME.
[2021-12-07 20:00] VITALS: BP 97/75
[2021-12-07] MEDS: DONEPEZIL 5 MG TABLET PO SCH (21:08)
[2021-12-07] MEDS: TAMSULOSIN 0.4 MG CAP.SR.24H PO SCH (21:08)
[2021-12-08] VITALS: BP 157/79
[2021-12-08 04:00] VITALS: BP 163/78
--- NOTE | 2021-12-08 06:47 | NUR ---
RN CLOSING NOTES PT IN BED, ASLEEP, AWAKENS TO VERBAL STIMULI. AOx1, CONFUSED. ON NC 3LPM AND TOLERATING WELL. NO SOB NOTED. NO S/SX OF RESPIRATORY DISTRESS NOTED. ON TELE MONITOR AND DETECTS TELE MONITOR DETECTS SINUS RHYTHM WITH BBB AND RATE OF 85. IV ACCESS IN R HAND #20G AND RFA #18G. IV IS INTACT, PATENT, AND FLUSHING WELL. ALL ORDERS CARRIED OUT. ALL NEEDS MET. PT KEPT CLEAN AND DRY. SAFETY PRECAUTIONS IN PLACE: BED IN LOWEST, LOCKED POSITION, SIDERAILS UPx2, AND BRAKES ON. TABLE AND CALL LIGHT WITHIN REACH. WILL ENDORSE TO ONCOMING SHIFT FOR JUAN.
[2021-12-08 06:55] LABS: BASOPHILS % (AUTO) 0.2 % (0.0-2.0); EOSINOPHILS % (AUTO) 3.2 % (0.0-6.0); HEMATOCRIT 26 % (39-51); HEMOGLOBIN 8.7 g/dL (13.5-17.5); LYMPHOCYTES # (AUTO) 0.9 K/uL (0.8-4.8); LYMPHOCYTES % (AUTO) 15.5 % (20.0-44.0); MEAN CORPUSCULAR HGB CONC 33 g/dl (31.0-36.0); MEAN CORPUSCULAR VOLUME 80 fL (80-96); MONOCYTES # (AUTO) 0.8 K/uL (0.1-1.30); MONOCYTES % (AUTO) 14.5 % (2.0-12.0); NEUTROPHILS # (AUTO) 3.8 K/uL (1.8-8.9); NEUTROPHILS % (AUTO) 66.6 % (43.0-81.0); PLATELET COUNT (AUTO) 236 K/uL (150-450); RED BLOOD CELL COUNT(AUTO) 3.32 MIL/uL (4.5-6.0); WHITE BLOOD COUNT (AUTO) 5.6 K/uL (4.3-11.0)
[2021-12-08 07:01] LABS: CARBON DIOXIDE 31 mmol/L (21-32); CHLORIDE 100 mmol/L (98-107); CREATININE 0.7 mg/dL (0.6-1.3); GLUCOSE 101 mg/dL (74-106); POTASSIUM 3.5 mmol/L (3.5-5.1); SODIUM SERUM 137 mmol/L (136-145); UREA NITROGEN, BLOOD 16 mg/dL (7-18)
--- NOTE | 2021-12-08 07:30 | NUR ---
PSYCHOLOGIST PERSONNEL OPENING NOTES RECEIVED PT IN BED, AWAKE, AOx1, CONFUSED. ON O2 @ 3 LPM VIA NC, TOLERATING WELL. NO SIGNS OF SOB OR LABORED BREATHING. ON TELE MONITOR SHOWING SINUS RHYTHM WITH BBB AND RATE OF 64. IV ACCESS IN R HAND #20G AND RFA #18G SL, BOTH INTACT AND PATENT. SAFETY PRECAUTIONS IN PLACE. BED LOCKED AND IN LOWEST POSITION. SIDE RAILS UP x3. TABLE AND CALL LIGHT WITHIN REACH. WILL CONTINUE TO MONITOR.
--- NOTE | 2021-12-08 08:13 | NUR ---
WOUND CARE CONSULT: PT PRESENTS WITH BLANCHABLE REDNESS TO HEELS, SACRAL SCARRING AND SOME DISCOLORATION/DRY SCAB TO RT POSTERIOR THIGH, PRESENT ON ADMISSION. RECOMMENDATIONS MADE FOR SKIN PROTECTION. DISCUSSED WITH NURSING STAFF. MD IN AGREEMENT WITH PLAN OF CARE.
[2021-12-08] MEDS: ENOXAPARIN SODIUM 40 MG/0.4 ML DISP.SYRIN SQ SCH (08:30)
[2021-12-08] MEDS: risperiDONE 1 MG TABLET PO SCH ×3 (08:43→16:15)
[2021-12-08] MEDS: PANTOPRAZOLE 40 MG VIAL IV SCH ×2 (08:44→21:18)
[2021-12-08] MEDS: FUROSEMIDE 40 MG/4 ML VIAL IV SCH (08:44)
[2021-12-08] MEDS: GABAPENTIN 100 MG CAPSULE PO SCH ×4 (08:44→21:18)
[2021-12-08] MEDS: LEVOFLOXACIN 500 MG /D5W 100ML 500 MG in PREMIX 1 EA IV SCH (11:03)
--- NOTE | 2021-12-08 18:41 | NUR ---
CRM ANALYST OPENING NOTES PT SLEEPING IN BED, AOx1, CONFUSED. STABLE ON O2 @ 3 LPM VIA NC, TOLERATING WELL. NO SIGNS OF SOB OR LABORED BREATHING. ON TELE MONITOR SHOWING SINUS RHYTHM WITH BBB AND RATE OF 87. IV ACCESS IN R HAND #20G AND RFA #18G SL, BOTH INTACT AND PATENT. ADMINISTERED MEDICATIONS TOLERATED WELL. SAFETY PRECAUTIONS MAINTAINED. BED LOCKED AND IN LOWEST POSITION. SIDE RAILS UP x3. TABLE AND CALL LIGHT WITHIN REACH. WILL ENDORSE TO STEEL FLOOR PAN PLACING SUPERVISOR ANY JUAN.
[2021-12-08 20:00] VITALS: BP 120/67
[2021-12-08] MEDS: DONEPEZIL 5 MG TABLET PO SCH (21:18)
[2021-12-08] MEDS: TAMSULOSIN 0.4 MG CAP.SR.24H PO SCH (21:18)
[2021-12-08] MEDS: GUAIFENESIN/CODEINE 10 ML UDC PO PRN (22:36)
--- NOTE | 2021-12-08 22:36 | NUR ---
RN NOTES ADMINISTERED CODEINE AND GUAIFENESIN FOR COUGH PER MD ORDER. VS WNL.
[2021-12-09] VITALS: BP 129/83
[2021-12-09 04:28] VITALS: BP 128/60
[2021-12-09 05:53] LABS: ABG BASE EXCESS 6.2 mmol/L; ABG OXYGEN SATURATION 93.2 % (92.0-98.5); ABG PCO2 42.1 mmHg (35.0-45.0); ABG PH 7.476 (7.350-7.450); ABG PO2 67.2 mmHg (75.0-100.0); AaDO2 140.6 mmHg; MetHb 0.1 % (0.0-1.5); O2Hb 93.1 % (94.0-97.0); SITE, ABG Right Radial; VENT MODE, BG Nasal Cannula
[2021-12-09 06:33] LABS: BASOPHILS % (AUTO) 0.2 % (0.0-2.0); EOSINOPHILS % (AUTO) 3.3 % (0.0-6.0); HEMATOCRIT 27 % (39-51); HEMOGLOBIN 8.9 g/dL (13.5-17.5); LYMPHOCYTES # (AUTO) 1.1 K/uL (0.8-4.8); LYMPHOCYTES % (AUTO) 20.1 % (20.0-44.0); MEAN CORPUSCULAR HGB CONC 33 g/dl (31.0-36.0); MEAN CORPUSCULAR VOLUME 79 fL (80-96); MONOCYTES % (AUTO) 19.3 % (2.0-12.0); NEUTROPHILS % (AUTO) 57.1 % (43.0-81.0); PLATELET COUNT (AUTO) 257 K/uL (150-450); RED BLOOD CELL COUNT(AUTO) 3.44 MIL/uL (4.5-6.0); WHITE BLOOD COUNT (AUTO) 5.3 K/uL (4.3-11.0)
[2021-12-09 07:00] VITALS: BP 150/65
[2021-12-09 07:10] LABS: CALCIUM, SERUM 8.1 mg/dL (8.5-10.1); CREATININE 0.8 mg/dL (0.6-1.3); POTASSIUM 3.6 mmol/L (3.5-5.1)
--- NOTE | 2021-12-09 08:11 | NUR ---
SERVICE GIRL OPENING NOTES RECEIVED PT IN BED, ASLEEP, AWAKENS TO VERBAL STIMULI. AOx1, CONFUSED. ON NC 3LPM AND TOLERATING WELL. NO SOB NOTED. NO NOTED S/S OF RESPIRATORY DISTRESS. ON TELE MONITOR READING SINUS RHYTHM WITH BBB AND RATE OF 79. IV ACCESS @R HAND #20G AND RFA #18G, SL, INTACT, PATENT, AND FLUSHING WELL. SAFETY PRECAUTIONS IN PLACE: BED IN LOWEST, LOCKED POSITION, SIDERAILS UPx2, AND BRAKES ON. TABLE AND CALL LIGHT WITHIN REACH; WILL CONT WITH PLAN OF CARE DURING SHIFT.
[2021-12-09] MEDS: ENOXAPARIN SODIUM 40 MG/0.4 ML DISP.SYRIN SQ SCH (08:30)
[2021-12-09] MEDS: risperiDONE 1 MG TABLET PO SCH ×3 (08:46→17:00)
[2021-12-09] MEDS: FUROSEMIDE 40 MG/4 ML VIAL IV SCH (08:46)
[2021-12-09] MEDS: GABAPENTIN 100 MG CAPSULE PO SCH ×3 (08:47→17:00)
[2021-12-09] MEDS: PANTOPRAZOLE 40 MG VIAL IV SCH (08:47)
[2021-12-09] MEDS: LEVOFLOXACIN 500 MG /D5W 100ML 500 MG in PREMIX 1 EA IV SCH (11:32)
[2021-12-09 11:42] LABS: EOSINOPHILS % (MANUAL) 2 % (0-4); LYMPHOCYTES % (MANUAL) 16 % (16-48); MONOCYTES % (MANUAL) 21 % (0-11.0); NEUTROPHILS % (MANUAL) 61 (42-76)
[2021-12-09 12:00] VITALS: BP 135/70
[2021-12-09] MEDS ORDERED: PANT40TA2 PO (13:59)
[2021-12-09] MEDS ORDERED: IPRA0.2S9 NEB (13:59)
[2021-12-09] MEDS ORDERED: ALBUT2 NEB (13:59)
[2021-12-09] MEDS ORDERED: GUAI10SY3 PO (13:59)
[2021-12-09] MEDS ORDERED: LEVO750P5 IV (13:59)
--- NOTE | 2021-12-09 17:00 | NUR ---
SUPERVISOR SLATE SPLITTINGSEAL MIXER NOTES: PT CLINICALLY STABLE FOR DISCHARGE. VITALS WNL; BP-118/62, HR- 74, RR-18, TEMP 97.9, O2 SAT 97% ON 3L O2. PT UNABLE TO SIGN BELONGINGS AND DC INSTRUCTIONS, 2 MACHINE GRAINER WITNESSED AND SIGNED DOCUMENTS. IV ACCESS AT R HAND # 20 SL, KEPT IN PLACE FOR CONTINUED IVPB ABX X7 DAYS PER MD ORDER. IV ACCESS FLUSHING WELL, PATENT AND INTACT. [place]LL[place] CATH LEFT IN PLACE DUE TO URINE RETENTION. TELE BOX AND ID BAND REMOVED. ENDORSED TO AKOSUA COLE BY PHONE AT [facility]. REPORT GIVEN AT BEDSIDE TO EMT, LAST NAME JULIO. LEFT UNIT VIA GURNEY, ESCORTED BY EMT STAFF. TRANSPORTATION IS [facility], RUN # [id number], UNIT# [id number].
== END 2021-12-09 17:00 | DRG 177 ==
LOC: ER 14:12 → TELE 19:39
PROVIDERS: ADMIT Nurse Practitioner Acute Care; ATTEND Nurse Practitioner Acute Care
PROC: 30233N1 Transfusion of Nonautologous Red Blood Cells into Peripheral Vein, Percutaneous Approach (ICD-10-PCS; principal; 2021-12-06)
DX: J69.0 Pneumonitis due to inhalation of food and vomit (principal); G93.41 Metabolic encephalopathy; I21.A1 Myocardial infarction type 2; I50.21 Acute systolic (congestive) heart failure; J96.91 Respiratory failure, unspecified with hypoxia; I25.799 Atherosclerosis of other coronary artery bypass graft(s) with unspecified angina pectoris; F02.84 Dementia in other diseases classified elsewhere, unspecified severity, with anxiety; D68.59 Other primary thrombophilia; Z20.822 Contact with and (suspected) exposure to COVID-19; I11.0 Hypertensive heart disease with heart failure; G20 Parkinson's disease; G30.9 Alzheimer's disease, unspecified; I25.10 Atherosclerotic heart disease of native coronary artery without angina pectoris; D63.8 Anemia in other chronic diseases classified elsewhere; Z74.09 Other reduced mobility; F25.9 Schizoaffective disorder, unspecified; N40.0 Benign prostatic hyperplasia without lower urinary tract symptoms; Z79.899 Other long term (current) drug therapy; F32.9 Major depressive disorder, single episode, unspecified; D50.9 Iron deficiency anemia, unspecified; H26.9 Unspecified cataract; H52.4 Presbyopia; Z86.16 Personal history of COVID-19; Z79.51 Long term (current) use of inhaled steroids; J20.9 Acute bronchitis, unspecified
CPT/HCPCS: 36415; 36600; 71045-TC; 80048-TC; 80061-TC; 80076-TC; 81001; 82272-TC; 82728-TC; 83540-TC; 83605-TC; 83735-TC; 83880; 84100-TC; 84439-TC; 84443-TC; 84484-TC; 85025-TC; 85027-TC; 85730-TC; 86850-TC; 87040-TC; 87081-TC; 87086-TC; 92526; 92611-TC; 93307-TC; 94799-TC; A4216; C9113; C9803; G0378; J1650; J1940; J1956; J2060; J2543; J3370; J7030; J7040; J7050; P9016; Q9967

== ENCOUNTER 2021-12-17 02:55 | Inpatient (IN) | payer MEDICARE, OTHER ==
[~2021-12-17] VITALS: Ht 165.1 cm; Wt 64.4 kg
[~2021-12-17 02:55] MED LIST changes: +ALBU8.5H8 IH; +ALBUT2 NEB; +GUAI10SY3 PO; +IPRA0.2S9 NEB; +IPRA12.9 IH; -LEVO500T90 PO; +LEVO750P5 IV; +PANT40TA2 PO
--- NOTE | 2021-12-17 03:04 | NUR ---
[id number] FROM [facility], [place] C/O HEMATURIA. F/C INSERTED TOOLMAKER HELPER. ON O2 2LPM VIA N/C; TOLERATING WELL WITH NO RESP DISTRESS. SAFETY MEASURES IN PLACE.
--- NOTE | 2021-12-17 03:35 | NUR ---
URINE AND COVID ANTIGEN SWAB COLLECTED AND SENT TO LAB
--- NOTE | 2021-12-17 03:37 | NUR ---
TRACTOR TECHNICIAN AT PT'S BEDSIDE
[2021-12-17 04:12] LABS: BASOPHILS % (AUTO) 0.4 % (0.0-2.0); EOSINOPHILS % (AUTO) 2.5 % (0.0-6.0); HEMATOCRIT 24 % (39-51); HEMOGLOBIN 8.1 g/dL (13.5-17.5); LYMPHOCYTES # (AUTO) 0.6 K/uL (0.8-4.8); LYMPHOCYTES % (AUTO) 8.9 % (20.0-44.0); MEAN CORPUSCULAR HGB CONC 33 g/dl (31.0-36.0); MEAN CORPUSCULAR VOLUME 78 fL (80-96); MONOCYTES # (AUTO) 0.7 K/uL (0.1-1.30); MONOCYTES % (AUTO) 10.7 % (2.0-12.0); NEUTROPHILS # (AUTO) 4.9 K/uL (1.8-8.9); NEUTROPHILS % (AUTO) 77.5 % (43.0-81.0); PLATELET COUNT (AUTO) 296 K/uL (150-450); RED BLOOD CELL COUNT(AUTO) 3.12 MIL/uL (4.5-6.0); WHITE BLOOD COUNT (AUTO) 6.4 K/uL (4.3-11.0)
[2021-12-17 04:20] LABS: BILIRUBIN,URINE NEGATIVE (NEGATIVE); COLOR,URINE RED (YELLOW); LEUKOCYTE ESTERASE ,URINE 3+ (NEGATIVE); NITRITE, URINE POSITIVE (NEGATIVE); PH,URINE 7.5 (5.0-8.0); PROTEIN,URINE 3+ mg/dl (NEGATIVE); UGLUCOSE 1+ mg/dL (NEGATIVE); UROBILINOGEN,URINE >=8.0 EU/dL (0.2)
[2021-12-17 04:31] LABS: RBC,URINE TOO NUMEROUS TO COUN /HPF (0-2)
[2021-12-17 04:32] LABS: BACTERIA,URINE Rare /HPF (None Seen); SQUAMOUS EPITHELIAL CELL,UR None Seen /HPF (None Seen)
[2021-12-17 04:32] LABS: ALANINE AMINOTRANSFERASE 23 U/L (12-78); ALBUMIN 2.4 g/dL (3.4-5.0); ALKALINE PHOSPHATASE 74 U/L (46-116); ASPARTATE AMINOTRANSFERASE 23 U/L (15-37); BILIRUBIN,DIRECT 0.1 mg/dL (0.0-0.2); BILIRUBIN,TOTAL 0.4 mg/dL (0.2-1.0); CALCIUM, SERUM 7.9 mg/dL (8.5-10.1); CARBON DIOXIDE 27 mmol/L (21-32); CHLORIDE 99 mmol/L (98-107); CREATININE 0.8 mg/dL (0.6-1.3); GLUCOSE 102 mg/dL (74-106); POTASSIUM 4.1 mmol/L (3.5-5.1); SODIUM SERUM 130 mmol/L (136-145); TOTAL PROTEIN, SERUM 6.3 g/dL (6.4-8.2); UREA NITROGEN, BLOOD 19 mg/dL (7-18)
[2021-12-17] MEDS ORDERED: PIPERACILLIN /TAZOBACTAM 3.375 G in IV D5W 50 ML IV ONE (05:00)
--- NOTE | 2021-12-17 05:58 | NUR ---
F/C DISLODGED. INSERTED F/C 16FR WITH URINE RETURN; DARK RED COLOR NOTED.
[2021-12-17] MEDS ORDERED: PIPERACILLIN /TAZOBACTAM 3.375 G VIAL IV ONE (06:02)
[2021-12-17] MEDS ORDERED: ONDANSETRON HCL/PF 4 MG/2 ML VIAL IVP PRN (07:00)
[2021-12-17] MEDS ORDERED: ACETAMINOPHEN 325 MG TABLET PO PRN (07:00)
[2021-12-17] MEDS ORDERED: PANT40SU2 PO (07:28)
--- NOTE | 2021-12-17 07:49 | NUR ---
REPORT GIVEN TO DANIEL RN FOR JUAN
[2021-12-17 08:30] VITALS: BP 134/76
--- NOTE | 2021-12-17 08:32 | NUR ---
PT TRANSFERRED TO [facility]- VIA [facility]. WARM HANDOFF GIVEN TO AKOSUA PEREZ
[2021-12-17] MEDS ORDERED: CRANBERRY PO SCH (09:00)
[2021-12-17] MEDS ORDERED: IPRATROPIUM NEB FS 0.5 MG/2.5 ML AMPUL.NEB NEB PRN (09:30)
[2021-12-17] MEDS ORDERED: ALBUTEROL FS 2.5 MG/0.5 ML VIAL.NEB NEB PRN (09:30)
[2021-12-17] MEDS: PANTOPRAZOLE 40 MG/PACK PACK PO SCH (09:42)
[2021-12-17] MEDS: GABAPENTIN 100 MG CAPSULE PO SCH ×4 (09:42→21:22)
[2021-12-17] MEDS: risperiDONE 1 MG TABLET PO SCH ×3 (09:43→17:07)
[2021-12-17] MEDS: DOCUSATE SODIUM 100 MG CAPSULE PO SCH (09:43)
[2021-12-17] MEDS: BENZTROPINE MESYLATE (1 MG) 1 MG TABLET PO SCH ×2 (09:44→17:07)
[2021-12-17] MEDS: PROPRANOLOL HCL 10 MG TABLET PO SCH ×2 (09:44→17:07)
[2021-12-17] MEDS: FERROUS SULFATE (325 MG) 325 MG/TAB TABLET PO SCH ×3 (09:46→17:07)
[2021-12-17 09:57] LABS: HEMOGLOBIN 8.1 g/dL (13.5-17.5)
[2021-12-17 10:25] LABS: IRON, SERUM 12 ug/dl (50-175); TOTAL IRON BINDING CAPACITY 243 ug/dl (250-450)
[2021-12-17 10:37] LABS: FERRITIN 39 ng/mL (8-388)
[2021-12-17] MEDS: CEFTRIAXONE 1 G in IV D5W 50 ML IV SCH (10:47)
--- NOTE | 2021-12-17 11:00 | NUR ---
RN NOTES: PT NOTED IS VERY CONFUSED DOES NOT CALL FOR HELP JUMP OUT OF BED WHILE SIDE RAIL UP NO FALL BUT HE SAYING HE IS GOING TO THE BATHROOM TO URINATE, TALK TO PT HE HAS [place]LL[place] AND HE NEED TO CALL TO GET HELP CONTINUE TO JUMP, PULL OUT HIS IV LINE TRYING TO PULL OUT THE CATHETER, CALLED DR OWUSU WITH ORDER OF BILATERAL SOFT WRIST RESTRAINT, RESTRAINT APPLIED
[2021-12-17] MEDS: LORAZEPAM 1 MG TABLET PO PRN (13:12)
--- NOTE | 2021-12-17 14:33 | NUR ---
RN NOTES: PT PULLED OUT HIS IV LINE, REMOVE THE RESTRAINT WITH HIS TEETH, JUMPED OUT OF BED, ATIVAN EARLIER WAS NOT HELPING SPOKE TO DR OWUSU WITH ORDER TO GIVE HALDOL IM PRN AGITATION
[2021-12-17] MEDS ORDERED: HALOPERIDOL LACTATE INJ 5 MG/ML VIAL IM PRN (15:00)
[2021-12-17 16:00] VITALS: BP 133/48
[2021-12-17] MEDS: PROSOURCE / PROSTAT (PYXIS) 30 ML UDC PO SCH (17:18)
[2021-12-17] MEDS ORDERED: PROSTAT (PYXIS) 30 ML UDC PO SCH (18:00)
[2021-12-17] MEDS ORDERED: FERROUS SULFATE (325 MG) 325 MG/TAB TABLET PO SCH (18:00)
--- NOTE | 2021-12-17 18:16 | NUR ---
RN NOTES; NOTIFIED DR OWUSU CONTINUOS BLADDER IRRIGATION URINE OUTPUT IS CLEAR WITH ORDER TO CHANGE IRRIGATION TO PRN
[2021-12-17 19:03] LABS: HEMOGLOBIN 7.9 g/dL (13.5-17.5)
--- NOTE | 2021-12-17 19:34 | NUR ---
RN NOTES: PT IN BED NOT IN ANY DISTRESS, DENIED PAIN OR DISCOMFORT, CONTINUE TO TOUCH HIS WELLINGTON CATHETER , NO IV LINE HE CONTINUE TO PULL IT OUT, BED KEPT IN LOW AND LOCKED POSITION, BED ALARM IS ON, CONTINUE BILATERAL SOFT RESTRAINT, SKIN INTACT, ENDORSE TO SUTURE POLISHER NURSE FOR JUAN
[2021-12-17 20:00] VITALS: BP 109/64
[2021-12-17] MEDS: TAMSULOSIN 0.4 MG CAP.SR.24H PO SCH (21:21)
[2021-12-17] MEDS: TRAZODONE 50 MG TABLET PO SCH (21:21)
[2021-12-17] MEDS: DONEPEZIL 5 MG TABLET PO SCH (21:22)
[2021-12-17] MEDS: IV NS 0.9% 1,000 ML IV PRN (21:58)
[2021-12-17] MEDS ORDERED: ZOLPIDEM TARTRATE 5 MG TABLET PO PRN (22:00)
[2021-12-18] VITALS (8 sets, daily range): BP systolic 110–151; BP diastolic 63–75
[2021-12-18 02:10] LABS: HEMOGLOBIN 7.3 g/dL (13.5-17.5)
--- NOTE | 2021-12-18 06:55 | NUR ---
MED SURGE CLOSING NOTE: ALERT TIMES ONE. VERBALLY RESPONSIVE. UNLABORED BREATHING. IVF NS 75 ML/HR ON RIGHT FOREARM. IV PATENT. NO S/S OF COMPLICATIONS. BILATERAL SOFT WRIST RESTRAINTS REMOVED WITH SKIN CHECKS CIRCULATION WITHIN NORMAL. NO SKIN BREAKDOWN. [address] WAY [place] CATHETER IN PLACE WITH PINK COLOR URINE. KEPT CLEAN AND COMFORTABLE. TURNED AND REPOSITIONED WITH PILLOWS. HOB SEMI-FOWLERS POSITION. BILATERAL HALF SIDE RAILS UPX2. BED IN LOW POSITION. LOCKED. CALL LIGHT IN REACH.
[2021-12-18 07:39] LABS: CALCIUM, SERUM 7.9 mg/dL (8.5-10.1); MAGNESIUM 2.3 mg/dL (1.8-2.4); POTASSIUM 4.2 mmol/L (3.5-5.1)
[2021-12-18 08:17] LABS: ALBUMIN 2.4 g/dL (3.4-5.0); BILIRUBIN,TOTAL 0.3 mg/dL (0.2-1.0); TOTAL PROTEIN, SERUM 6.2 g/dL (6.4-8.2)
[2021-12-18 08:31] LABS: BASOPHILS % (AUTO) 0.4 % (0.0-2.0); EOSINOPHILS % (AUTO) 1.9 % (0.0-6.0); HEMATOCRIT 23 % (39-51); HEMOGLOBIN 7.4 g/dL (13.5-17.5); LYMPHOCYTES # (AUTO) 0.8 K/uL (0.8-4.8); LYMPHOCYTES % (AUTO) 10.9 % (20.0-44.0); MEAN CORPUSCULAR HGB CONC 33 g/dl (31.0-36.0); MEAN CORPUSCULAR VOLUME 79 fL (80-96); MONOCYTES # (AUTO) 1.2 K/uL (0.1-1.30); MONOCYTES % (AUTO) 16.2 % (2.0-12.0); NEUTROPHILS # (AUTO) 5.3 K/uL (1.8-8.9); NEUTROPHILS % (AUTO) 70.6 % (43.0-81.0); PLATELET COUNT (AUTO) 283 K/uL (150-450); RED BLOOD CELL COUNT(AUTO) 2.86 MIL/uL (4.5-6.0); WHITE BLOOD COUNT (AUTO) 7.5 K/uL (4.3-11.0)
[2021-12-18] MEDS: BENZTROPINE MESYLATE (1 MG) 1 MG TABLET PO SCH ×2 (10:14→21:42)
[2021-12-18] MEDS: CEFTRIAXONE 1 G in IV D5W 50 ML IV SCH (10:14)
[2021-12-18] MEDS: risperiDONE 1 MG TABLET PO SCH ×3 (10:14→21:42)
[2021-12-18] MEDS: PANTOPRAZOLE 40 MG/PACK PACK PO SCH (10:14)
[2021-12-18] MEDS: CHOLECALCIFEROL 1,000 UNIT TABLET (VIT D3) PO SCH (10:14)
[2021-12-18] MEDS: SODIUM CHLORIDE 1000 MG TABLET PO SCH (10:15)
[2021-12-18] MEDS: DOCUSATE SODIUM 100 MG CAPSULE PO SCH (10:15)
[2021-12-18] MEDS: GABAPENTIN 100 MG CAPSULE PO SCH ×4 (10:15→21:45)
[2021-12-18] MEDS: PROPRANOLOL HCL 10 MG TABLET PO SCH ×2 (10:15→21:44)
[2021-12-18] MEDS: FERROUS SULFATE (325 MG) 325 MG/TAB TABLET PO SCH (10:17)
[2021-12-18] MEDS ORDERED: SOD FERRIC GLUC 125 MG in IV NS 0.9% 100 ML IV SCH (11:30)
[2021-12-18 12:49] LABS: BAND % (MANUAL) 2 % (0.0-5.0); EOSINOPHILS % (MANUAL) 1 % (0-4); LYMPHOCYTES % (MANUAL) 8 % (16-48); MONOCYTES % (MANUAL) 10 % (0-11.0); NEUTROPHILS % (MANUAL) 79 (42-76)
[2021-12-18] MEDS: SOD FERRIC GLUC 125 MG in IV NS 0.9% 100 ML IV SCH (14:57)
[2021-12-18] MEDS: LORAZEPAM 1 MG TABLET PO PRN (18:01)
--- NOTE | 2021-12-18 21:20 | NUR ---
RN NOTE RBC TRANSFUSION COMPLETED. NO ADVERSE REACTIONS NOTED. VITALS TAKEN: BP: 124/69, ORAL TEMP: 97.9; RR: 20, HR: 79, O2 SAT OF 100%.
[2021-12-18] MEDS: PROSOURCE / PROSTAT (PYXIS) 30 ML UDC PO SCH (21:41)
[2021-12-18] MEDS: TAMSULOSIN 0.4 MG CAP.SR.24H PO SCH (21:42)
[2021-12-18] MEDS: DONEPEZIL 5 MG TABLET PO SCH (21:42)
[2021-12-18] MEDS: TRAZODONE 50 MG TABLET PO SCH (21:43)
[2021-12-19] VITALS: BP 147/64
--- NOTE | 2021-12-19 00:30 | NUR ---
RN OPENING NOTE PATIENT IN BED, AOX2 VERBALLY RESPONSIVE, ON RA, TOLERATING WELL, NO S/S OF RESP DISTRESS. TELE MONITOR READING SR. IV ACCESS RFA #18G. RUNNING NS@75ML/HR. BILATERAL SOFT WRIST RESTRAINTS INPLACE, WILL CHECK SKIN AND CIRCULATION Q2H. WELL[place] IN PLACE DRAINING CLEAR YELLOW/NICK URINE. ALL SAFETY MEASURES IN PLACE, BED IN LOWEST POSITION AND LOCKED. BED ALARM ON. SIDE RAILS UP X3, PLACE CALL LIGHT WITH IN REACH. WILL CONTINUE TO MONITOR.
--- NOTE | 2021-12-19 00:43 | NUR ---
RN CLOSING NOTE PATIENT IN BED, AOX2 VERBALLY RESPONSIVE. UNLABORED BREATHING. IVF NS 75 ML/HR ON RIGHT FOREARM 18GAUGE. NO S/S OF COMPLICATIONS. BILATERAL SOFT WRIST RESTRAINTS REMOVED WITH SKIN CHECKS CIRCULATION WITHIN NORMAL. NO SKIN BREAKDOWN. [address] WAY [place] CATHETER IN PLACE WITH YELLOW COLOR URINE. KEPT CLEAN AND COMFORTABLE. TURNED AND REPOSITIONED WITH PILLOWS. HOB SEMI-FOWLERS POSITION. BILATERAL HALF SIDE RAILS UPX2. BED IN LOW POSITION. LOCKED. CALL LIGHT IN REACH. WILL ENDORSE CONTINUITY OF CARE TO DANDY TENDER NURSE
[2021-12-19 02:10] LABS: HEMOGLOBIN 8.5 g/dL (13.5-17.5)
--- NOTE | 2021-12-19 06:50 | NUR ---
RN CLOSING NOTE PATIENT IN BED, AOX2 VERBALLY RESPONSIVE, ON RA, TOLERATING WELL, NO S/S OF RESP DISTRESS. TELE MONITOR READING SR. IV ACCESS RFA #18G. RUNNING NS@75ML/HR. BILATERAL SOFT WRIST RESTRAINTS INPLACE, CHECKED Q2H AND REMOVED FOR ROM WITH SKIN CHECKS & CIRCULATIONWITHIN NORMAL. [place] IN PLACE DRAINED 700ML. ALL SAFETY MEASURES IN PLACE, BED IN LOWEST POSITION AND LOCKED. BED ALARM ON. SIDE RAILS UP X3, PLACE CALL LIGHT WITH IN REACH. WILL ENDORSE TO MORNING SHIFT FOR JUAN.
[2021-12-19 06:53] LABS: BASOPHILS % (AUTO) 0.3 % (0.0-2.0); EOSINOPHILS % (AUTO) 3.5 % (0.0-6.0); HEMATOCRIT 25 % (39-51); LYMPHOCYTES # (AUTO) 1.1 K/uL (0.8-4.8); MEAN CORPUSCULAR HGB CONC 33 g/dl (31.0-36.0); MEAN CORPUSCULAR VOLUME 80 fL (80-96); MONOCYTES % (AUTO) 15.5 % (2.0-12.0); NEUTROPHILS # (AUTO) 4.3 K/uL (1.8-8.9); NEUTROPHILS % (AUTO) 64.7 % (43.0-81.0); PLATELET COUNT (AUTO) 265 K/uL (150-450); RED BLOOD CELL COUNT(AUTO) 3.07 MIL/uL (4.5-6.0); WHITE BLOOD COUNT (AUTO) 6.7 K/uL (4.3-11.0)
[2021-12-19 07:12] LABS: ALANINE AMINOTRANSFERASE 22 U/L (12-78); ALBUMIN 2.2 g/dL (3.4-5.0); ALKALINE PHOSPHATASE 66 U/L (46-116); ASPARTATE AMINOTRANSFERASE 29 U/L (15-37); BILIRUBIN,TOTAL 0.7 mg/dL (0.2-1.0); CALCIUM, SERUM 7.7 mg/dL (8.5-10.1); CARBON DIOXIDE 24 mmol/L (21-32); CHLORIDE 102 mmol/L (98-107); CREATININE 0.8 mg/dL (0.6-1.3); GLUCOSE 97 mg/dL (74-106); POTASSIUM 3.8 mmol/L (3.5-5.1); SODIUM SERUM 134 mmol/L (136-145); TOTAL PROTEIN, SERUM 5.8 g/dL (6.4-8.2); UREA NITROGEN, BLOOD 23 mg/dL (7-18)
--- NOTE | 2021-12-19 07:28 | NUR ---
RN OPENING NOTE PATIENT IN BED, AOX2 VERBALLY RESPONSIVE, ON RA, TOLERATING WELL, NO S/S OF RESP DISTRESS. TELE MONITOR READING SR. IV ACCESS RFA #18G. RUNNING NS@75ML/HR. BILATERAL SOFT WRIST RESTRAINTS INPLACE. [place] IN PLACE DRAINING CLEAR YELLOW/NICK URINE. ALL SAFETY MEASURES IN PLACE, BED IN LOWEST POSITION AND LOCKED. BED ALARM ON. SIDE RAILS UP X3, PLACE CALL LIGHT WITH IN REACH.
[2021-12-19 08:00] VITALS: BP 138/71
[2021-12-19] MEDS: BENZTROPINE MESYLATE (1 MG) 1 MG TABLET PO SCH ×2 (09:03→18:05)
[2021-12-19] MEDS: CEFTRIAXONE 1 G in IV D5W 50 ML IV SCH (09:03)
[2021-12-19] MEDS: GABAPENTIN 100 MG CAPSULE PO SCH ×4 (09:03→21:10)
[2021-12-19] MEDS: PROPRANOLOL HCL 10 MG TABLET PO SCH ×2 (09:04→18:05)
[2021-12-19] MEDS: risperiDONE 1 MG TABLET PO SCH ×3 (09:04→18:04)
[2021-12-19] MEDS: DOCUSATE SODIUM 100 MG CAPSULE PO SCH (09:04)
[2021-12-19] MEDS: PANTOPRAZOLE 40 MG/PACK PACK PO SCH (09:06)
[2021-12-19] MEDS: CHOLECALCIFEROL 1,000 UNIT TABLET (VIT D3) PO SCH (09:06)
[2021-12-19] MEDS: SODIUM CHLORIDE 1000 MG TABLET PO SCH (09:13)
[2021-12-19 09:22] LABS: HEMOGLOBIN 8.7 g/dL (13.5-17.5)
[2021-12-19 12:00] VITALS: BP 129/72
[2021-12-19] MEDS: SOD FERRIC GLUC 125 MG in IV NS 0.9% 100 ML IV SCH (14:43)
[2021-12-19] MEDS: IV NS 0.9% 1,000 ML IV PRN (14:44)
[2021-12-19 16:00] VITALS: BP 128/66
[2021-12-19] MEDS: PROSOURCE / PROSTAT (PYXIS) 30 ML UDC PO SCH (18:06)
--- NOTE | 2021-12-19 18:53 | NUR ---
RN CLOSING NOTE PATIENT IN BED, AOX2 VERBALLY RESPONSIVE, ON RA, TOLERATING WELL, NO S/S OF RESP DISTRESS. TELE MONITOR READING SR. IV ACCESS RFA #18G. RUNNING NS@75ML/HR. BILATERAL SOFT WRIST RESTRAINTS INPLACE, CHECKED Q2H AND REMOVED FOR ROM WITH SKIN CHECKS & CIRCULATION WITHIN NORMAL. [place] IN PLACE. ALL SAFETY MEASURES IN PLACE, BED IN LOWEST POSITION AND LOCKED. BED ALARM ON. SIDE RAILS UP X3, PLACE CALL LIGHT WITH IN REACH. WILL ENDORSE TO AOC DIRECTOR COMBAT PLANS OFFICER FOR JUAN.
[2021-12-19 19:00] LABS: HEMOGLOBIN 8.5 g/dL (13.5-17.5)
--- NOTE | 2021-12-19 19:30 | NUR ---
RN OPENING NOTE RECEIVED PATIENT IN BED, A/O X 1-2. CURRENTLY ON RA, TOLERATING WELL. NO S/SX OF ACUTE RESPI DISTRESS NOTED AT THIS TIME. ON TELE MONITOR SHOWING SR WITH HR OF 66. IV ACCESS IS ON RFA #18G, RUNNING NS @75 ML/HR. BILATERAL SOFT WRIST RESTRAINTS IN PLACE. NO CIRCULATION ISSUES NOTED AT THIS TIME. [place] CATH IN PLACE DRAINING CLEAR YELLOW/NICK URINE BY GRAVITY. ALL SAFETY MEASURES IN PLACE: BED IN LOWEST POSITION AND LOCKED. BED ALARM ON. SIDE RAILS UP X3, CALL LIGHT WITHIN REACH. WILL CONTINUE TO MONITOR.
[2021-12-19 20:00] VITALS: BP 131/55
[2021-12-19] MEDS: DONEPEZIL 5 MG TABLET PO SCH (21:10)
[2021-12-19] MEDS: TAMSULOSIN 0.4 MG CAP.SR.24H PO SCH (21:10)
[2021-12-19] MEDS: TRAZODONE 50 MG TABLET PO SCH (21:12)
[2021-12-20 01:48] LABS: HEMOGLOBIN 8.9 g/dL (13.5-17.5)
[2021-12-20 04:00] VITALS: BP 156/62
[2021-12-20] MEDS: IV NS 0.9% 1,000 ML IV PRN (04:18)
--- NOTE | 2021-12-20 05:44 | NUR ---
RN NOTE NO SIGNIFICANT CHANGES T/O THE NIGHT. PT URINE STILL TEA COLORED, NO BLEEDING NOTED. PM CARE DONE. TURNED AND REPOSITIONED. DUE MEDS GIVEN. WILL ENDORSE TO AM SHIFT NURSE FOR JUAN.
--- NOTE | 2021-12-20 07:12 | NUR ---
RN OPENING NOTE RECEIVED PATIENT IN BED, A/O X 1-2. CURRENTLY ON RA, TOLERATING WELL. NO S/SX OF ACUTE RESPI DISTRESS NOTED AT THIS TIME. ON TELE MONITOR. IV ACCESS IS ON RFA #18G, RUNNING NS @75 ML/HR. BILATERAL SOFT WRIST RESTRAINTS IN PLACE. NO CIRCULATION ISSUES NOTED AT THIS TIME. [place] CATH IN PLACE DRAINING YELLOW/NICK URINE BY GRAVITY. ALL SAFETY MEASURES IN PLACE: BED IN LOWEST POSITION AND LOCKED. BED ALARM ON. SIDE RAILS UP X3, CALL LIGHT WITHIN REACH.
[2021-12-20 07:15] LABS: BASOPHILS % (AUTO) 0.3 % (0.0-2.0); EOSINOPHILS % (AUTO) 2.9 % (0.0-6.0); HEMATOCRIT 27 % (39-51); HEMOGLOBIN 8.9 g/dL (13.5-17.5); LYMPHOCYTES # (AUTO) 0.9 K/uL (0.8-4.8); LYMPHOCYTES % (AUTO) 16.1 % (20.0-44.0); MEAN CORPUSCULAR HGB CONC 33 g/dl (31.0-36.0); MEAN CORPUSCULAR VOLUME 81 fL (80-96); MONOCYTES # (AUTO) 0.9 K/uL (0.1-1.30); MONOCYTES % (AUTO) 16.4 % (2.0-12.0); NEUTROPHILS # (AUTO) 3.6 K/uL (1.8-8.9); NEUTROPHILS % (AUTO) 64.3 % (43.0-81.0); PLATELET COUNT (AUTO) 285 K/uL (150-450); RED BLOOD CELL COUNT(AUTO) 3.29 MIL/uL (4.5-6.0); WHITE BLOOD COUNT (AUTO) 5.7 K/uL (4.3-11.0)
[2021-12-20 07:42] LABS: ALANINE AMINOTRANSFERASE 21 U/L (12-78); ALBUMIN 2.4 g/dL (3.4-5.0); ALKALINE PHOSPHATASE 69 U/L (46-116); ASPARTATE AMINOTRANSFERASE 23 U/L (15-37); BILIRUBIN,TOTAL 0.3 mg/dL (0.2-1.0); CALCIUM, SERUM 8.1 mg/dL (8.5-10.1); CARBON DIOXIDE 25 mmol/L (21-32); CHLORIDE 104 mmol/L (98-107); CREATININE 0.7 mg/dL (0.6-1.3); GLUCOSE 99 mg/dL (74-106); POTASSIUM 3.6 mmol/L (3.5-5.1); SODIUM SERUM 136 mmol/L (136-145); TOTAL PROTEIN, SERUM 6.4 g/dL (6.4-8.2); UREA NITROGEN, BLOOD 17 mg/dL (7-18)
[2021-12-20 07:54] LABS: MAGNESIUM 2.1 mg/dL (1.8-2.4); PHOSPHORUS 3.3 mg/dL (2.5-4.9)
[2021-12-20 08:00] VITALS: BP 148/71
[2021-12-20 09:26] LABS: HEMOGLOBIN 8.6 g/dL (13.5-17.5)
[2021-12-20] MEDS: SODIUM CHLORIDE 1000 MG TABLET PO SCH (09:38)
[2021-12-20] MEDS: CEFTRIAXONE 1 G in IV D5W 50 ML IV SCH (09:38)
[2021-12-20] MEDS: CHOLECALCIFEROL 1,000 UNIT TABLET (VIT D3) PO SCH (09:39)
[2021-12-20] MEDS: DOCUSATE SODIUM 100 MG CAPSULE PO SCH (09:39)
[2021-12-20] MEDS: PROPRANOLOL HCL 10 MG TABLET PO SCH (09:39)
[2021-12-20] MEDS: risperiDONE 1 MG TABLET PO SCH ×2 (09:39→12:34)
[2021-12-20] MEDS: GABAPENTIN 100 MG CAPSULE PO SCH ×2 (09:39→12:34)
[2021-12-20] MEDS: PANTOPRAZOLE 40 MG/PACK PACK PO SCH (09:39)
[2021-12-20] MEDS: BENZTROPINE MESYLATE (1 MG) 1 MG TABLET PO SCH (09:39)
[2021-12-20] MEDS ORDERED: LEVO500T90 PO (10:00)
[2021-12-20] MEDS ORDERED: FERR325T23 PO (10:00)
[2021-12-20 12:00] VITALS: BP 138/75
--- NOTE | 2021-12-20 14:36 | NUR ---
RN NOTE DC REPORT GIVEN TO JOHNNA IN [facility] PATIENT WILL BE PLACED IN ROOM 110. PITCKED UP BY AMS IN STABLE CONDITION.
[2021-12-20 15:06] LABS: BAND % (MANUAL) 1 % (0.0-5.0); NEUTROPHILS % (MANUAL) 78 (42-76)
[2021-12-20 15:07] LABS: EOSINOPHILS % (MANUAL) 3 % (0-4); LYMPHOCYTES % (MANUAL) 12 % (16-48); MONOCYTES % (MANUAL) 6 % (0-11.0)
== END 2021-12-20 14:28 | DRG 690 ==
LOC: ER 03:04 → MEDSG1 07:53 → TELE1 12-18 20:47
PROVIDERS: ADMIT Internal Medicine; ATTEND Registered Nurse
PROC: 30233N1 Transfusion of Nonautologous Red Blood Cells into Peripheral Vein, Percutaneous Approach (ICD-10-PCS; principal; 2021-12-18)
DX: N39.0 Urinary tract infection, site not specified (principal); E87.1 Hypo-osmolality and hyponatremia; E44.1 Mild protein-calorie malnutrition; R31.9 Hematuria, unspecified; N40.0 Benign prostatic hyperplasia without lower urinary tract symptoms; D50.9 Iron deficiency anemia, unspecified; Z20.822 Contact with and (suspected) exposure to COVID-19; F02.80 Dementia in other diseases classified elsewhere, unspecified severity, without behavioral disturbance, psychotic disturbance, mood disturbance, and anxiety; G30.9 Alzheimer's disease, unspecified; G20 Parkinson's disease; I10 Essential (primary) hypertension; E88.09 Other disorders of plasma-protein metabolism, not elsewhere classified; H26.9 Unspecified cataract; G62.9 Polyneuropathy, unspecified; F41.9 Anxiety disorder, unspecified; F32.9 Major depressive disorder, single episode, unspecified; F20.9 Schizophrenia, unspecified; D64.9 Anemia, unspecified; H52.4 Presbyopia; Z86.16 Personal history of COVID-19; Z79.51 Long term (current) use of inhaled steroids; Z79.899 Other long term (current) drug therapy; B96.89 Other specified bacterial agents as the cause of diseases classified elsewhere
CPT/HCPCS: 36415; 80048-TC; 80053-TC; 80076-TC; 81001; 82728-TC; 83540-TC; 83735-TC; 84100-TC; 85025-TC; 85027-TC; 85730-TC; 86850-TC; 87086-TC; A4217; A6403; C9803; G0378; J0696; J1630; J2543; J2916; J7030; J7050; J7060; P9016